=== PATIENT | female | born 1990 | race African-American/Black ===

== ENCOUNTER 2018-03-15 02:00 | Observation (INO) ==
[2018-03-15] MEDS ORDERED: diphenhydrAMINE 50 MG/1 ML VIAL IV STA (05:51)
[2018-03-15] MEDS ORDERED: ONDANSETRON 4 MG/2 ML VIAL IV STA (05:51)
[2018-03-15] MEDS ORDERED: HYDROmorphone 2 MG/1 ML VIAL IV STA ×2 (05:51→06:55)
[2018-03-15] MEDS ORDERED: SODIUM CHLORIDE 0.9% 1,000 ML IV STA ×2 (05:52→05:53)
[2018-03-15] MEDS ORDERED: ASPIRIN 325 MG TABLET PO STA (05:53)
[2018-03-15 06:34] LABS: Basophils % 0.5 % (0.0-0.8); Eosinophils # 0.1 10*3/uL (0.0-0.87); Eosinophils % 0.8 % (0.00-10.9); Hematocrit 23.4 VOL% (35.7-47.0); Hemoglobin 7.8 GM/DL (12.0-16.0); Immature Granulocytes % 0.5 %; Immature Granulocytes Absolute 0.04 #; Lymphocytes % 47.3 % (21.3-54.2); Mean Corpuscular HGB Conc 33.3 GM/DL (32-36); Mean Corpuscular Hemoglobin 31 PG (27-34); Mean Corpuscular Volume 91.4 FL (87-102); Mean Platelet Volume 8.9 FL (9.6-12.0); Monocytes % 11.3 % (1.7-12.7); NRBC # 1.46 10*3/uL; Neutrophils # 3.4 10*3/uL (1.4-7.4); Neutrophils % 39.6 % (38.7-73.9); Platelet Count 453 T/CUMM (130-400); Red Blood Count 2.56 MC/CUMM (3.8-5.5); White Blood Count 8.6 T/CUMM (4-12)
[2018-03-15 07:01] LABS: Albumin 4.2 G/DL (3.4-5.0); Bilirubin,Total 2.6 MG/DL (0.2-1.0); Calcium 8.9 MG/DL (8.5-10.1); Potassium 3.4 MMOL/L (3.5-5.1); Total Protein 7.5 G/DL (6.4-8.3)
[2018-03-15 07:35] LABS: Anisocytosis Slight; Band Neutrophils 1 % (0-10); Elliptocytes 1+; Lymphocytes 70 % (20-55); Macrocytosis Slight; Nucleated Red Blood Cells 16 (0-5); Segmented Neutrophils 27 % (50-85); Sickle Cells Few; Target Cells Few; Total Cells Counted 100
[2018-03-15 07:36] LABS: Platelet Estimate Normal
[2018-03-15] MEDS ORDERED: ONDANSETRON 4 MG/2 ML VIAL IV PRN (08:11)
[2018-03-15] MEDS ORDERED: LIDOCAINE 5% PATCH TRANSDERM PRN (08:16)
[2018-03-15] MEDS ORDERED: METHOCARBAMOL 500 MG TABLET PO PRN (08:16)
[2018-03-15] MEDS: PANTOPRAZOLE 40 MG TABLET PO SCH (12:53)
[2018-03-15] MEDS: MONTELUKAST 10 MG TABLET PO SCH (12:53)
[2018-03-15] MEDS: FOLIC ACID 1 MG TABLET PO SCH (12:53)
[2018-03-15] MEDS: HYDROmorphone 2 MG/1 ML VIAL IV PRN ×3 (13:16→21:18)
[2018-03-15] MEDS: diphenhydrAMINE CAP 25 MG CAPSULE PO PRN ×2 (13:19→21:18)
[2018-03-15] MEDS: SODIUM CHLOR 0.9% KCL 20 MEQ 20 MEQ/1,000 ML BAG IV SCH ×2 (13:20→21:18)
[2018-03-15 18:43] LABS: Apearance,Urine CLEAR (Clear); Bacteria,Urine Occasional /HPF (Few); Bilirubin,Urine Negative (Negative); Blood, Urine Moderate mg/dL (Negative); Glucose,Urine (UA) Negative (Negative); Ketones,Urine Negative (Negative); Mucus,Urine Occasional /LPF (Occasional); Nitrite,Urine Negative (Negative); Protein,Urine Negative; Squamous Epithelial Cell,Urine Occasional /HPF (0-10); Urine Color Straw (Yellow); Urine Specific Gravity 1.006 (1.001-1.035); Urine Urobilinogen < 2.0 EU/DL (0.2-1.0); WBC,Urine <1 /HPF (0-6)
[2018-03-15 20:16] LABS: Barbiturates Screen,Urine Negative (Negative); Benzodiazepines Screen,Urine Negative (Negative); Cannabinoid Screen,Urine Negative (Negative); Opiate Screen,Urine Positive (Negative); Phencyclidine Screen,Urine Negative (Negative)
[2018-03-15] MEDS: HYDROXYUREA 500 MG CAPSULE PO SCH (20:34)
[2018-03-15] MEDS: DOCUSATE SODIUM 100 MG CAPSULE PO SCH (20:34)
[2018-03-16] MEDS: HYDROmorphone 2 MG/1 ML VIAL IV PRN ×6 (02:08→22:03)
[2018-03-16] MEDS ORDERED: HEPARIN LOCK FLUSH 500 UNIT/5 ML SYRINGE IV ONE (04:05)
[2018-03-16 05:17] LABS: Basophils % 0.3 % (0.0-0.8); Eosinophils # 0.2 10*3/uL (0.0-0.87); Eosinophils % 2.2 % (0.00-10.9); Hematocrit 24.2 VOL% (35.7-47.0); Hemoglobin 7.7 GM/DL (12.0-16.0); Immature Granulocytes % 0.5 %; Immature Granulocytes Absolute 0.05 #; Lymphocytes # 4.5 10*3/uL (1.4-4.0); Lymphocytes % 44.4 % (21.3-54.2); Mean Corpuscular HGB Conc 31.8 GM/DL (32-36); Mean Corpuscular Hemoglobin 30 PG (27-34); Mean Corpuscular Volume 93.4 FL (87-102); Mean Platelet Volume 9.7 FL (9.6-12.0); Monocytes # 1.2 10*3/uL (0.11-0.8); Monocytes % 11.9 % (1.7-12.7); Neutrophils # 4.1 10*3/uL (1.4-7.4); Neutrophils % 40.7 % (38.7-73.9); Platelet Count 461 T/CUMM (130-400); Red Blood Count 2.59 MC/CUMM (3.8-5.5); Red Cell Distribution Width 21.3 % (9.3-17.3)
[2018-03-16 05:32] LABS: Calcium 9.1 MG/DL (8.5-10.1); Osmolality,Calculated 277.3 MOS/KG (273-304); Potassium 4.2 MMOL/L (3.5-5.1)
[2018-03-16 05:46] LABS: Eosinophils 4 % (0-10); Lymphocytes 46 % (20-55); Nucleated Red Blood Cells 23 (0-5); Segmented Neutrophils 42 % (50-85); Total Cells Counted 100
[2018-03-16 05:47] LABS: Hypochromasia 1+; Microcytosis 1+; Ovalocytes Few; Pappenheimer Bodies 1+; Polychromasia Few; Sickle Cells Few
[2018-03-16 05:48] LABS: Howell-Jolly Bodies Slight; Platelet Estimate Increased
[2018-03-16 05:49] LABS: Anisocytosis 1+; Poikilocytosis 1+
[2018-03-16] MEDS: SODIUM CHLOR 0.9% KCL 20 MEQ 20 MEQ/1,000 ML BAG IV SCH (06:02)
[2018-03-16] MEDS: FOLIC ACID 1 MG TABLET PO SCH (08:34)
[2018-03-16] MEDS: DOCUSATE SODIUM 100 MG CAPSULE PO SCH ×2 (08:34→20:55)
[2018-03-16] MEDS: PANTOPRAZOLE 40 MG TABLET PO SCH (08:34)
[2018-03-16] MEDS: MONTELUKAST 10 MG TABLET PO SCH (08:34)
[2018-03-16] MEDS ORDERED: SODIUM CHLORIDE 0.9% 1,000 ML IV PRN (09:08)
[2018-03-16] MEDS ORDERED: oxyCODONE/ACETAMINOPHEN 5-325 MG TABLET PO PRN (11:58)
[2018-03-16] MEDS ORDERED: diphenhydrAMINE 50 MG/1 ML VIAL IV ONE (15:10)
[2018-03-16] MEDS ORDERED: ACETAMINOPHEN 325 MG TABLET PO ONE (15:11)
[2018-03-16] MEDS: diphenhydrAMINE CAP 25 MG CAPSULE PO PRN (19:29)
[2018-03-16] MEDS: HYDROXYUREA 500 MG CAPSULE PO SCH (20:55)
[2018-03-17] MEDS: diphenhydrAMINE CAP 25 MG CAPSULE PO PRN ×2 (00:04→08:04)
[2018-03-17] MEDS ORDERED: diphenhydrAMINE 50 MG/1 ML VIAL IV ONE (00:21)
[2018-03-17] MEDS: HYDROmorphone 2 MG/1 ML VIAL IV PRN ×3 (02:18→09:59)
[2018-03-17 02:30] LABS: Basophils % 0.4 % (0.0-0.8); Eosinophils # 0.2 10*3/uL (0.0-0.87); Eosinophils % 2.5 % (0.00-10.9); Hematocrit 30.1 VOL% (35.7-47.0); Hemoglobin 10.4 GM/DL (12.0-16.0); Immature Granulocytes % 0.4 %; Immature Granulocytes Absolute 0.03 #; Lymphocytes # 3.9 10*3/uL (1.4-4.0); Lymphocytes % 46.4 % (21.3-54.2); Mean Corpuscular HGB Conc 34.6 GM/DL (32-36); Mean Corpuscular Hemoglobin 31 PG (27-34); Mean Corpuscular Volume 90.1 FL (87-102); Mean Platelet Volume 8.6 FL (9.6-12.0); Monocytes % 12.2 % (1.7-12.7); NRBC # 0.69 10*3/uL; Neutrophils # 3.2 10*3/uL (1.4-7.4); Neutrophils % 38.1 % (38.7-73.9); Platelet Count 387 T/CUMM (130-400); Red Blood Count 3.34 MC/CUMM (3.8-5.5); Red Cell Distribution Width 18.2 % (9.3-17.3); White Blood Count 8.4 T/CUMM (4-12)
[2018-03-17 03:04] LABS: Eosinophils 3 % (0-10); Lymphocytes 65 % (20-55); Nucleated Red Blood Cells 10 (0-5); Segmented Neutrophils 25 % (50-85); Total Cells Counted 100
[2018-03-17 03:05] LABS: Ovalocytes 1+; Platelet Estimate Normal; Sickle Cells Few; Target Cells Few
[2018-03-17 07:40] VITALS: BP 107/53
[2018-03-17] MEDS: FOLIC ACID 1 MG TABLET PO SCH (10:03)
[2018-03-17] MEDS: MONTELUKAST 10 MG TABLET PO SCH (10:04)
[2018-03-17] MEDS: PANTOPRAZOLE 40 MG TABLET PO SCH (10:04)
[2018-03-17] MEDS: DOCUSATE SODIUM 100 MG CAPSULE PO SCH (10:04)
[2018-03-17] MEDS ORDERED: HEPARIN LOCK FLUSH 500 UNIT/5 ML SYRINGE IV ONE (11:05)
== END 2018-03-17 11:40 | disposition home or self-care (01) ==
LOC: N.ED 02:00 → N.EDINP 02:00 → SUATTDRO 08:11 → N.4E 09:42
PROVIDERS: ADMIT Internal Medicine; ATTEND Internal Medicine

== ENCOUNTER 2018-05-22 14:12 | Inpatient (IN) ==
[2018-05-22] MEDS ORDERED: SODIUM CHLORIDE 0.9% 1,000 ML IV STA ×2 (15:03→17:19)
[2018-05-22] MEDS ORDERED: MORPHINE 4 MG/1 ML VIAL IV STA (15:03)
[2018-05-22] MEDS ORDERED: MORPHINE 4 MG/1 ML VIAL ONE (15:20)
[2018-05-22] MEDS ORDERED: HYDROmorphone 2 MG/1 ML VIAL IV STA ×2 (15:23→17:18)
[2018-05-22] MEDS ORDERED: HYDROmorphone 2 MG/1 ML VIAL ONE ×2 (15:26→17:14)
[2018-05-22 15:36] LABS: Basophils % 0.4 % (0.0-0.8); Eosinophils # 0.1 10*3/uL (0.0-0.87); Eosinophils % 0.7 % (0.00-10.9); Immature Granulocytes % 0.4 %; Immature Granulocytes Absolute 0.03 #; Lymphocytes # 1.8 10*3/uL (1.4-4.0); Lymphocytes % 24.9 % (21.3-54.2); Mean Corpuscular HGB Conc 32.2 GM/DL (32-36); Mean Corpuscular Hemoglobin 30 PG (27-34); Mean Corpuscular Volume 91.6 FL (87-102); Monocytes # 1.5 10*3/uL (0.11-0.8); Monocytes % 20.5 % (1.7-12.7); NRBC # 0.09 10*3/uL; Neutrophils # 3.9 10*3/uL (1.4-7.4); Neutrophils % 53.1 % (38.7-73.9); Platelet Count 305 T/CUMM (130-400); Red Blood Count 1.66 MC/CUMM (3.8-5.5); Red Cell Distribution Width 19.4 % (9.3-17.3); White Blood Count 7.3 T/CUMM (4-12)
[2018-05-22 15:39] LABS: Hemoglobin 4.9 GM/DL (12.0-16.0)
[2018-05-22 15:40] LABS: Hematocrit 15.2 VOL% (35.7-47.0)
[2018-05-22 15:49] LABS: Apearance,Urine CLEAR (Clear); Bacteria,Urine Occasional /HPF (Few); Bilirubin,Urine Negative (Negative); Blood, Urine Negative (Negative); Glucose,Urine (UA) Negative (Negative); Ketones,Urine Negative (Negative); Nitrite,Urine Negative (Negative); Protein,Urine Negative; RBC,Urine <1 /HPF (0-4); Squamous Epithelial Cell,Urine Occasional /HPF (0-10); Urine Color Yellow (Yellow); Urine Specific Gravity 1.005 (1.001-1.035); WBC,Urine <1 /HPF (0-6)
[2018-05-22 16:18] LABS: INR 1.1; PT Patient Result 11.4 SECS; Partial Thromboplastin Time 29.2 SECS (0-40)
[2018-05-22 16:20] LABS: Alanine Aminotransferase 16 U/L (13-56); Albumin 2.5 G/DL (3.4-5.0); Alkaline Phosphatase 49 U/L (45-117); Aspartate Amino Transferase 24 U/L (0-37); Blood Urea Nitrogen 2 MG/DL (7-18); Glucose 60 MG/DL (74-106); Osmolality,Calculated 285.4 MOS/KG (273-304); Sodium 147 MMOL/L (136-145); Total Protein 4.5 G/DL (6.4-8.3); Troponin I < 0.015 NG/ML (0.00-0.045)
[2018-05-22 16:42] LABS: Calcium 8.7 MG/DL (8.5-10.1); Potassium 3.8 MMOL/L (3.5-5.1)
[2018-05-22 17:22] LABS: Lymphocytes 26 % (20-55); Nucleated Red Blood Cells 1 (0-5); Segmented Neutrophils 60 % (50-85)
[2018-05-22 17:23] LABS: Hypochromasia 1+; Macrocytosis Slight; Microcytosis Slight; Polychromasia Few
[2018-05-22] MEDS ORDERED: diphenhydrAMINE CAP 25 MG CAPSULE PO STA (17:23)
[2018-05-22 17:24] LABS: Sickle Cells Few
[2018-05-22 17:25] LABS: Platelet Estimate Normal; Total Cells Counted 100
[2018-05-22] MEDS ORDERED: diphenhydrAMINE CAP 25 MG CAPSULE ONE (17:25)
[2018-05-22] MEDS ORDERED: ACETAMINOPHEN 325 MG TABLET PO PRN (17:34)
[2018-05-22] MEDS ORDERED: ONDANSETRON 4 MG/2 ML VIAL IV PRN (17:34)
[2018-05-22] MEDS ORDERED: SODIUM CHLORIDE 0.9% 1,000 ML IV SCH (18:00)
[2018-05-22] MEDS ORDERED: SODIUM CHLORIDE 0.9% 1,000 ML IV PRN (18:13)
[2018-05-22] MEDS ORDERED: HYDROmorphone 2 MG/1 ML VIAL IV SCH (18:30)
[2018-05-22] MEDS: HYDROXYUREA 500 MG CAPSULE PO SCH (20:22)
[2018-05-22] MEDS: FOLIC ACID 1 MG TABLET PO SCH (20:23)
[2018-05-22] MEDS: MONTELUKAST 10 MG TABLET PO SCH (20:23)
[2018-05-22] MEDS: HYDROmorphone 2 MG/1 ML VIAL IV PRN (20:27)
[2018-05-22] MEDS: SODIUM CHLORIDE 0.45% 1,000 ML IV SCH (20:30)
[2018-05-22] MEDS ORDERED: Deferasirox [Jadenu] 360 MG PO SCH (21:00)
[2018-05-23] MEDS: diphenhydrAMINE CAP 25 MG CAPSULE PO PRN (00:08)
[2018-05-23] MEDS: HYDROmorphone 2 MG/1 ML VIAL IV PRN ×7 (00:09→21:31)
[2018-05-23] MEDS: SODIUM CHLORIDE 0.45% 1,000 ML IV SCH ×3 (08:01→18:35)
[2018-05-23 08:20] LABS: Basophils # 0.1 10*3/uL (0.0-0.2); Basophils % 0.9 % (0.0-0.8); Eosinophils # 0.1 10*3/uL (0.0-0.87); Eosinophils % 1.5 % (0.00-10.9); Hematocrit 27.6 VOL% (35.7-47.0); Hemoglobin 9.2 GM/DL (12.0-16.0); Immature Granulocytes % 0.3 %; Immature Granulocytes Absolute 0.02 #; Lymphocytes # 2.6 10*3/uL (1.4-4.0); Lymphocytes % 39.7 % (21.3-54.2); Mean Corpuscular HGB Conc 33.3 GM/DL (32-36); Mean Corpuscular Hemoglobin 30 PG (27-34); Mean Corpuscular Volume 90.2 FL (87-102); Mean Platelet Volume 9.2 FL (9.6-12.0); Monocytes # 1.7 10*3/uL (0.11-0.8); Monocytes % 26.1 % (1.7-12.7); Neutrophils # 2.1 10*3/uL (1.4-7.4); Neutrophils % 31.5 % (38.7-73.9); Platelet Count 380 T/CUMM (130-400); Red Blood Count 3.06 MC/CUMM (3.8-5.5); Red Cell Distribution Width 17.7 % (9.3-17.3); White Blood Count 6.5 T/CUMM (4-12)
[2018-05-23] MEDS: PANTOPRAZOLE 40 MG TABLET PO SCH (08:37)
[2018-05-23 08:58] LABS: Calcium 8.5 MG/DL (8.5-10.1); Osmolality,Calculated 272.5 MOS/KG (273-304); Potassium 4.1 MMOL/L (3.5-5.1); Thyroid Stimulating Hormone 0.471 uIU/ml (0.358-3.74)
[2018-05-23 09:39] LABS: Anisocytosis 2+; Band Neutrophils 6 % (0-10); Lymphocytes 39 % (20-55); Macrocytosis 1+; Nucleated Red Blood Cells 4 (0-5); Platelet Estimate Normal; Poikilocytosis 2+; Polychromasia Slight; Segmented Neutrophils 32 % (50-85); Sickle Cells 1+; Total Cells Counted 100
[2018-05-23 09:40] LABS: Target Cells Few
[2018-05-23] MEDS: FLUTICASONE 50 MCG NASAL SPRAY 16 GM BOTTLE BOTH NARES SCH ×2 (11:29→21:29)
[2018-05-23] MEDS: PSEUDOEPHEDRINE 30 MG TABLET PO SCH (11:29)
[2018-05-23] MEDS: FOLIC ACID 1 MG TABLET PO SCH (21:30)
[2018-05-23] MEDS: HYDROXYUREA 500 MG CAPSULE PO SCH (21:30)
[2018-05-23] MEDS: MONTELUKAST 10 MG TABLET PO SCH (21:30)
[2018-05-24] MEDS: HYDROmorphone 2 MG/1 ML VIAL IV PRN ×6 (00:54→20:08)
[2018-05-24] MEDS: SODIUM CHLORIDE 0.45% 1,000 ML IV SCH ×3 (04:13→22:59)
[2018-05-24 05:19] LABS: Basophils # 0.1 10*3/uL (0.0-0.2); Basophils % 0.9 % (0.0-0.8); Eosinophils # 0.2 10*3/uL (0.0-0.87); Eosinophils % 3.1 % (0.00-10.9); Hematocrit 28.1 VOL% (35.7-47.0); Hemoglobin 9.4 GM/DL (12.0-16.0); Immature Granulocytes % 0.1 %; Immature Granulocytes Absolute 0.01 #; Lymphocytes # 3.2 10*3/uL (1.4-4.0); Lymphocytes % 43.3 % (21.3-54.2); Mean Corpuscular HGB Conc 33.5 GM/DL (32-36); Mean Corpuscular Hemoglobin 30 PG (27-34); Mean Corpuscular Volume 88.4 FL (87-102); Mean Platelet Volume 9.6 FL (9.6-12.0); Monocytes # 1.3 10*3/uL (0.11-0.8); Monocytes % 17.1 % (1.7-12.7); NRBC # 0.05 10*3/uL; Neutrophils # 2.7 10*3/uL (1.4-7.4); Neutrophils % 35.5 % (38.7-73.9); Platelet Count 409 T/CUMM (130-400); Red Blood Count 3.18 MC/CUMM (3.8-5.5); Red Cell Distribution Width 17.2 % (9.3-17.3); White Blood Count 7.5 T/CUMM (4-12)
[2018-05-24 05:45] LABS: Calcium 8.8 MG/DL (8.5-10.1); Osmolality,Calculated 278.3 MOS/KG (273-304); Potassium 3.8 MMOL/L (3.5-5.1)
[2018-05-24 06:44] LABS: Anisocytosis 2+; Eosinophils 3 % (0-10); Lymphocytes 46 % (20-55); Nucleated Red Blood Cells 2 (0-5); Platelet Estimate Normal; Poikilocytosis 1+; Segmented Neutrophils 33 % (50-85); Total Cells Counted 100
[2018-05-24 06:46] LABS: Target Cells 1+
[2018-05-24 06:47] LABS: Macrocytosis 1+; Sickle Cells 1+
[2018-05-24] MEDS ORDERED: oxyCODONE/ACETAMINOPHEN 5-325 MG TABLET PO PRN (08:00)
[2018-05-24] MEDS ORDERED: oxyCODONE IR 5 MG TABLET PO PRN (08:00)
[2018-05-24] MEDS: PSEUDOEPHEDRINE 30 MG TABLET PO SCH ×3 (11:29→22:54)
[2018-05-24] MEDS: PANTOPRAZOLE 40 MG TABLET PO SCH (11:29)
[2018-05-24] MEDS: FLUTICASONE 50 MCG NASAL SPRAY 16 GM BOTTLE BOTH NARES SCH ×2 (11:29→20:07)
[2018-05-24] MEDS: MONTELUKAST 10 MG TABLET PO SCH (20:07)
[2018-05-24] MEDS: FOLIC ACID 1 MG TABLET PO SCH (20:07)
[2018-05-24] MEDS: HYDROXYUREA 500 MG CAPSULE PO SCH (20:07)
[2018-05-25] MEDS: HYDROmorphone 2 MG/1 ML VIAL IV PRN
[2018-05-25] MEDS: diphenhydrAMINE CAP 25 MG CAPSULE PO PRN (00:19)
[2018-05-25] MEDS ORDERED: HYDROmorphone 2 MG/1 ML VIAL IV ONE (04:28)
[2018-05-25 05:52] LABS: Basophils # 0.1 10*3/uL (0.0-0.2); Basophils % 0.7 % (0.0-0.8); Eosinophils # 0.2 10*3/uL (0.0-0.87); Eosinophils % 2.5 % (0.00-10.9); Hematocrit 29.5 VOL% (35.7-47.0); Hemoglobin 9.5 GM/DL (12.0-16.0); Immature Granulocytes % 0.3 %; Immature Granulocytes Absolute 0.02 #; Lymphocytes % 39.1 % (21.3-54.2); Mean Corpuscular HGB Conc 32.2 GM/DL (32-36); Mean Corpuscular Hemoglobin 29 PG (27-34); Mean Corpuscular Volume 90.2 FL (87-102); Mean Platelet Volume 9.6 FL (9.6-12.0); Monocytes # 0.9 10*3/uL (0.11-0.8); Monocytes % 11.5 % (1.7-12.7); NRBC # 0.05 10*3/uL; Neutrophils # 3.5 10*3/uL (1.4-7.4); Neutrophils % 45.9 % (38.7-73.9); Platelet Count 428 T/CUMM (130-400); Red Blood Count 3.27 MC/CUMM (3.8-5.5); Red Cell Distribution Width 16.8 % (9.3-17.3); White Blood Count 7.6 T/CUMM (4-12)
[2018-05-25 06:08] LABS: Calcium 7.9 MG/DL (8.5-10.1); Osmolality,Calculated 275.4 MOS/KG (273-304); Potassium 4.3 MMOL/L (3.5-5.1)
[2018-05-25] MEDS ORDERED: HYDROmorphone 2 MG TABLET PO PRN (08:07)
[2018-05-25] MEDS ORDERED: oxyCODONE ER 20 MG TABLET PO SCH (09:00)
[2018-05-25] MEDS: FLUTICASONE 50 MCG NASAL SPRAY 16 GM BOTTLE BOTH NARES SCH (09:07)
[2018-05-25] MEDS: PANTOPRAZOLE 40 MG TABLET PO SCH (09:07)
[2018-05-25] MEDS: SODIUM CHLORIDE 0.45% 1,000 ML IV SCH (09:08)
[2018-05-25 13:01] VITALS: BP 120/68
== END 2018-05-25 16:15 | disposition left against medical advice (07) | DRG 812 ==
LOC: N.ED 14:12 → N.EDINP 17:28 → SUATTDRO 17:28 → N.4E 18:31
PROVIDERS: ADMIT Internal Medicine; ATTEND Hospitalist

== ENCOUNTER 2018-08-10 14:39 | Inpatient (IN) ==
[2018-08-10 15:46] LABS: Basophils # 0.1 10*3/uL (0.0-0.2); Basophils % 0.5 % (0.0-0.8); Eosinophils # 0.2 10*3/uL (0.0-0.87); Eosinophils % 1.5 % (0.00-10.9); Hematocrit 24.6 VOL% (35.7-47.0); Hemoglobin 7.9 GM/DL (12.0-16.0); Immature Granulocytes % 0.3 %; Immature Granulocytes Absolute 0.03 #; Lymphocytes # 4.1 10*3/uL (1.4-4.0); Lymphocytes % 38.2 % (21.3-54.2); Mean Corpuscular HGB Conc 32.1 GM/DL (32-36); Mean Corpuscular Hemoglobin 30 PG (27-34); Mean Corpuscular Volume 91.8 FL (87-102); Mean Platelet Volume 9.2 FL (9.6-12.0); Monocytes # 0.9 10*3/uL (0.11-0.8); Monocytes % 8.1 % (1.7-12.7); Neutrophils # 5.6 10*3/uL (1.4-7.4); Neutrophils % 51.4 % (38.7-73.9); Platelet Count 492 T/CUMM (130-400); Red Blood Count 2.68 MC/CUMM (3.8-5.5); Red Cell Distribution Width 16.5 % (9.3-17.3); White Blood Count 10.8 T/CUMM (4-12)
[2018-08-10 15:54] LABS: Apearance,Urine CLEAR (Clear); Bacteria,Urine Occasional /HPF (Few); Bilirubin,Urine Negative (Negative); Blood, Urine Negative (Negative); Glucose,Urine (UA) Negative (Negative); Ketones,Urine Negative (Negative); Mucus,Urine Occasional /LPF (Occasional); Nitrite,Urine Negative (Negative); Protein,Urine Negative; RBC,Urine 1 /HPF (0-4); Squamous Epithelial Cell,Urine Occasional /HPF (0-10); Urine Color Yellow (Yellow); Urine Specific Gravity 1.009 (1.001-1.035); Urine Urobilinogen < 2.0 EU/DL (0.2-1.0); WBC,Urine <1 /HPF (0-6)
[2018-08-10 16:06] LABS: Albumin 3.7 G/DL (3.4-5.0); Bilirubin,Total 1.9 MG/DL (0.2-1.0); Calcium 8.3 MG/DL (8.5-10.1); Potassium 3.6 MMOL/L (3.5-5.1); Total Protein 6.9 G/DL (6.4-8.3)
[2018-08-10] MEDS ORDERED: SODIUM CHLORIDE 0.9% 1,000 ML IV STA (16:25)
[2018-08-10] MEDS ORDERED: HYDROmorphone 2 MG/1 ML VIAL IV STA ×2 (16:25→17:41)
[2018-08-10] MEDS ORDERED: ONDANSETRON 4 MG/2 ML VIAL IV STA (16:25)
[2018-08-10 16:42] LABS: Anisocytosis 1+; Lymphocytes 40 % (20-55); Segmented Neutrophils 54 % (50-85); Total Cells Counted 100
[2018-08-10 16:43] LABS: Hypochromasia 1+; Platelet Estimate Normal; Poikilocytosis 1+; Target Cells Few
[2018-08-10 16:44] LABS: Sickle Cells 1+
[2018-08-10] MEDS ORDERED: diphenhydrAMINE 50 MG/1 ML VIAL ONE (16:53)
[2018-08-10] MEDS ORDERED: diphenhydrAMINE 50 MG/1 ML VIAL IV STA (16:53)
[2018-08-10] MEDS ORDERED: ACETAMINOPHEN 325 MG TABLET PO PRN (18:37)
[2018-08-10] MEDS ORDERED: ONDANSETRON 4 MG/2 ML VIAL IV PRN (18:37)
[2018-08-10] MEDS ORDERED: SODIUM CHLORIDE 0.9% 1,000 ML IV PRN (19:04)
[2018-08-10] MEDS: oxyCODONE/ACETAMINOPHEN 5-325 MG TABLET PO PRN (19:35)
[2018-08-10] MEDS ORDERED: Deferasirox [Jadenu] 360 MG PO SCH (21:00)
[2018-08-10] MEDS: diphenhydrAMINE CAP 25 MG CAPSULE PO PRN (21:09)
[2018-08-10] MEDS: HYDROmorphone 2 MG/1 ML VIAL IV PRN (21:10)
[2018-08-10] MEDS: SODIUM CHLORIDE 0.9% 1,000 ML IV SCH (21:53)
[2018-08-10] MEDS: MONTELUKAST 10 MG TABLET PO SCH (23:03)
[2018-08-10] MEDS: HYDROXYUREA 500 MG CAPSULE PO SCH (23:03)
[2018-08-11] MEDS: diphenhydrAMINE CAP 25 MG CAPSULE PO PRN ×2 (00:19→21:27)
[2018-08-11] MEDS: HYDROmorphone 2 MG/1 ML VIAL IV PRN ×9 (00:20→21:25)
[2018-08-11 05:31] LABS: Hematocrit 26.9 VOL% (35.7-47.0); Hemoglobin 8.7 GM/DL (12.0-16.0)
[2018-08-11 05:33] LABS: Basophils % 0.3 % (0.0-0.8); Eosinophils # 0.2 10*3/uL (0.0-0.87); Eosinophils % 2.8 % (0.00-10.9); Hematocrit 27.2 VOL% (35.7-47.0); Hemoglobin 8.8 GM/DL (12.0-16.0); Immature Granulocytes % 0.3 %; Immature Granulocytes Absolute 0.03 #; Lymphocytes # 2.9 10*3/uL (1.4-4.0); Mean Corpuscular HGB Conc 32.4 GM/DL (32-36); Mean Corpuscular Hemoglobin 29 PG (27-34); Mean Corpuscular Volume 90.4 FL (87-102); Mean Platelet Volume 9.6 FL (9.6-12.0); Monocytes % 11.5 % (1.7-12.7); NRBC # 0.05 10*3/uL; Neutrophils # 4.4 10*3/uL (1.4-7.4); Neutrophils % 51.1 % (38.7-73.9); Platelet Count 418 T/CUMM (130-400); Red Blood Count 3.01 MC/CUMM (3.8-5.5); Red Cell Distribution Width 15.9 % (9.3-17.3); White Blood Count 8.6 T/CUMM (4-12)
[2018-08-11 05:58] LABS: Eosinophils 3 % (0-10); Lymphocytes 37 % (20-55); Segmented Neutrophils 53 % (50-85); Total Cells Counted 100
[2018-08-11 05:59] LABS: Hypochromasia 1+; Microcytosis 1+; Platelet Estimate Normal; Sickle Cells Few; Target Cells Few
[2018-08-11 06:08] LABS: Calcium 8.4 MG/DL (8.5-10.1); Osmolality,Calculated 283.8 MOS/KG (273-304); Potassium 3.5 MMOL/L (3.5-5.1); Thyroid Stimulating Hormone 1.3 uIU/ml (0.358-3.74)
[2018-08-11] MEDS: SODIUM CHLORIDE 0.9% 1,000 ML IV SCH ×2 (07:24→15:42)
[2018-08-11] MEDS: FOLIC ACID 1 MG TABLET PO SCH ×2 (07:54→08:06)
[2018-08-11] MEDS: oxyCODONE/ACETAMINOPHEN 5-325 MG TABLET PO PRN ×2 (07:54→14:08)
[2018-08-11] MEDS: oxyCODONE IR 5 MG TABLET PO PRN (16:54)
[2018-08-11] MEDS ORDERED: SENNA 8.6 MG TABLET PO SCH (21:00)
[2018-08-11] MEDS: MONTELUKAST 10 MG TABLET PO SCH (21:27)
[2018-08-11] MEDS: HYDROXYUREA 500 MG CAPSULE PO SCH (21:27)
[2018-08-11] MEDS: POLYETHYLENE GLYCOL POWDER 17 GM PACK PO SCH (21:30)
[2018-08-11] MEDS: DOCUSATE SODIUM 100 MG CAPSULE PO SCH (21:31)
[2018-08-12] MEDS: HYDROmorphone 2 MG/1 ML VIAL IV PRN ×6 (00:38→15:40)
[2018-08-12] MEDS: SODIUM CHLORIDE 0.9% 1,000 ML IV SCH ×2 (01:34→11:54)
[2018-08-12] MEDS: oxyCODONE IR 5 MG TABLET PO PRN ×3 (02:32→14:50)
[2018-08-12] MEDS: diphenhydrAMINE CAP 25 MG CAPSULE PO PRN (03:24)
[2018-08-12 05:16] LABS: Basophils # 0.1 10*3/uL (0.0-0.2); Basophils % 0.6 % (0.0-0.8); Eosinophils # 0.3 10*3/uL (0.0-0.87); Eosinophils % 3.4 % (0.00-10.9); Hematocrit 27.3 VOL% (35.7-47.0); Hemoglobin 8.8 GM/DL (12.0-16.0); Immature Granulocytes % 0.2 %; Immature Granulocytes Absolute 0.02 #; Lymphocytes # 3.6 10*3/uL (1.4-4.0); Lymphocytes % 40.8 % (21.3-54.2); Mean Corpuscular HGB Conc 32.2 GM/DL (32-36); Mean Corpuscular Hemoglobin 29 PG (27-34); Mean Corpuscular Volume 90.7 FL (87-102); Mean Platelet Volume 9.6 FL (9.6-12.0); Monocytes % 11.7 % (1.7-12.7); Neutrophils # 3.8 10*3/uL (1.4-7.4); Neutrophils % 43.3 % (38.7-73.9); Platelet Count 425 T/CUMM (130-400); Red Blood Count 3.01 MC/CUMM (3.8-5.5); Red Cell Distribution Width 16.1 % (9.3-17.3); White Blood Count 8.9 T/CUMM (4-12)
[2018-08-12 05:38] LABS: Calcium 8.7 MG/DL (8.5-10.1); Osmolality,Calculated 275.4 MOS/KG (273-304); Potassium 3.6 MMOL/L (3.5-5.1)
[2018-08-12 06:36] LABS: Eosinophils 2 % (0-10); Lymphocytes 36 % (20-55); Metamyelocytes 1 %; Nucleated Red Blood Cells 1 (0-5); Segmented Neutrophils 48 % (50-85); Total Cells Counted 100
[2018-08-12 06:37] LABS: Platelet Estimate Increased
[2018-08-12] MEDS: DOCUSATE SODIUM 100 MG CAPSULE PO SCH (08:59)
[2018-08-12] MEDS: FOLIC ACID 1 MG TABLET PO SCH (08:59)
[2018-08-12] MEDS: POLYETHYLENE GLYCOL POWDER 17 GM PACK PO SCH (09:00)
[2018-08-12 16:28] VITALS: BP 111/54
[2018-08-12] MEDS ORDERED: oxyCODONE ER 10 MG TABLET PO SCH (21:00)
== END 2018-08-12 17:30 | disposition home or self-care (01) | DRG 812 ==
LOC: N.ED 14:39 → N.EDINP 18:50 → SUATTDRO 18:50 → N.4E 19:45
PROVIDERS: ADMIT Internal Medicine Nephrology; ATTEND Hospitalist

== ENCOUNTER 2018-12-18 17:00 | Observation (INO) ==
[2018-12-18] MEDS ORDERED: HYDROmorphone 2 MG/1 ML VIAL IV STA ×3 (18:54→20:04)
[2018-12-18] MEDS ORDERED: SODIUM CHLORIDE 0.9% 1,000 ML IV STA (18:54)
[2018-12-18] MEDS ORDERED: ONDANSETRON 4 MG/2 ML VIAL IV STA (18:54)
[2018-12-18] MEDS ORDERED: diphenhydrAMINE 50 MG/1 ML VIAL IV STA ×2 (18:55→19:30)
[2018-12-18 19:21] LABS: Basophils # 0.1 10*3/uL (0.0-0.2); Basophils % 0.7 % (0.0-0.8); Eosinophils # 0.2 10*3/uL (0.0-0.87); Hematocrit 26.8 VOL% (35.7-47.0); Hemoglobin 8.5 GM/DL (12.0-16.0); Immature Granulocytes % 0.4 %; Immature Granulocytes Absolute 0.04 #; Lymphocytes # 2.7 10*3/uL (1.4-4.0); Lymphocytes % 28.1 % (21.3-54.2); Mean Corpuscular HGB Conc 31.7 GM/DL (32-36); Mean Corpuscular Volume 87.3 FL (87-102); Mean Platelet Volume 9.1 FL (9.6-12.0); Monocytes % 9.2 % (1.7-12.7); NRBC # 0.05 10*3/uL; Neutrophils % 59.6 % (38.7-73.9); Platelet Count 694 T/CUMM (130-400); Red Blood Count 3.07 MC/CUMM (3.8-5.5); Red Cell Distribution Width 16.8 % (9.3-17.3); White Blood Count 9.6 T/CUMM (4-12)
[2018-12-18 19:51] LABS: Albumin 4.5 G/DL (3.4-5.0); Bilirubin,Total 2.1 MG/DL (0.2-1.0); Calcium 9.2 MG/DL (8.5-10.1); Osmolality,Calculated 277.3 MOS/KG (273-304); Total Protein 8.6 G/DL (6.4-8.3)
[2018-12-18] MEDS ORDERED: DOCUSATE SODIUM 100 MG CAPSULE PO PRN (20:59)
[2018-12-18] MEDS ORDERED: ONDANSETRON 4 MG/2 ML VIAL IV PRN (20:59)
[2018-12-18] MEDS ORDERED: diphenhydrAMINE CAP 50 MG CAPSULE PO PRN (21:04)
[2018-12-18 21:29] LABS: Thyroid Stimulating Hormone 0.382 uIU/ml (0.358-3.74)
[2018-12-18] MEDS: DEXTROSE 5% NACL 0.45% 1,000 ML IV SCH (22:55)
[2018-12-18] MEDS: ENOXAPARIN 40 MG/0.4 ML SYRINGE SUBCUT SCH (22:58)
[2018-12-18] MEDS: HYDROmorphone 2 MG/1 ML VIAL IV PRN (23:51)
[2018-12-19] MEDS: diphenhydrAMINE 50 MG/1 ML VIAL IV PRN ×4 (02:56→21:52)
[2018-12-19] MEDS: HYDROmorphone 2 MG/1 ML VIAL IV PRN ×7 (02:58→21:49)
[2018-12-19 05:23] LABS: Basophils # 0.1 10*3/uL (0.0-0.2); Basophils % 0.6 % (0.0-0.8); Eosinophils # 0.3 10*3/uL (0.0-0.87); Eosinophils % 3.1 % (0.00-10.9); Hemoglobin 7.6 GM/DL (12.0-16.0); Immature Granulocytes % 0.2 %; Immature Granulocytes Absolute 0.02 #; Lymphocytes # 4.6 10*3/uL (1.4-4.0); Mean Corpuscular HGB Conc 31.7 GM/DL (32-36); Mean Corpuscular Volume 87.6 FL (87-102); Mean Platelet Volume 9.3 FL (9.6-12.0); Monocytes % 14.2 % (1.7-12.7); NRBC # 0.03 10*3/uL; Neutrophils % 34.9 % (38.7-73.9); Platelet Count 584 T/CUMM (130-400); Red Blood Count 2.74 MC/CUMM (3.8-5.5); Red Cell Distribution Width 16.6 % (9.3-17.3); White Blood Count 9.8 T/CUMM (4-12)
[2018-12-19 05:45] LABS: Eosinophils 1 % (0-10); Lymphocytes 56 % (20-55); Nucleated Red Blood Cells 1 (0-5); Segmented Neutrophils 36 % (50-85); Total Cells Counted 100
[2018-12-19 05:46] LABS: Anisocytosis 1+; Hypochromasia Slight; Microcytosis 1+
[2018-12-19 05:47] LABS: Target Cells 1+
[2018-12-19 05:48] LABS: Sickle Cells Slight
[2018-12-19 05:49] LABS: Platelet Estimate Increased
[2018-12-19 05:56] LABS: Albumin 3.9 G/DL (3.4-5.0); Calcium 8.7 MG/DL (8.5-10.1); Osmolality,Calculated 278.3 MOS/KG (273-304)
[2018-12-19] MEDS: DEXTROSE 5% NACL 0.45% 1,000 ML IV SCH ×3 (07:14→21:58)
[2018-12-19] MEDS: FOLIC ACID 1 MG TABLET PO SCH (09:14)
[2018-12-19] MEDS: PANTOPRAZOLE 40 MG TABLET PO SCH (09:14)
[2018-12-19] MEDS: HYDROXYUREA 500 MG CAPSULE PO SCH (20:28)
[2018-12-19] MEDS: MONTELUKAST 10 MG TABLET PO SCH (20:28)
[2018-12-19] MEDS: ENOXAPARIN 40 MG/0.4 ML SYRINGE SUBCUT SCH ×2 (20:29→20:32)
[2018-12-20] MEDS: HYDROmorphone 2 MG/1 ML VIAL IV PRN ×8 (00:55→23:00)
[2018-12-20] MEDS: diphenhydrAMINE 50 MG/1 ML VIAL IV PRN ×4 (04:04→23:03)
[2018-12-20] MEDS: DEXTROSE 5% NACL 0.45% 1,000 ML IV SCH ×3 (06:12→23:16)
[2018-12-20 06:31] LABS: Basophils # 0.1 10*3/uL (0.0-0.2); Basophils % 0.6 % (0.0-0.8); Eosinophils # 0.5 10*3/uL (0.0-0.87); Eosinophils % 4.8 % (0.00-10.9); Hematocrit 22.2 VOL% (35.7-47.0); Hemoglobin 7.2 GM/DL (12.0-16.0); Immature Granulocytes % 0.3 %; Immature Granulocytes Absolute 0.03 #; Lymphocytes % 38.1 % (21.3-54.2); Mean Corpuscular HGB Conc 32.4 GM/DL (32-36); Mean Corpuscular Volume 88.1 FL (87-102); Monocytes % 14.5 % (1.7-12.7); NRBC # 0.02 10*3/uL; Neutrophils % 41.7 % (38.7-73.9); Platelet Count 526 T/CUMM (130-400); Red Blood Count 2.52 MC/CUMM (3.8-5.5); Red Cell Distribution Width 16.8 % (9.3-17.3); White Blood Count 10.4 T/CUMM (4-12)
[2018-12-20 06:51] LABS: Albumin 3.9 G/DL (3.4-5.0); Bilirubin,Total 1.8 MG/DL (0.2-1.0); Calcium 8.9 MG/DL (8.5-10.1); Osmolality,Calculated 279.3 MOS/KG (273-304); Total Protein 6.9 G/DL (6.4-8.3)
[2018-12-20] MEDS: PANTOPRAZOLE 40 MG TABLET PO SCH (10:04)
[2018-12-20] MEDS: FOLIC ACID 1 MG TABLET PO SCH (10:04)
[2018-12-20] MEDS: POLYETHYLENE GLYCOL POWDER 17 GM PACK PO SCH ×2 (13:15→21:01)
[2018-12-20] MEDS: HYDROXYUREA 500 MG CAPSULE PO SCH (20:56)
[2018-12-20] MEDS: MONTELUKAST 10 MG TABLET PO SCH (21:00)
[2018-12-20] MEDS: ENOXAPARIN 40 MG/0.4 ML SYRINGE SUBCUT SCH (22:29)
[2018-12-21] MEDS: HYDROmorphone 2 MG/1 ML VIAL IV PRN ×4 (02:18→12:09)
[2018-12-21] MEDS: diphenhydrAMINE 50 MG/1 ML VIAL IV PRN ×2 (05:21→12:12)
[2018-12-21] MEDS: DEXTROSE 5% NACL 0.45% 1,000 ML IV SCH (05:24)
[2018-12-21] MEDS: FOLIC ACID 1 MG TABLET PO SCH (08:52)
[2018-12-21] MEDS: PANTOPRAZOLE 40 MG TABLET PO SCH (08:52)
[2018-12-21] MEDS: POLYETHYLENE GLYCOL POWDER 17 GM PACK PO SCH (08:53)
[2018-12-21 13:18] VITALS: BP 102/54
== END 2018-12-21 13:50 | disposition home or self-care (01) ==
LOC: N.ED 17:00 → N.EDINP 17:00 → N.2E 22:18
PROVIDERS: ADMIT Internal Medicine; ATTEND Internal Medicine

== ENCOUNTER 2019-01-10 19:30 | Inpatient (IN) ==
[2019-01-10] MEDS ORDERED: HYDROmorphone 2 MG/1 ML VIAL IV STA ×2 (23:07→23:59)
[2019-01-10] MEDS: LACTATED RINGERS 1,000 ML IV SCH (23:30)
[2019-01-10] MEDS ORDERED: ONDANSETRON 4 MG/2 ML VIAL ONE (23:33)
[2019-01-10 23:38] LABS: Basophils # 0.1 10*3/uL (0.0-0.2); Basophils % 0.6 % (0.0-0.8); Eosinophils # 0.1 10*3/uL (0.0-0.87); Eosinophils % 1.2 % (0.00-10.9); Hematocrit 23.2 VOL% (35.7-47.0); Hemoglobin 7.5 GM/DL (12.0-16.0); Immature Granulocytes % 0.4 %; Immature Granulocytes Absolute 0.04 #; Lymphocytes # 2.8 10*3/uL (1.4-4.0); Lymphocytes % 27.4 % (21.3-54.2); Mean Corpuscular HGB Conc 32.3 GM/DL (32-36); Mean Corpuscular Volume 88.9 FL (87-102); Mean Platelet Volume 8.5 FL (9.6-12.0); Monocytes % 12.5 % (1.7-12.7); NRBC # 0.17 10*3/uL; Neutrophils % 57.9 % (38.7-73.9); Platelet Count 534 T/CUMM (130-400); Red Blood Count 2.61 MC/CUMM (3.8-5.5); Red Cell Distribution Width 20.6 % (9.3-17.3); White Blood Count 10.4 T/CUMM (4-12)
[2019-01-10] MEDS ORDERED: ONDANSETRON 4 MG/2 ML VIAL IV STA (23:38)
[2019-01-10] MEDS ORDERED: diphenhydrAMINE 50 MG/1 ML VIAL IV STA (23:59)
[2019-01-11 00:12] LABS: Hypochromasia 2+; Microcytosis 2+; Ovalocytes 2+; Platelet Estimate Increased; Polychromasia Few; Target Cells Few; Tear Drop Cells Few
[2019-01-11 00:14] LABS: Howell-Jolly Bodies 2+
[2019-01-11 00:17] LABS: Sickle Cells Few
[2019-01-11] MEDS ORDERED: HYDROmorphone 2 MG/1 ML VIAL IV STA (00:56)
[2019-01-11] MEDS ORDERED: diphenhydrAMINE 50 MG/1 ML VIAL IV STA (01:28)
[2019-01-11] MEDS ORDERED: diphenhydrAMINE 50 MG/1 ML VIAL IV PRN (03:46)
[2019-01-11] MEDS: ONDANSETRON 4 MG/2 ML VIAL IV PRN (04:00)
[2019-01-11] MEDS: HYDROmorphone 2 MG/1 ML VIAL IV PRN ×8 (04:00→22:07)
[2019-01-11] MEDS: SODIUM CHLORIDE 0.9% 1,000 ML IV SCH ×4 (04:51→19:31)
[2019-01-11] MEDS: ENOXAPARIN 40 MG/0.4 ML SYRINGE SUBCUT SCH (04:58)
[2019-01-11] MEDS: LACTATED RINGERS 1,000 ML IV SCH (05:05)
[2019-01-11] MEDS: POTASSIUM CHLORIDE 20 MEQ TABLET PO PRN ×3 (06:19→13:56)
[2019-01-11] MEDS: diphenhydrAMINE 50 MG/1 ML VIAL IV PRN ×3 (11:55→19:52)
[2019-01-11] MEDS ORDERED: oxyCODONE/ACETAMINOPHEN 5-325 MG TABLET PO PRN (13:49)
[2019-01-11 20:01] LABS: Apearance,Urine CLEAR (Clear); Bacteria,Urine Occasional /HPF (Few); Bilirubin,Urine Negative (Negative); Blood, Urine Negative (Negative); Glucose,Urine (UA) Negative (Negative); Ketones,Urine Negative (Negative); Mucus,Urine Occasional /LPF (Occasional); Nitrite,Urine Negative (Negative); Protein,Urine Negative; Squamous Epithelial Cell,Urine Occasional /HPF (0-10); Urine Color Straw (Yellow); Urine Specific Gravity 1.006 (1.001-1.035); Urine Urobilinogen < 2.0 EU/DL (0.2-1.0)
[2019-01-11] MEDS ORDERED: NON-FORMULARY MEDICATION (Deferasirox [Jadenu] 360 MG) PO SCH (21:00)
[2019-01-11] MEDS: HYDROXYUREA 500 MG CAPSULE PO SCH (21:05)
[2019-01-11] MEDS: MONTELUKAST 10 MG TABLET PO SCH (21:05)
[2019-01-12] MEDS: diphenhydrAMINE 50 MG/1 ML VIAL IV PRN ×4 (00:04→23:13)
[2019-01-12] MEDS: HYDROmorphone 2 MG/1 ML VIAL IV PRN ×10 (00:04→23:12)
[2019-01-12] MEDS: SODIUM CHLORIDE 0.9% 1,000 ML IV SCH ×3 (02:09→16:32)
[2019-01-12] MEDS ORDERED: diphenhydrAMINE CAP 25 MG CAPSULE PO PRN (04:10)
[2019-01-12] MEDS: ENOXAPARIN 40 MG/0.4 ML SYRINGE SUBCUT SCH (07:05)
[2019-01-12 07:39] LABS: Basophils # 0.1 10*3/uL (0.0-0.2); Basophils % 0.7 % (0.0-0.8); Eosinophils # 0.3 10*3/uL (0.0-0.87); Eosinophils % 3.8 % (0.00-10.9); Hematocrit 21.3 VOL% (35.7-47.0); Hemoglobin 6.9 GM/DL (12.0-16.0); Immature Granulocytes % 0.4 %; Immature Granulocytes Absolute 0.03 #; Lymphocytes # 3.6 10*3/uL (1.4-4.0); Lymphocytes % 43.4 % (21.3-54.2); Mean Corpuscular HGB Conc 32.4 GM/DL (32-36); Mean Corpuscular Volume 89.5 FL (87-102); Mean Platelet Volume 9.5 FL (9.6-12.0); Monocytes % 13.3 % (1.7-12.7); NRBC # 0.04 10*3/uL; Neutrophils % 38.4 % (38.7-73.9); Platelet Count 487 T/CUMM (130-400); Red Blood Count 2.38 MC/CUMM (3.8-5.5); Red Cell Distribution Width 19.7 % (9.3-17.3); White Blood Count 8.4 T/CUMM (4-12)
[2019-01-12 08:04] LABS: Calcium 8.4 MG/DL (8.5-10.1); Osmolality,Calculated 278.1 MOS/KG (273-304)
[2019-01-12 08:21] LABS: Elliptocytes Few; Eosinophils 7 % (0-10); Hypochromasia 1+; Lymphocytes 49 % (20-55); Nucleated Red Blood Cells 2 (0-5); Platelet Estimate Adequate; Segmented Neutrophils 35 % (50-85); Sickle Cells Few; Total Cells Counted 100
[2019-01-12 08:22] LABS: Howell-Jolly Bodies 1+; Microcytosis 1+
[2019-01-12] MEDS: FOLIC ACID 1 MG TABLET PO SCH (09:15)
[2019-01-12] MEDS: ONDANSETRON 4 MG/2 ML VIAL IV PRN ×2 (16:34→23:14)
[2019-01-12] MEDS: HYDROXYUREA 500 MG CAPSULE PO SCH (20:50)
[2019-01-12] MEDS: MONTELUKAST 10 MG TABLET PO SCH (20:50)
[2019-01-13] MEDS: HYDROmorphone 2 MG/1 ML VIAL IV PRN ×9 (01:07→20:40)
[2019-01-13] MEDS: SODIUM CHLORIDE 0.9% 1,000 ML IV SCH ×4 (01:10→20:51)
[2019-01-13] MEDS: diphenhydrAMINE 50 MG/1 ML VIAL IV PRN ×5 (03:24→20:45)
[2019-01-13 04:32] LABS: Albumin 3.8 G/DL (3.4-5.0); Bilirubin,Total 1.6 MG/DL (0.2-1.0); Calcium 8.5 MG/DL (8.5-10.1); Total Protein 7.1 G/DL (6.4-8.3)
[2019-01-13 04:59] LABS: Basophils # 0.1 10*3/uL (0.0-0.2); Basophils % 0.6 % (0.0-0.8); Eosinophils # 0.4 10*3/uL (0.0-0.87); Eosinophils % 4.9 % (0.00-10.9); Hematocrit 22.3 VOL% (35.7-47.0); Hemoglobin 7.1 GM/DL (12.0-16.0); Immature Granulocytes % 0.4 %; Immature Granulocytes Absolute 0.03 #; Lymphocytes % 47.2 % (21.3-54.2); Mean Corpuscular HGB Conc 31.8 GM/DL (32-36); Mean Corpuscular Volume 89.9 FL (87-102); Mean Platelet Volume 9.5 FL (9.6-12.0); Monocytes % 13.3 % (1.7-12.7); NRBC # 0.04 10*3/uL; Neutrophils % 33.6 % (38.7-73.9); Platelet Count 514 T/CUMM (130-400); Red Blood Count 2.48 MC/CUMM (3.8-5.5); Red Cell Distribution Width 18.6 % (9.3-17.3); White Blood Count 8.4 T/CUMM (4-12)
[2019-01-13] MEDS: ENOXAPARIN 40 MG/0.4 ML SYRINGE SUBCUT SCH (05:32)
[2019-01-13 06:02] LABS: Eosinophils 5 % (0-10); Segmented Neutrophils 27 % (50-85); Total Cells Counted 100
[2019-01-13 06:03] LABS: Band Neutrophils 3 % (0-10); Lymphocytes 50 % (20-55); Metamyelocytes 4 %; Myelocytes 2 %; Platelet Estimate Increased
[2019-01-13 06:04] LABS: Hypochromasia 2+
[2019-01-13 06:06] LABS: Sickle Cells Few
[2019-01-13 06:07] LABS: Acanthocytes 2+; Anisocytosis 3+; Elliptocytes 1+; Macrocytosis 1+; Microcytosis 2+; Ovalocytes 2+; Poikilocytosis 3+
[2019-01-13 06:08] LABS: Howell-Jolly Bodies 2+; Pappenheimer Bodies 2+
[2019-01-13 06:09] LABS: Polychromasia Few
[2019-01-13] MEDS: FOLIC ACID 1 MG TABLET PO SCH (08:01)
[2019-01-13] MEDS: ONDANSETRON 4 MG/2 ML VIAL IV PRN (16:31)
[2019-01-13] MEDS: HYDROXYUREA 500 MG CAPSULE PO SCH (20:39)
[2019-01-13] MEDS: MONTELUKAST 10 MG TABLET PO SCH (20:39)
[2019-01-14] MEDS: HYDROmorphone 2 MG/1 ML VIAL IV PRN ×4 (00:36→12:51)
[2019-01-14] MEDS: diphenhydrAMINE 50 MG/1 ML VIAL IV PRN ×4 (00:37→12:51)
[2019-01-14] MEDS: SODIUM CHLORIDE 0.9% 1,000 ML IV SCH ×2 (03:24→10:01)
[2019-01-14] MEDS: ENOXAPARIN 40 MG/0.4 ML SYRINGE SUBCUT SCH (04:45)
[2019-01-14 06:08] LABS: Basophils # 0.1 10*3/uL (0.0-0.2); Basophils % 0.7 % (0.0-0.8); Eosinophils # 0.4 10*3/uL (0.0-0.87); Eosinophils % 3.8 % (0.00-10.9); Hematocrit 22.5 VOL% (35.7-47.0); Hemoglobin 7.4 GM/DL (12.0-16.0); Immature Granulocytes % 0.3 %; Immature Granulocytes Absolute 0.03 #; Lymphocytes # 3.3 10*3/uL (1.4-4.0); Lymphocytes % 35.3 % (21.3-54.2); Mean Corpuscular HGB Conc 32.9 GM/DL (32-36); Mean Corpuscular Volume 88.6 FL (87-102); Mean Platelet Volume 9.5 FL (9.6-12.0); Monocytes % 11.4 % (1.7-12.7); NRBC # 0.02 10*3/uL; Neutrophils % 48.5 % (38.7-73.9); Platelet Count 523 T/CUMM (130-400); Red Blood Count 2.54 MC/CUMM (3.8-5.5); Red Cell Distribution Width 17.9 % (9.3-17.3); White Blood Count 9.2 T/CUMM (4-12)
[2019-01-14 06:39] LABS: Elliptocytes Few; Howell-Jolly Bodies Few; Hypochromasia 1+; Macrocytosis Slight; Pappenheimer Bodies Few; Platelet Estimate Adequate; Polychromasia Slight; Sickle Cells Few; Target Cells Few
[2019-01-14] MEDS: FOLIC ACID 1 MG TABLET PO SCH (08:21)
[2019-01-14] MEDS ORDERED: HEPARIN LOCK FLUSH 500 UNIT/5 ML SYRINGE IV PRN (08:42)
[2019-01-14 14:12] VITALS: BP 134/72
== END 2019-01-14 04:00 | disposition home or self-care (01) | DRG 812 ==
LOC: N.EDINP 19:30 → N.ED 19:30 → N.4E 01-11 03:54 → SUATTDRO 01-12 15:25
PROVIDERS: ADMIT Family Medicine; ATTEND Internal Medicine

== ENCOUNTER 2019-03-07 10:01 | Observation (INO) ==
[2019-03-07] MEDS ORDERED: ONDANSETRON 4 MG/2 ML VIAL IV STA (11:03)
[2019-03-07] MEDS ORDERED: SODIUM CHLORIDE 0.9% 1,000 ML IV STA (11:03)
[2019-03-07] MEDS ORDERED: HYDROmorphone 2 MG/1 ML VIAL IV STA (11:07)
[2019-03-07] MEDS ORDERED: diphenhydrAMINE 50 MG/1 ML VIAL ONE (11:21)
[2019-03-07] MEDS ORDERED: diphenhydrAMINE 50 MG/1 ML VIAL IV STA (11:30)
[2019-03-07 11:32] LABS: Basophils # 0.1 10*3/uL (0.0-0.2); Basophils % 0.7 % (0.0-0.8); Eosinophils # 0.2 10*3/uL (0.0-0.87); Eosinophils % 2.1 % (0.00-10.9); Hematocrit 22.7 VOL% (35.7-47.0); Hemoglobin 7.8 GM/DL (12.0-16.0); Immature Granulocytes % 0.4 %; Immature Granulocytes Absolute 0.03 #; Lymphocytes # 1.9 10*3/uL (1.4-4.0); Lymphocytes % 25.5 % (21.3-54.2); Mean Corpuscular HGB Conc 34.4 GM/DL (32-36); Mean Corpuscular Volume 86.3 FL (87-102); Mean Platelet Volume 9.2 FL (9.6-12.0); Monocytes % 10.4 % (1.7-12.7); NRBC # 0.03 10*3/uL; Neutrophils % 60.9 % (38.7-73.9); Platelet Count 626 T/CUMM (130-400); Red Blood Count 2.63 MC/CUMM (3.8-5.5); Red Cell Distribution Width 17.2 % (9.3-17.3); White Blood Count 7.6 T/CUMM (4-12)
[2019-03-07 11:49] LABS: Albumin 4.4 G/DL (3.4-5.0); Bilirubin,Total 2.5 MG/DL (0.2-1.0); Calcium 9.3 MG/DL (8.5-10.1); Osmolality,Calculated 285.6 MOS/KG (273-304); Total Protein 7.6 G/DL (6.4-8.3)
[2019-03-07] MEDS ORDERED: SODIUM CHLORIDE 0.9% 1,000 ML IV PRN (13:01)
[2019-03-07] MEDS ORDERED: ONDANSETRON 4 MG/2 ML VIAL IV PRN (13:14)
[2019-03-07] MEDS ORDERED: PROMETHAZINE 25 MG/1 ML VIAL IV PRN (13:14)
[2019-03-07] MEDS ORDERED: ACETAMINOPHEN 325 MG TABLET PO PRN (13:14)
[2019-03-07] MEDS ORDERED: HYDROmorphone 2 MG/1 ML VIAL IV PRN (13:16)
[2019-03-07] MEDS ORDERED: diphenhydrAMINE 50 MG/1 ML VIAL IV PRN (13:16)
[2019-03-07] MEDS ORDERED: oxyCODONE/ACETAMINOPHEN 5-325 MG TABLET PO PRN (13:17)
[2019-03-07] MEDS ORDERED: diphenhydrAMINE 50 MG/1 ML VIAL IV ONE (13:59)
[2019-03-07] MEDS ORDERED: HYDROmorphone 2 MG/1 ML VIAL IV ONE (13:59)
[2019-03-07] MEDS: SODIUM CHLORIDE 0.9% 1,000 ML IV SCH (15:39)
[2019-03-07] MEDS: diphenhydrAMINE 50 MG/1 ML VIAL IV PRN ×2 (19:43→23:58)
[2019-03-07] MEDS: HYDROmorphone 2 MG/1 ML VIAL IV PRN ×3 (19:47→23:55)
[2019-03-07] MEDS ORDERED: NON-FORMULARY MEDICATION (Deferasirox [Jadenu] 360 MG) PO SCH (21:00)
[2019-03-07] MEDS ORDERED: HYDROXYUREA 500 MG CAPSULE PO SCH (21:00)
[2019-03-07] MEDS ORDERED: MONTELUKAST 10 MG TABLET PO SCH (21:00)
[2019-03-07] MEDS ORDERED: FOLIC ACID 1 MG TABLET PO SCH (21:00)
[2019-03-08] MEDS: HYDROmorphone 2 MG/1 ML VIAL IV PRN ×8 (02:02→17:19)
[2019-03-08] MEDS: diphenhydrAMINE 50 MG/1 ML VIAL IV PRN ×4 (04:29→17:23)
[2019-03-08 05:33] LABS: Basophils # 0.1 10*3/uL (0.0-0.2); Basophils % 0.5 % (0.0-0.8); Eosinophils # 0.2 10*3/uL (0.0-0.87); Eosinophils % 2.4 % (0.00-10.9); Hematocrit 28.7 VOL% (35.7-47.0); Hemoglobin 9.7 GM/DL (12.0-16.0); Immature Granulocytes % 0.4 %; Immature Granulocytes Absolute 0.04 #; Lymphocytes # 3.1 10*3/uL (1.4-4.0); Lymphocytes % 33.2 % (21.3-54.2); Mean Corpuscular HGB Conc 33.8 GM/DL (32-36); Mean Corpuscular Volume 85.2 FL (87-102); Mean Platelet Volume 9.8 FL (9.6-12.0); Monocytes % 14.2 % (1.7-12.7); NRBC # 0.02 10*3/uL; Neutrophils % 49.3 % (38.7-73.9); Platelet Count 509 T/CUMM (130-400); Red Blood Count 3.37 MC/CUMM (3.8-5.5); Red Cell Distribution Width 18.1 % (9.3-17.3); White Blood Count 9.3 T/CUMM (4-12)
[2019-03-08 06:09] LABS: Bilirubin,Total 2.4 MG/DL (0.2-1.0); Calcium 9.5 MG/DL (8.5-10.1); Osmolality,Calculated 290.3 MOS/KG (273-304); Risk Ratio 3.09; Total Protein 7.1 G/DL (6.4-8.3)
[2019-03-08] MEDS: SODIUM CHLORIDE 0.9% 1,000 ML IV SCH ×2 (08:45→12:46)
[2019-03-08] MEDS ORDERED: PANTOPRAZOLE 40 MG TABLET PO SCH (09:00)
[2019-03-08] MEDS ORDERED: HEPARIN LOCK FLUSH 500 UNIT/5 ML SYRINGE IV ONE (17:22)
[2019-03-08 17:26] VITALS: BP 126/71
== END 2019-03-08 17:45 | disposition home or self-care (01) ==
LOC: N.ED 10:01 → N.EDINP 10:01 → SUATTDRO 13:14 → N.4E 13:39
PROVIDERS: ADMIT Internal Medicine; ATTEND Internal Medicine

== ENCOUNTER 2019-04-26 09:01 | Observation (INO) ==
[2019-04-26] MEDS ORDERED: SODIUM CHLORIDE 0.9% 1,000 ML IV STA (12:02)
[2019-04-26 12:13] LABS: Basophils # 0.1 10*3/uL (0.0-0.2); Basophils % 1.1 % (0.0-0.8); Eosinophils # 0.1 10*3/uL (0.0-0.87); Eosinophils % 0.5 % (0.00-10.9); Hematocrit 29.2 VOL% (35.7-47.0); Hemoglobin 9.7 GM/DL (12.0-16.0); Immature Granulocytes % 0.5 %; Immature Granulocytes Absolute 0.05 #; Lymphocytes % 29.5 % (21.3-54.2); Mean Corpuscular HGB Conc 33.2 GM/DL (32-36); Mean Corpuscular Volume 87.2 FL (87-102); Mean Platelet Volume 9.4 FL (9.6-12.0); Monocytes % 6.4 % (1.7-12.7); NRBC # 0.04 10*3/uL; Platelet Count 693 T/CUMM (130-400); Red Blood Count 3.35 MC/CUMM (3.8-5.5); Red Cell Distribution Width 18.7 % (9.3-17.3); White Blood Count 10.1 T/CUMM (4-12)
[2019-04-26 12:14] LABS: Apearance,Urine CLEAR (Clear); Bilirubin,Urine Negative (Negative); Blood, Urine Negative (Negative); Glucose,Urine (UA) Negative (Negative); Ketones,Urine Negative (Negative); Mucus,Urine Few /LPF (Occasional); Nitrite,Urine Negative (Negative); Protein,Urine Negative; Squamous Epithelial Cell,Urine Occasional /HPF (0-10); Urine Color Yellow (Yellow); Urine Specific Gravity 1.013 (1.001-1.035); WBC,Urine 1 /HPF (0-6)
[2019-04-26 12:34] LABS: Alanine Aminotransferase 36 U/L (13-56); Alkaline Phosphatase 76 U/L (45-117); Aspartate Amino Transferase 33 U/L (0-37); Blood Urea Nitrogen 9 MG/DL (7-18); Estimated Glom Filtration Rate 141 ML/MIN; Glucose 94 MG/DL (74-106); Osmolality,Calculated 277.4 MOS/KG (273-304); Total Protein 9.9 G/DL (6.4-8.3)
[2019-04-26 12:42] LABS: Macrocytosis 1+; Platelet Estimate Increased; Target Cells Few
[2019-04-26 12:43] LABS: Anisocytosis 3+; Polychromasia Slight; Sickle Cells Few
[2019-04-26] MEDS ORDERED: diphenhydrAMINE 50 MG/1 ML VIAL IV STA (12:58)
[2019-04-26] MEDS ORDERED: HYDROmorphone 2 MG/1 ML VIAL IV STA (12:58)
[2019-04-26 13:10] LABS: Sedimentation Rate-Westergren 25 MM/HR (0-20)
[2019-04-26] MEDS ORDERED: SODIUM CHLORIDE 0.9% 600 ML IV STA (13:21)
[2019-04-26] MEDS ORDERED: oxyCODONE/ACETAMINOPHEN 5-325 MG TABLET PO PRN (15:09)
[2019-04-26] MEDS ORDERED: ACETAMINOPHEN 325 MG TABLET PO PRN (15:11)
[2019-04-26] MEDS ORDERED: ONDANSETRON 4 MG/2 ML VIAL IV PRN (15:11)
[2019-04-26] MEDS ORDERED: LEVOFLOXACIN INJ 500 MG in PREMIX 1 EACH IV ONE (15:13)
[2019-04-26] MEDS ORDERED: HYDROmorphone 2 MG/1 ML VIAL IV PRN (15:19)
[2019-04-26] MEDS ORDERED: LEVOFLOXACIN INJ 100 ML IV ONE (16:15)
[2019-04-26] MEDS ORDERED: diphenhydrAMINE 50 MG/1 ML VIAL IV PRN (17:31)
[2019-04-26] MEDS: SODIUM CHLORIDE 0.9% 1,000 ML IV SCH (17:58)
[2019-04-26] MEDS ORDERED: diphenhydrAMINE CAP 25 MG CAPSULE PO SCH (18:00)
[2019-04-26 18:54] LABS: Troponin I < 0.015 NG/ML (0.00-0.045)
[2019-04-26] MEDS ORDERED: Deferasirox [Jadenu] 360 MG PO SCH (21:00)
[2019-04-26] MEDS: HYDROXYUREA 500 MG CAPSULE PO SCH (21:52)
[2019-04-26] MEDS: FOLIC ACID 1 MG TABLET PO SCH (21:53)
[2019-04-26] MEDS: MONTELUKAST 10 MG TABLET PO SCH (21:53)
[2019-04-26] MEDS: HYDROmorphone 2 MG/1 ML VIAL IV PRN (21:54)
[2019-04-26] MEDS: diphenhydrAMINE 50 MG/1 ML VIAL IV PRN (21:56)
[2019-04-26] MEDS: ENOXAPARIN 40 MG/0.4 ML SYRINGE SUBCUT SCH (22:03)
[2019-04-27] MEDS: oxyCODONE/ACETAMINOPHEN 5-325 MG TABLET PO SCH ×3 (00:48→17:06)
[2019-04-27] MEDS: HYDROmorphone 2 MG/1 ML VIAL IV PRN ×7 (01:33→22:07)
[2019-04-27] MEDS: diphenhydrAMINE 50 MG/1 ML VIAL IV PRN ×7 (01:38→22:10)
[2019-04-27] MEDS: SODIUM CHLORIDE 0.9% 1,000 ML IV SCH (02:34)
[2019-04-27 06:23] LABS: Basophils # 0.1 10*3/uL (0.0-0.2); Basophils % 0.8 % (0.0-0.8); Eosinophils # 0.1 10*3/uL (0.0-0.87); Eosinophils % 1.1 % (0.00-10.9); Hematocrit 22.1 VOL% (35.7-47.0); Hemoglobin 7.4 GM/DL (12.0-16.0); Immature Granulocytes % 0.3 %; Immature Granulocytes Absolute 0.03 #; Lymphocytes # 3.5 10*3/uL (1.4-4.0); Lymphocytes % 32.4 % (21.3-54.2); Mean Corpuscular HGB Conc 33.5 GM/DL (32-36); Mean Platelet Volume 9.1 FL (9.6-12.0); Monocytes % 20.2 % (1.7-12.7); NRBC # 0.02 10*3/uL; Neutrophils % 45.2 % (38.7-73.9); Platelet Count 534 T/CUMM (130-400); Red Blood Count 2.54 MC/CUMM (3.8-5.5); Red Cell Distribution Width 17.9 % (9.3-17.3); White Blood Count 10.9 T/CUMM (4-12)
[2019-04-27] MEDS ORDERED: SODIUM CHLORIDE 0.9% 1,000 ML IV PRN (06:31)
[2019-04-27 06:37] LABS: Albumin 3.5 G/DL (3.4-5.0); Bilirubin,Total 2.1 MG/DL (0.2-1.0); Calcium 8.5 MG/DL (8.5-10.1); Total Protein 6.7 G/DL (6.4-8.3)
[2019-04-27 06:52] LABS: Eosinophils 2 % (0-10); Lymphocytes 33 % (20-55); Segmented Neutrophils 39 % (50-85); Total Cells Counted 100
[2019-04-27 06:53] LABS: Acanthocytes 2+; Anisocytosis 2+; Elliptocytes Few; Hypochromasia 1+; Macrocytosis 2+; Ovalocytes 1+; Pappenheimer Bodies 2+; Platelet Estimate Increased; Sickle Cells 2+; Target Cells 1+
[2019-04-27] MEDS ORDERED: MAGNESIUM SULF RIDER 2 GM in PREMIX 1 EACH IV ONE (10:21)
[2019-04-27] MEDS ORDERED: POTASSIUM CHLORIDE 20 MEQ PACK PO ONE (10:22)
[2019-04-27] MEDS ORDERED: oxyCODONE/ACETAMINOPHEN 5-325 MG TABLET PO ONE (10:37)
[2019-04-27] MEDS: PANTOPRAZOLE 40 MG TABLET PO SCH (10:44)
[2019-04-27 19:16] LABS: Hematocrit 29.5 VOL% (35.7-47.0); Hemoglobin 9.8 GM/DL (12.0-16.0)
[2019-04-27] MEDS: CARISOPRODOL 350 MG TABLET PO SCH (21:15)
[2019-04-27] MEDS: MONTELUKAST 10 MG TABLET PO SCH (21:15)
[2019-04-27] MEDS: FOLIC ACID 1 MG TABLET PO SCH (21:16)
[2019-04-27] MEDS: HYDROXYUREA 500 MG CAPSULE PO SCH (21:16)
[2019-04-27] MEDS: ENOXAPARIN 40 MG/0.4 ML SYRINGE SUBCUT SCH (21:19)
[2019-04-28] MEDS: HYDROmorphone 2 MG/1 ML VIAL IV PRN ×2 (02:08→06:27)
[2019-04-28] MEDS: diphenhydrAMINE 50 MG/1 ML VIAL IV PRN ×3 (02:10→10:25)
[2019-04-28 07:18] VITALS: BP 120/67
[2019-04-28] MEDS: oxyCODONE/ACETAMINOPHEN 5-325 MG TABLET PO SCH ×2 (07:35)
[2019-04-28] MEDS: PANTOPRAZOLE 40 MG TABLET PO SCH (09:38)
[2019-04-28] MEDS: CARISOPRODOL 350 MG TABLET PO SCH (09:38)
[2019-04-28] MEDS ORDERED: HYDROmorphone 2 MG/1 ML VIAL IV ONE (09:57)
== END 2019-04-28 12:39 | disposition home or self-care (01) ==
LOC: N.ED 09:01 → N.EDINP 09:01 → N.2W 17:09
PROVIDERS: ADMIT Internal Medicine; ATTEND Internal Medicine

== ENCOUNTER 2019-06-15 11:09 | Observation (INO) ==
[2019-06-15] MEDS ORDERED: HYDROmorphone 2 MG/1 ML VIAL IV STA ×2 (11:33→12:46)
[2019-06-15] MEDS ORDERED: SODIUM CHLORIDE 0.9% 1,000 ML IV STA (11:33)
[2019-06-15] MEDS ORDERED: ONDANSETRON 4 MG/2 ML VIAL IV STA ×2 (11:33→12:46)
[2019-06-15] MEDS ORDERED: diphenhydrAMINE 50 MG/1 ML VIAL IV STA ×2 (11:35→12:46)
[2019-06-15 12:15] LABS: Basophils # 0.1 10*3/uL (0.0-0.2); Basophils % 0.6 % (0.0-0.8); Eosinophils # 0.1 10*3/uL (0.0-0.87); Eosinophils % 1.6 % (0.00-10.9); Hematocrit 26.8 VOL% (35.7-47.0); Hemoglobin 8.9 GM/DL (12.0-16.0); Immature Granulocytes % 0.3 %; Immature Granulocytes Absolute 0.02 #; Lymphocytes # 3.1 10*3/uL (1.4-4.0); Lymphocytes % 38.3 % (21.3-54.2); Mean Corpuscular HGB Conc 33.2 GM/DL (32-36); Mean Corpuscular Volume 82.5 FL (87-102); Monocytes % 7.9 % (1.7-12.7); Neutrophils % 51.3 % (38.7-73.9); Platelet Count 419 T/CUMM (130-400); Red Blood Count 3.25 MC/CUMM (3.8-5.5); Red Cell Distribution Width 17.2 % (9.3-17.3)
[2019-06-15 12:34] LABS: Apearance,Urine CLEAR (Clear); Bilirubin,Urine Negative (Negative); Blood, Urine Negative (Negative); Glucose,Urine (UA) Negative (Negative); Ketones,Urine Negative (Negative); Mucus,Urine Occasional /LPF (Occasional); Nitrite,Urine Negative (Negative); Protein,Urine Negative; RBC,Urine 2 /HPF (0-4); Squamous Epithelial Cell,Urine Occasional /HPF (0-10); Urine Color Yellow (Yellow); WBC,Urine <1 /HPF (0-6)
[2019-06-15 12:35] LABS: Albumin 4.1 G/DL (3.4-5.0); Bilirubin,Total 1.9 MG/DL (0.2-1.0); Osmolality,Calculated 275.4 MOS/KG (273-304); Total Protein 7.8 G/DL (6.4-8.3)
[2019-06-15 12:45] LABS: Barbiturates Screen,Urine Negative (Negative); Benzodiazepines Screen,Urine Negative (Negative); Cannabinoid Screen,Urine Negative (Negative); Opiate Screen,Urine Positive (Negative); Phencyclidine Screen,Urine Negative (Negative)
[2019-06-15] MEDS ORDERED: BISACODYL 5 MG TABLET PO PRN (15:25)
[2019-06-15] MEDS ORDERED: traZODone 50 MG TABLET PO PRN (15:25)
[2019-06-15] MEDS ORDERED: PROMETHAZINE 25 MG/1 ML VIAL IM PRN (15:25)
[2019-06-15] MEDS ORDERED: ONDANSETRON 4 MG/2 ML VIAL IV PRN (15:25)
[2019-06-15] MEDS ORDERED: ALBUTEROL 2.5 MG/3 ML NEB RESP TX PRN (15:34)
[2019-06-15] MEDS: SODIUM CHLORIDE 0.9% 1,000 ML IV SCH (16:44)
[2019-06-15] MEDS: HYDROmorphone 2 MG/1 ML VIAL IV PRN ×3 (16:44→22:55)
[2019-06-15] MEDS: carisoprodoL 350 MG TABLET PO SCH (20:40)
[2019-06-15] MEDS: HYDROXYUREA 500 MG CAPSULE PO SCH (20:41)
[2019-06-15] MEDS: MONTELUKAST 10 MG TABLET PO SCH (20:41)
[2019-06-15] MEDS: DOCUSATE SODIUM 100 MG CAPSULE PO SCH (20:41)
[2019-06-16] MEDS: oxyCODONE/ACETAMINOPHEN 5-325 MG TABLET PO PRN ×3 (00:28→22:32)
[2019-06-16] MEDS: diphenhydrAMINE 50 MG/1 ML VIAL IV PRN ×2 (01:53→08:01)
[2019-06-16] MEDS: HYDROmorphone 2 MG/1 ML VIAL IV PRN ×7 (01:53→21:02)
[2019-06-16] MEDS: SODIUM CHLORIDE 0.9% 1,000 ML IV SCH ×3 (04:26→15:52)
[2019-06-16 05:37] LABS: Basophils # 0.1 10*3/uL (0.0-0.2); Basophils % 0.3 % (0.0-0.8); Eosinophils # 0.4 10*3/uL (0.0-0.87); Eosinophils % 2.5 % (0.00-10.9); Hemoglobin 7.3 GM/DL (12.0-16.0); Immature Granulocytes % 0.4 %; Immature Granulocytes Absolute 0.06 #; Lymphocytes # 3.6 10*3/uL (1.4-4.0); Lymphocytes % 24.2 % (21.3-54.2); Mean Corpuscular HGB Conc 33.2 GM/DL (32-36); Mean Corpuscular Volume 84.3 FL (87-102); Mean Platelet Volume 9.5 FL (9.6-12.0); Monocytes % 8.8 % (1.7-12.7); NRBC # 0.03 10*3/uL; Neutrophils % 63.8 % (38.7-73.9); Platelet Count 340 T/CUMM (130-400); Red Blood Count 2.61 MC/CUMM (3.8-5.5); Red Cell Distribution Width 17.5 % (9.3-17.3); White Blood Count 14.7 T/CUMM (4-12)
[2019-06-16] MEDS: PANTOPRAZOLE 40 MG TABLET PO SCH (08:53)
[2019-06-16] MEDS: DOCUSATE SODIUM 100 MG CAPSULE PO SCH ×2 (08:53→21:02)
[2019-06-16] MEDS: FOLIC ACID 1 MG TABLET PO SCH (08:53)
[2019-06-16] MEDS: carisoprodoL 350 MG TABLET PO SCH ×2 (08:53→21:02)
[2019-06-16] MEDS ORDERED: ACETAMINOPHEN 500 MG TABLET PO ONE (09:30)
[2019-06-16] MEDS ORDERED: diphenhydrAMINE CAP 25 MG CAPSULE PO ONE (09:30)
[2019-06-16] MEDS: LEVOFLOXACIN 750 MG TABLET PO SCH (10:21)
[2019-06-16] MEDS ORDERED: ENOXAPARIN 40 MG/0.4 ML SYRINGE SUBCUT SCH ×2 (11:00→21:00)
[2019-06-16] MEDS ORDERED: diphenhydrAMINE CAP 25 MG CAPSULE PO PRN (14:19)
[2019-06-16] MEDS: diphenhydrAMINE CAP 25 MG CAPSULE PO PRN (17:46)
[2019-06-16] MEDS: HYDROXYUREA 500 MG CAPSULE PO SCH (21:01)
[2019-06-16] MEDS: MONTELUKAST 10 MG TABLET PO SCH (21:02)
[2019-06-16] MEDS: APIXABAN 5 MG TABLET PO SCH (21:02)
[2019-06-17] MEDS: HYDROmorphone 2 MG/1 ML VIAL IV PRN ×6 (00:16→16:07)
[2019-06-17] MEDS: diphenhydrAMINE CAP 25 MG CAPSULE PO PRN ×3 (00:27→13:08)
[2019-06-17] MEDS: SODIUM CHLORIDE 0.9% 1,000 ML IV SCH ×3 (00:28→14:45)
[2019-06-17 06:05] LABS: Basophils % 0.3 % (0.0-0.8); Eosinophils # 0.3 10*3/uL (0.0-0.87); Eosinophils % 2.8 % (0.00-10.9); Hematocrit 22.9 VOL% (35.7-47.0); Hemoglobin 7.7 GM/DL (12.0-16.0); Immature Granulocytes % 0.3 %; Immature Granulocytes Absolute 0.04 #; Lymphocytes # 3.9 10*3/uL (1.4-4.0); Lymphocytes % 31.8 % (21.3-54.2); Mean Corpuscular HGB Conc 33.6 GM/DL (32-36); Mean Corpuscular Volume 84.8 FL (87-102); Mean Platelet Volume 10.1 FL (9.6-12.0); Monocytes % 11.7 % (1.7-12.7); NRBC # 0.02 10*3/uL; Neutrophils % 53.1 % (38.7-73.9); Platelet Count 355 T/CUMM (130-400); Red Cell Distribution Width 17.4 % (9.3-17.3); White Blood Count 12.3 T/CUMM (4-12)
[2019-06-17] MEDS: LEVOFLOXACIN 750 MG TABLET PO SCH (08:48)
[2019-06-17] MEDS: DOCUSATE SODIUM 100 MG CAPSULE PO SCH (08:48)
[2019-06-17] MEDS: APIXABAN 5 MG TABLET PO SCH (08:48)
[2019-06-17] MEDS: FOLIC ACID 1 MG TABLET PO SCH (08:48)
[2019-06-17] MEDS: carisoprodoL 350 MG TABLET PO SCH (08:48)
[2019-06-17] MEDS: PANTOPRAZOLE 40 MG TABLET PO SCH (08:48)
[2019-06-17] MEDS: oxyCODONE/ACETAMINOPHEN 5-325 MG TABLET PO PRN ×2 (08:49→14:42)
[2019-06-17] MEDS ORDERED: HEPARIN LOCK FLUSH 500 UNIT/5 ML SYRINGE IV ONE ×2 (16:31→16:38)
[2019-06-17 17:01] VITALS: BP 109/56
== END 2019-06-17 17:41 | disposition home or self-care (01) ==
LOC: N.EDINP 11:09 → N.ED 11:09 → SUATTDRO 15:25 → N.4E 17:05
PROVIDERS: ADMIT Family Medicine; ATTEND Internal Medicine

== ENCOUNTER 2019-08-11 14:11 | Inpatient (IN) ==
[2019-08-11] MEDS ORDERED: SODIUM CHLORIDE 0.9% 1,000 ML IV STA (14:46)
[2019-08-11] MEDS ORDERED: ACETAMINOPHEN 500 MG TABLET PO STA (14:46)
[2019-08-11] MEDS ORDERED: ONDANSETRON 4 MG/2 ML VIAL IV STA (14:47)
[2019-08-11] MEDS ORDERED: diphenhydrAMINE 50 MG/1 ML VIAL IV STA ×2 (14:47→16:57)
[2019-08-11] MEDS ORDERED: HYDROmorphone 2 MG/1 ML VIAL IV STA ×3 (14:47→17:40)
[2019-08-11 15:29] LABS: Apearance,Urine CLEAR (Clear); Bilirubin,Urine Negative (Negative); Blood, Urine Negative (Negative); Glucose,Urine (UA) Negative (Negative); Hyaline Casts,Urine 1 /LPF (0-3); Ketones,Urine Negative (Negative); Mucus,Urine Occasional /LPF (Occasional); Nitrite,Urine Negative (Negative); Protein,Urine Negative; RBC,Urine 1 /HPF (0-4); Squamous Epithelial Cell,Urine Occasional /HPF (0-10); Urine Color Yellow (Yellow); Urine Specific Gravity 1.009 (1.001-1.035); WBC,Urine <1 /HPF (0-6)
[2019-08-11 16:08] LABS: Basophils # 0.1 10*3/uL (0.0-0.2); Basophils % 0.5 % (0.0-0.8); Eosinophils # 0.1 10*3/uL (0.0-0.87); Eosinophils % 0.4 % (0.00-10.9); Hematocrit 27.3 VOL% (35.7-47.0); Hemoglobin 8.7 GM/DL (12.0-16.0); Immature Granulocytes % 0.5 %; Immature Granulocytes Absolute 0.06 #; Lymphocytes # 2.4 10*3/uL (1.4-4.0); Lymphocytes % 20.3 % (21.3-54.2); Mean Corpuscular HGB Conc 31.9 GM/DL (32-36); Mean Corpuscular Volume 90.1 FL (87-102); Mean Platelet Volume 8.8 FL (9.6-12.0); Monocytes % 6.9 % (1.7-12.7); NRBC # 0.02 10*3/uL; Neutrophils % 71.4 % (38.7-73.9); Platelet Count 584 T/CUMM (130-400); Red Blood Count 3.03 MC/CUMM (3.8-5.5); Red Cell Distribution Width 16.5 % (9.3-17.3); White Blood Count 11.9 T/CUMM (4-12)
[2019-08-11] MEDS ORDERED: cefTRIAXone 1,000 MG VIAL ONE (16:15)
[2019-08-11] MEDS ORDERED: LEVOFLOXACIN INJ 500 MG in PREMIX 1 EACH IV STA (16:21)
[2019-08-11 16:30] LABS: Albumin 4.1 G/DL (3.4-5.0); Bilirubin,Total 1.7 MG/DL (0.2-1.0); Calcium 9.7 MG/DL (8.5-10.1); Osmolality,Calculated 274.4 MOS/KG (273-304)
[2019-08-11] MEDS ORDERED: SODIUM CHLORIDE 0.9% 1,000 ML IV PRN (17:04)
[2019-08-11] MEDS ORDERED: NALOXONE 0.4 MG/ML VIAL IV PRN (17:04)
[2019-08-11] MEDS ORDERED: HYDROmorphone PCA 30 MG/30 ML SYRINGE IV SCH (17:30)
[2019-08-11] MEDS ORDERED: INFLUENZA VIRUS VACCINE 0.5 ML SYRINGE IM ONE (19:15)
[2019-08-11] MEDS: diphenhydrAMINE CAP 25 MG CAPSULE PO PRN (23:17)
[2019-08-11] MEDS: HYDROXYUREA 500 MG CAPSULE PO SCH (23:17)
[2019-08-11] MEDS: MONTELUKAST 10 MG TABLET PO SCH (23:17)
[2019-08-11] MEDS: FOLIC ACID 1 MG TABLET PO SCH (23:17)
[2019-08-12] MEDS: APIXABAN 5 MG TABLET PO SCH ×3 (03:30→21:25)
[2019-08-12 06:14] LABS: Basophils # 0.1 10*3/uL (0.0-0.2); Basophils % 0.4 % (0.0-0.8); Eosinophils # 0.1 10*3/uL (0.0-0.87); Eosinophils % 0.6 % (0.00-10.9); Hematocrit 23.5 VOL% (35.7-47.0); Hemoglobin 7.4 GM/DL (12.0-16.0); Immature Granulocytes % 0.4 %; Immature Granulocytes Absolute 0.05 #; Lymphocytes # 2.1 10*3/uL (1.4-4.0); Lymphocytes % 18.3 % (21.3-54.2); Mean Corpuscular HGB Conc 31.5 GM/DL (32-36); Mean Corpuscular Volume 91.1 FL (87-102); Mean Platelet Volume 9.3 FL (9.6-12.0); Monocytes % 9.2 % (1.7-12.7); Neutrophils % 71.1 % (38.7-73.9); Platelet Count 532 T/CUMM (130-400); Red Blood Count 2.58 MC/CUMM (3.8-5.5); Red Cell Distribution Width 16.5 % (9.3-17.3); White Blood Count 11.6 T/CUMM (4-12)
[2019-08-12 06:34] LABS: Anisocytosis 1+; Hypochromasia 1+; Microcytosis 1+; Target Cells Few
[2019-08-12 06:35] LABS: Pappenheimer Bodies Few
[2019-08-12 06:36] LABS: Howell-Jolly Bodies Slight; Sickle Cells Few
[2019-08-12 06:37] LABS: Platelet Estimate Increased
[2019-08-12 06:40] LABS: Osmolality,Calculated 277.3 MOS/KG (273-304)
[2019-08-12] MEDS ORDERED: SODIUM CHLORIDE 0.9% 1,000 ML IV PRN ×2 (09:37→14:06)
[2019-08-12] MEDS: diphenhydrAMINE CAP 25 MG CAPSULE PO PRN ×2 (09:47→18:10)
[2019-08-12] MEDS ORDERED: POTASSIUM CHLORIDE 20 MEQ TABLET PO ONE (10:00)
[2019-08-12] MEDS ORDERED: oxyCODONE/ACETAMINOPHEN 5-325 MG TABLET PO ONE (18:20)
[2019-08-12] MEDS ORDERED: oxyCODONE/ACETAMINOPHEN 5-325 MG TABLET ONE (18:25)
[2019-08-12] MEDS: HYDROmorphone PCA 30 MG/30 ML SYRINGE IV SCH (18:28)
[2019-08-12 19:18] LABS: Troponin I < 0.015 NG/ML (0.00-0.045)
[2019-08-12 19:29] LABS: Apearance,Urine CLEAR (Clear); Bilirubin,Urine Negative (Negative); Blood, Urine Moderate mg/dL (Negative); Glucose,Urine (UA) Negative (Negative); Ketones,Urine Negative (Negative); Mucus,Urine Occasional /LPF (Occasional); Nitrite,Urine Negative (Negative); Protein,Urine Negative; RBC,Urine <1 /HPF (0-4); Squamous Epithelial Cell,Urine Occasional /HPF (0-10); Urine Color Yellow (Yellow); WBC,Urine 1 /HPF (0-6)
[2019-08-12] MEDS ORDERED: ACETAMINOPHEN 325 MG TABLET PO ONE (20:44)
[2019-08-12] MEDS ORDERED: methylPREDNISolone SOD SUC 40 MG/1 ML VIAL IV ONE (20:44)
[2019-08-12] MEDS: HYDROXYUREA 500 MG CAPSULE PO SCH (21:25)
[2019-08-12] MEDS: MONTELUKAST 10 MG TABLET PO SCH (21:26)
[2019-08-12] MEDS: FOLIC ACID 1 MG TABLET PO SCH (21:26)
[2019-08-12] MEDS: diphenhydrAMINE 50 MG/1 ML VIAL IV PRN (22:32)
[2019-08-13 06:31] LABS: Basophils % 0.2 % (0.0-0.8); Hematocrit 28.2 VOL% (35.7-47.0); Hemoglobin 9.1 GM/DL (12.0-16.0); Immature Granulocytes % 0.5 %; Immature Granulocytes Absolute 0.05 #; Lymphocytes % 8.9 % (21.3-54.2); Mean Corpuscular HGB Conc 32.3 GM/DL (32-36); Mean Platelet Volume 9.7 FL (9.6-12.0); Monocytes % 0.6 % (1.7-12.7); Neutrophils % 89.8 % (38.7-73.9); Platelet Count 460 T/CUMM (130-400); Red Cell Distribution Width 16.6 % (9.3-17.3); White Blood Count 10.9 T/CUMM (4-12)
[2019-08-13 07:46] LABS: Eosinophils 1 % (0-10); Hypochromasia 1+; Lymphocytes 9 % (20-55); Segmented Neutrophils 89 % (50-85); Total Cells Counted 100
[2019-08-13 07:47] LABS: Microcytosis 1+
[2019-08-13 07:48] LABS: Anisocytosis 1+; Pappenheimer Bodies Few; Polychromasia Few; Target Cells Few
[2019-08-13 07:49] LABS: Sickle Cells Slight
[2019-08-13 07:50] LABS: Ovalocytes Slight
[2019-08-13] MEDS: APIXABAN 5 MG TABLET PO SCH ×2 (09:54→20:35)
[2019-08-13] MEDS: diphenhydrAMINE 50 MG/1 ML VIAL IV PRN ×2 (09:58→20:47)
[2019-08-13] MEDS ORDERED: FUROSEMIDE 40 MG/4 ML VIAL IV ONE (13:32)
[2019-08-13] MEDS ORDERED: FUROSEMIDE 40 MG/4 ML VIAL IV SCH (16:00)
[2019-08-13] MEDS ORDERED: ONDANSETRON 4 MG/2 ML VIAL IV PRN (17:13)
[2019-08-13] MEDS: HYDROXYUREA 500 MG CAPSULE PO SCH (20:35)
[2019-08-13] MEDS: MONTELUKAST 10 MG TABLET PO SCH (20:36)
[2019-08-13] MEDS: FOLIC ACID 1 MG TABLET PO SCH (20:36)
[2019-08-14] MEDS: diphenhydrAMINE 50 MG/1 ML VIAL IV PRN ×2 (02:48→09:14)
[2019-08-14] MEDS: HYDROmorphone PCA 30 MG/30 ML SYRINGE IV SCH (06:05)
[2019-08-14 06:34] LABS: Basophils # 0.1 10*3/uL (0.0-0.2); Basophils % 0.6 % (0.0-0.8); Eosinophils # 0.2 10*3/uL (0.0-0.87); Eosinophils % 1.6 % (0.00-10.9); Hematocrit 28.9 VOL% (35.7-47.0); Hemoglobin 9.1 GM/DL (12.0-16.0); Immature Granulocytes % 0.3 %; Immature Granulocytes Absolute 0.03 #; Lymphocytes # 5.3 10*3/uL (1.4-4.0); Lymphocytes % 50.5 % (21.3-54.2); Mean Corpuscular HGB Conc 31.5 GM/DL (32-36); Mean Corpuscular Volume 90.9 FL (87-102); Mean Platelet Volume 9.2 FL (9.6-12.0); Monocytes % 12.6 % (1.7-12.7); Neutrophils % 34.4 % (38.7-73.9); Platelet Count 521 T/CUMM (130-400); Red Blood Count 3.18 MC/CUMM (3.8-5.5); Red Cell Distribution Width 16.3 % (9.3-17.3); White Blood Count 10.6 T/CUMM (4-12)
[2019-08-14 06:49] LABS: Calcium 9.5 MG/DL (8.5-10.1); Osmolality,Calculated 275.5 MOS/KG (273-304)
[2019-08-14 07:00] LABS: Anisocytosis 1+; Eosinophils 4 % (0-10); Lymphocytes 50 % (20-55); Macrocytosis 1+; Platelet Estimate Increased; Poikilocytosis Slight; Segmented Neutrophils 36 % (50-85); Target Cells Few; Total Cells Counted 100
[2019-08-14] MEDS: APIXABAN 5 MG TABLET PO SCH (09:15)
[2019-08-14] MEDS ORDERED: POTASSIUM CHLORIDE 20 MEQ/15 ML UDCUP PO ONE (09:16)
[2019-08-14 13:41] VITALS: BP 101/62
== END 2019-08-14 14:37 | disposition home or self-care (01) | DRG 812 ==
LOC: N.ED 14:11 → N.EDINP 17:59 → SUATTDRO 17:59 → N.5E 18:06
PROVIDERS: ADMIT Emergency Medicine; ATTEND Internal Medicine

== ENCOUNTER 2019-09-15 14:31 | Observation (INO) ==
[2019-09-15] MEDS ORDERED: HYDROmorphone 2 MG/1 ML VIAL IV STA (15:03)
[2019-09-15] MEDS ORDERED: ONDANSETRON 4 MG/2 ML VIAL IV STA (15:03)
[2019-09-15 15:17] LABS: Basophils # 0.1 10*3/uL (0.0-0.2); Basophils % 0.5 % (0.0-0.8); Eosinophils # 0.1 10*3/uL (0.0-0.87); Eosinophils % 0.6 % (0.00-10.9); Hematocrit 24.5 VOL% (35.7-47.0); Hemoglobin 8.2 GM/DL (12.0-16.0); Immature Granulocytes % 0.6 %; Immature Granulocytes Absolute 0.07 #; Lymphocytes # 4.1 10*3/uL (1.4-4.0); Lymphocytes % 32.9 % (21.3-54.2); Mean Corpuscular HGB Conc 33.5 GM/DL (32-36); Mean Corpuscular Volume 87.5 FL (87-102); Mean Platelet Volume 9.4 FL (9.6-12.0); Monocytes % 10.4 % (1.7-12.7); NRBC # 0.29 10*3/uL; Platelet Count 557 T/CUMM (130-400); Red Cell Distribution Width 20.1 % (9.3-17.3); White Blood Count 12.4 T/CUMM (4-12)
[2019-09-15 15:37] LABS: Albumin 4.2 G/DL (3.4-5.0); Bilirubin,Total 2.6 MG/DL (0.2-1.0); Calcium 9.4 MG/DL (8.5-10.1); Osmolality,Calculated 270.8 MOS/KG (273-304); Total Protein 8.3 G/DL (6.4-8.3)
[2019-09-15 15:43] LABS: INR 1.1; PT Patient Result 11.4 SECS (9.8-11.9); Partial Thromboplastin Time 25.6 SECS (23.9-33.8)
[2019-09-15 15:49] LABS: Eosinophils 1 % (0-10); Lymphocytes 32 % (20-55); Segmented Neutrophils 54 % (50-85); Total Cells Counted 100
[2019-09-15 15:50] LABS: Reactive Lymphocytes 2+
[2019-09-15] MEDS ORDERED: diphenhydrAMINE 50 MG/1 ML VIAL IV STA (15:53)
[2019-09-15 15:54] LABS: Sickle Cells Few
[2019-09-15 15:55] LABS: Basophilic Stippling Slight; Howell-Jolly Bodies Few; Polychromasia 2+
[2019-09-15 15:56] LABS: Platelet Estimate Increased
[2019-09-15 15:57] LABS: Anisocytosis 2+; Hypochromasia 2+; Microcytosis Slight; Poikilocytosis 1+
[2019-09-15 15:58] LABS: Ovalocytes Few
[2019-09-15] MEDS ORDERED: NALOXONE 0.4 MG/ML VIAL IV PRN (16:52)
[2019-09-15] MEDS ORDERED: SODIUM CHLORIDE 0.9% 1,000 ML IV PRN ×2 (16:52→16:54)
[2019-09-15] MEDS ORDERED: ONDANSETRON 4 MG/2 ML VIAL IV PRN (16:56)
[2019-09-15 17:01] LABS: Apearance,Urine CLEAR (Clear); Bilirubin,Urine Negative (Negative); Blood, Urine Moderate mg/dL (Negative); Glucose,Urine (UA) Negative (Negative); Ketones,Urine Negative (Negative); Mucus,Urine Occasional /LPF (Occasional); Nitrite,Urine Negative (Negative); Protein,Urine Negative; RBC,Urine 1 /HPF (0-4); Squamous Epithelial Cell,Urine Occasional /HPF (0-10); Urine Color Yellow (Yellow); Urine Specific Gravity 1.011 (1.001-1.035); WBC,Urine 2 /HPF (0-6)
[2019-09-15 17:04] LABS: Barbiturates Screen,Urine Negative (Negative); Benzodiazepines Screen,Urine Negative (Negative); Cannabinoid Screen,Urine Negative (Negative); Opiate Screen,Urine Positive (Negative); Phencyclidine Screen,Urine Negative (Negative)
[2019-09-15] MEDS: SODIUM CHLOR 0.45% KCL 20 MEQ 20 MEQ/1,000 ML BAG IV SCH (19:48)
[2019-09-15] MEDS ORDERED: HYDROmorphone PCA 30 MG/30 ML SYRINGE IV SCH (20:00)
[2019-09-15] MEDS ORDERED: ACETAMINOPHEN 325 MG TABLET PO ONE (20:28)
[2019-09-15] MEDS ORDERED: diphenhydrAMINE 50 MG/1 ML VIAL IV ONE (20:28)
[2019-09-15] MEDS ORDERED: methylPREDNISolone SOD SUC 40 MG/1 ML VIAL IV ONE (20:28)
[2019-09-15] MEDS: HYDROXYUREA 500 MG CAPSULE PO SCH (21:02)
[2019-09-15] MEDS: FOLIC ACID 1 MG TABLET PO SCH (21:03)
[2019-09-15] MEDS: APIXABAN 5 MG TABLET PO SCH (21:03)
[2019-09-15] MEDS: MONTELUKAST 10 MG TABLET PO SCH (21:03)
[2019-09-15] MEDS: NON-FORMULARY MEDICATION (Deferasirox [Jadenu] 360 MG) PO SCH (21:03)
[2019-09-16 06:09] LABS: Basophils % 0.2 % (0.0-0.8); Hematocrit 28.8 VOL% (35.7-47.0); Hemoglobin 9.3 GM/DL (12.0-16.0); Immature Granulocytes % 0.5 %; Immature Granulocytes Absolute 0.07 #; Lymphocytes # 1.5 10*3/uL (1.4-4.0); Lymphocytes % 10.1 % (21.3-54.2); Mean Corpuscular HGB Conc 32.3 GM/DL (32-36); Mean Corpuscular Volume 90.3 FL (87-102); Mean Platelet Volume 9.4 FL (9.6-12.0); NRBC # 0.33 10*3/uL; Neutrophils % 88.2 % (38.7-73.9); Platelet Count 527 T/CUMM (130-400); Red Blood Count 3.19 MC/CUMM (3.8-5.5); Red Cell Distribution Width 18.9 % (9.3-17.3); White Blood Count 14.6 T/CUMM (4-12)
[2019-09-16] MEDS: SODIUM CHLOR 0.45% KCL 20 MEQ 20 MEQ/1,000 ML BAG IV SCH ×2 (06:24→15:54)
[2019-09-16 06:33] LABS: Albumin 4.1 G/DL (3.4-5.0); Bilirubin,Total 2.2 MG/DL (0.2-1.0); Calcium 9.3 MG/DL (8.5-10.1); Osmolality,Calculated 272.8 MOS/KG (273-304); Total Protein 8.1 G/DL (6.4-8.3)
[2019-09-16 06:46] LABS: Band Neutrophils 1 % (0-10); Hypochromasia 1+; Lymphocytes 9 % (20-55); Macrocytosis Slight; Nucleated Red Blood Cells 4 (0-5); Pappenheimer Bodies Slight; Platelet Estimate Adequate; Polychromasia Slight; Segmented Neutrophils 89 % (50-85); Sickle Cells Few; Target Cells Few; Total Cells Counted 100
[2019-09-16 06:47] LABS: Howell-Jolly Bodies Slight
[2019-09-16] MEDS ORDERED: oxyCODONE IR 5 MG TABLET PO PRN (08:00)
[2019-09-16] MEDS: PANTOPRAZOLE 40 MG TABLET PO SCH (08:20)
[2019-09-16] MEDS: APIXABAN 5 MG TABLET PO SCH ×2 (08:21→21:20)
[2019-09-16] MEDS: oxyCODONE IR 5 MG TABLET PO PRN ×2 (10:44→21:28)
[2019-09-16] MEDS: LEVOFLOXACIN 500 MG TABLET PO SCH (10:44)
[2019-09-16] MEDS ORDERED: NALOXONE 0.4 MG/ML VIAL IV PRN (12:13)
[2019-09-16] MEDS ORDERED: HYDROmorphone PCA 30 MG/30 ML SYRINGE IV SCH ×2 (12:30→20:00)
[2019-09-16] MEDS: NON-FORMULARY MEDICATION (Deferasirox [Jadenu] 360 MG) PO SCH (21:20)
[2019-09-16] MEDS: FOLIC ACID 1 MG TABLET PO SCH (21:20)
[2019-09-16] MEDS: HYDROXYUREA 500 MG CAPSULE PO SCH (21:20)
[2019-09-16] MEDS: MONTELUKAST 10 MG TABLET PO SCH (21:20)
[2019-09-17] MEDS: oxyCODONE IR 5 MG TABLET PO PRN (04:07)
[2019-09-17 06:44] LABS: Basophils # 0.1 10*3/uL (0.0-0.2); Basophils % 0.8 % (0.0-0.8); Eosinophils # 0.2 10*3/uL (0.0-0.87); Eosinophils % 1.7 % (0.00-10.9); Hematocrit 28.6 VOL% (35.7-47.0); Hemoglobin 9.1 GM/DL (12.0-16.0); Immature Granulocytes % 0.4 %; Immature Granulocytes Absolute 0.04 #; Lymphocytes # 3.1 10*3/uL (1.4-4.0); Lymphocytes % 34.9 % (21.3-54.2); Mean Corpuscular HGB Conc 31.8 GM/DL (32-36); Mean Corpuscular Volume 91.1 FL (87-102); Mean Platelet Volume 9.6 FL (9.6-12.0); Monocytes % 17.5 % (1.7-12.7); NRBC # 0.35 10*3/uL; Neutrophils % 44.7 % (38.7-73.9); Platelet Count 507 T/CUMM (130-400); Red Blood Count 3.14 MC/CUMM (3.8-5.5); Red Cell Distribution Width 19.9 % (9.3-17.3); White Blood Count 8.9 T/CUMM (4-12)
[2019-09-17 07:06] LABS: Albumin 3.7 G/DL (3.4-5.0); Bilirubin,Total 2.8 MG/DL (0.2-1.0); Calcium 9.2 MG/DL (8.5-10.1); Osmolality,Calculated 272.7 MOS/KG (273-304); Total Protein 7.5 G/DL (6.4-8.3)
[2019-09-17 07:11] LABS: Eosinophils 2 % (0-10); Howell-Jolly Bodies Few; Hypochromasia 1+; Lymphocytes 47 % (20-55); Nucleated Red Blood Cells 2 (0-5); Platelet Estimate Adequate; Segmented Neutrophils 36 % (50-85); Total Cells Counted 100
[2019-09-17 07:12] LABS: Macrocytosis Slight; Pappenheimer Bodies Few; Polychromasia Slight; Sickle Cells Few
[2019-09-17] MEDS: APIXABAN 5 MG TABLET PO SCH (08:06)
[2019-09-17] MEDS: LEVOFLOXACIN 500 MG TABLET PO SCH (08:07)
[2019-09-17] MEDS: PANTOPRAZOLE 40 MG TABLET PO SCH (08:07)
[2019-09-17 09:35] VITALS: BP 101/53
== END 2019-09-17 09:33 | disposition home or self-care (01) ==
LOC: EDUNIT# → EDBD → N.EDINP 14:31 → N.ED 14:31 → SUATTDRO 16:56 → N.EDINP 18:27 → N.TELEN 18:33
PROVIDERS: ADMIT Internal Medicine; ATTEND Internal Medicine

== ENCOUNTER 2019-12-23 13:02 | Inpatient (IN) ==
[2019-12-23] MEDS ORDERED: SODIUM CHLORIDE 0.9% 1,000 ML IV STA ×2 (13:38→15:10)
[2019-12-23] MEDS ORDERED: diphenhydrAMINE CAP 50 MG CAPSULE PO STA (15:10)
[2019-12-23] MEDS ORDERED: HYDROmorphone 2 MG/1 ML VIAL IV STA (15:10)
[2019-12-23] MEDS ORDERED: ONDANSETRON 4 MG/2 ML VIAL IV STA (15:10)
[2019-12-23 16:21] LABS: Basophils # 0.1 10*3/uL (0.0-0.2); Basophils % 0.7 % (0.0-0.8); Eosinophils # 0.2 10*3/uL (0.0-0.87); Eosinophils % 1.8 % (0.00-10.9); Hematocrit 21.7 VOL% (35.7-47.0); Hemoglobin 7.1 GM/DL (12.0-16.0); Immature Granulocytes % 0.5 %; Immature Granulocytes Absolute 0.06 #; Lymphocytes # 4.9 10*3/uL (1.4-4.0); Mean Corpuscular HGB Conc 32.7 GM/DL (32-36); Mean Platelet Volume 9.5 FL (9.6-12.0); Monocytes % 15.1 % (1.7-12.7); NRBC # 0.12 10*3/uL; Neutrophils % 40.9 % (38.7-73.9); Platelet Count 461 T/CUMM (130-400); Red Blood Count 2.41 MC/CUMM (3.8-5.5); Red Cell Distribution Width 19.4 % (9.3-17.3)
[2019-12-23 16:37] LABS: Apearance,Urine CLEAR (Clear); Bilirubin,Urine Negative (Negative); Blood, Urine Negative (Negative); Glucose,Urine (UA) Negative (Negative); Ketones,Urine Negative (Negative); Mucus,Urine Occasional /LPF (Occasional); Nitrite,Urine Negative (Negative); Protein,Urine Negative; RBC,Urine 1 /HPF (0-4); Squamous Epithelial Cell,Urine Occasional /HPF (0-10); Urine Color Yellow (Yellow); Urine Specific Gravity 1.009 (1.001-1.035); Urine Urobilinogen < 2.0 EU/DL (0.2-1.0); WBC,Urine 1 /HPF (0-6)
[2019-12-23 16:43] LABS: Albumin 3.8 G/DL (3.4-5.0); Calcium 8.6 MG/DL (8.5-10.1); Osmolality,Calculated 272.5 MOS/KG (273-304); Total Protein 7.5 G/DL (6.4-8.3)
[2019-12-23 16:53] LABS: Eosinophils 2 % (0-10); Lymphocytes 49 % (20-55); Nucleated Red Blood Cells 2 (0-5); Platelet Estimate Increased; Segmented Neutrophils 36 % (50-85); Total Cells Counted 100
[2019-12-23 16:54] LABS: Howell-Jolly Bodies Few; Hypochromasia Slight; Ovalocytes Few; Polychromasia Few; Sickle Cells Slight; Target Cells Few
[2019-12-23 16:55] LABS: Microcytosis 1+; Stomatocytes Few
[2019-12-23] MEDS ORDERED: SODIUM CHLORIDE 0.9% 1,000 ML IV PRN ×2 (17:01→17:03)
[2019-12-23] MEDS ORDERED: NALOXONE 0.4 MG/ML VIAL IV PRN (17:01)
[2019-12-23] MEDS ORDERED: ACETAMINOPHEN 325 MG TABLET PO SCH (17:30)
[2019-12-23] MEDS ORDERED: HYDROmorphone PCA 30 MG/30 ML SYRINGE IV SCH (17:30)
[2019-12-23] MEDS ORDERED: ALBUTEROL/IPRATROPIUM 3 ML NEB RESP TX PRN (17:46)
[2019-12-23] MEDS: SODIUM CHLORIDE 0.9% 1,000 ML IV SCH (18:40)
[2019-12-23] MEDS: diphenhydrAMINE 50 MG/1 ML VIAL IV SCH (18:45)
[2019-12-23] MEDS: NON-FORMULARY MEDICATION (Deferasirox [Jadenu] 360 MG) PO SCH (21:32)
[2019-12-23] MEDS: MONTELUKAST 10 MG TABLET PO SCH (21:33)
[2019-12-23] MEDS: APIXABAN 5 MG TABLET PO SCH (21:33)
[2019-12-23] MEDS: HYDROXYUREA 500 MG CAPSULE PO SCH (22:08)
[2019-12-24] MEDS: diphenhydrAMINE 50 MG/1 ML VIAL IV SCH ×5 (00:39→23:12)
[2019-12-24 06:11] LABS: Hematocrit 18.9 VOL% (35.7-47.0)
[2019-12-24 06:13] LABS: Basophils # 0.1 10*3/uL (0.0-0.2); Basophils % 0.7 % (0.0-0.8); Eosinophils # 0.3 10*3/uL (0.0-0.87); Eosinophils % 2.8 % (0.00-10.9); Immature Granulocytes % 0.4 %; Immature Granulocytes Absolute 0.04 #; Lymphocytes # 4.4 10*3/uL (1.4-4.0); Lymphocytes % 44.9 % (21.3-54.2); Mean Corpuscular HGB Conc 32.8 GM/DL (32-36); Mean Platelet Volume 9.1 FL (9.6-12.0); Monocytes % 16.6 % (1.7-12.7); NRBC # 0.16 10*3/uL; Neutrophils % 34.6 % (38.7-73.9); Platelet Count 388 T/CUMM (130-400); Red Cell Distribution Width 19.7 % (9.3-17.3); White Blood Count 9.8 T/CUMM (4-12)
[2019-12-24 06:18] LABS: Hemoglobin 6.1 GM/DL (12.0-16.0)
[2019-12-24 06:25] LABS: Hemoglobin 5.9 GM/DL (12.0-16.0)
[2019-12-24 06:30] LABS: Albumin 3.2 G/DL (3.4-5.0); Bilirubin,Total 1.5 MG/DL (0.2-1.0); Osmolality,Calculated 276.3 MOS/KG (273-304); Total Protein 6.2 G/DL (6.4-8.3)
[2019-12-24 07:28] LABS: Band Neutrophils 2 % (0-10); Eosinophils 2 % (0-10); Lymphocytes 40 % (20-55); Nucleated Red Blood Cells 3 (0-5); Platelet Estimate Normal; Segmented Neutrophils 37 % (50-85); Sickle Cells 1+; Total Cells Counted 100
[2019-12-24 07:29] LABS: Anisocytosis 3+; Basophilic Stippling Slight; Howell-Jolly Bodies Few; Poikilocytosis 1+
[2019-12-24] MEDS: FOLIC ACID 1 MG TABLET PO SCH (09:01)
[2019-12-24] MEDS: APIXABAN 5 MG TABLET PO SCH ×2 (09:01→21:44)
[2019-12-24] MEDS: SODIUM CHLORIDE 0.9% 1,000 ML IV SCH ×2 (09:54→14:29)
[2019-12-24] MEDS: HYDROmorphone PCA 30 MG/30 ML SYRINGE IV SCH (18:06)
[2019-12-24] MEDS ORDERED: CETIRIZINE 10 MG TABLET PO PRN (18:32)
[2019-12-24] MEDS: NON-FORMULARY MEDICATION (Deferasirox [Jadenu] 360 MG) PO SCH (21:43)
[2019-12-24] MEDS: HYDROXYUREA 500 MG CAPSULE PO SCH (21:44)
[2019-12-24] MEDS: MONTELUKAST 10 MG TABLET PO SCH (21:44)
[2019-12-24 22:36] LABS: Hematocrit 28.6 VOL% (35.7-47.0)
[2019-12-24 22:38] LABS: Hemoglobin 9.4 GM/DL (12.0-16.0)
[2019-12-25 04:32] LABS: Basophils # 0.1 10*3/uL (0.0-0.2); Basophils % 0.7 % (0.0-0.8); Eosinophils # 0.4 10*3/uL (0.0-0.87); Eosinophils % 3.8 % (0.00-10.9); Hematocrit 27.9 VOL% (35.7-47.0); Hemoglobin 9.4 GM/DL (12.0-16.0); Immature Granulocytes % 0.5 %; Immature Granulocytes Absolute 0.05 #; Lymphocytes # 3.6 10*3/uL (1.4-4.0); Lymphocytes % 35.6 % (21.3-54.2); Mean Corpuscular HGB Conc 33.7 GM/DL (32-36); Mean Corpuscular Volume 89.7 FL (87-102); Monocytes % 15.9 % (1.7-12.7); Neutrophils % 43.5 % (38.7-73.9); Platelet Count 413 T/CUMM (130-400); Red Blood Count 3.11 MC/CUMM (3.8-5.5); Red Cell Distribution Width 18.1 % (9.3-17.3)
[2019-12-25 05:05] LABS: Albumin 3.5 G/DL (3.4-5.0); Calcium 8.5 MG/DL (8.5-10.1); Osmolality,Calculated 273.5 MOS/KG (273-304); Total Protein 6.9 G/DL (6.4-8.3)
[2019-12-25 05:22] LABS: Eosinophils 6 % (0-10); Howell-Jolly Bodies Few; Hypochromasia 1+; Lymphocytes 38 % (20-55); Macrocytosis 1+; Nucleated Red Blood Cells 2 (0-5); Ovalocytes Slight; Pappenheimer Bodies Few; Platelet Estimate Adequate; Polychromasia Slight; Segmented Neutrophils 40 % (50-85); Sickle Cells Few; Total Cells Counted 100
[2019-12-25] MEDS: diphenhydrAMINE 50 MG/1 ML VIAL IV SCH ×4 (05:48→23:21)
[2019-12-25] MEDS ORDERED: SODIUM CHLORIDE 0.9% 1,000 ML IV PRN (08:01)
[2019-12-25 08:17] LABS: Barbiturates Screen,Urine Negative (Negative); Benzodiazepines Screen,Urine Negative (Negative); Cannabinoid Screen,Urine Negative (Negative); Opiate Screen,Urine Positive (Negative); Phencyclidine Screen,Urine Negative (Negative)
[2019-12-25] MEDS: FOLIC ACID 1 MG TABLET PO SCH (09:25)
[2019-12-25] MEDS: APIXABAN 5 MG TABLET PO SCH ×2 (09:25→20:32)
[2019-12-25] MEDS ORDERED: ONDANSETRON 4 MG/2 ML VIAL IV PRN (12:31)
[2019-12-25] MEDS: HYDROmorphone PCA 30 MG/30 ML SYRINGE IV SCH (16:36)
[2019-12-25] MEDS: SODIUM CHLORIDE 0.9% 1,000 ML IV SCH (16:38)
[2019-12-25] MEDS: NON-FORMULARY MEDICATION (Deferasirox [Jadenu] 360 MG) PO SCH (20:32)
[2019-12-25] MEDS: HYDROXYUREA 500 MG CAPSULE PO SCH (20:33)
[2019-12-25] MEDS: MONTELUKAST 10 MG TABLET PO SCH (20:33)
[2019-12-26] MEDS: oxyCODONE IR 5 MG TABLET PO SCH ×2 (03:47→08:29)
[2019-12-26] MEDS: diphenhydrAMINE 50 MG/1 ML VIAL IV SCH (05:48)
[2019-12-26] MEDS: SODIUM CHLORIDE 0.9% 1,000 ML IV SCH (05:50)
[2019-12-26] MEDS ORDERED: HEPARIN LOCK FLUSH 500 UNIT/5 ML SYRINGE IV ONE (06:54)
[2019-12-26 07:00] LABS: Basophils # 0.1 10*3/uL (0.0-0.2); Basophils % 0.6 % (0.0-0.8); Eosinophils # 0.4 10*3/uL (0.0-0.87); Eosinophils % 3.8 % (0.00-10.9); Hematocrit 29.7 VOL% (35.7-47.0); Hemoglobin 9.8 GM/DL (12.0-16.0); Immature Granulocytes % 0.2 %; Immature Granulocytes Absolute 0.02 #; Lymphocytes # 2.7 10*3/uL (1.4-4.0); Mean Corpuscular Volume 91.4 FL (87-102); Mean Platelet Volume 9.3 FL (9.6-12.0); Monocytes % 14.5 % (1.7-12.7); NRBC # 0.32 10*3/uL; Neutrophils % 51.9 % (38.7-73.9); Platelet Count 431 T/CUMM (130-400); Red Blood Count 3.25 MC/CUMM (3.8-5.5); Red Cell Distribution Width 17.7 % (9.3-17.3); White Blood Count 9.3 T/CUMM (4-12)
[2019-12-26 07:32] VITALS: BP 118/51
[2019-12-26 07:44] LABS: Albumin 3.7 G/DL (3.4-5.0); Bilirubin,Total 1.8 MG/DL (0.2-1.0); Calcium 8.8 MG/DL (8.5-10.1); Osmolality,Calculated 273.5 MOS/KG (273-304); Total Protein 6.9 G/DL (6.4-8.3)
[2019-12-26 07:54] LABS: Howell-Jolly Bodies Few; Hypochromasia 1+; Ovalocytes Slight; Pappenheimer Bodies Few; Platelet Estimate Adequate; Target Cells Few
[2019-12-26 07:55] LABS: Macrocytosis Slight; Polychromasia Slight; Sickle Cells Few
[2019-12-26] MEDS: FOLIC ACID 1 MG TABLET PO SCH (08:29)
[2019-12-26] MEDS: APIXABAN 5 MG TABLET PO SCH (08:29)
== END 2019-12-26 08:55 | disposition home or self-care (01) | DRG 812 ==
LOC: N.EDINP 13:02 → N.ED 13:02 → N.TELEN 18:07 → SUATTDRO 12-24 13:38
PROVIDERS: ADMIT Hospitalist; ATTEND Family Medicine

== ENCOUNTER 2020-02-16 23:45 | Inpatient (IN) ==
[2020-02-17] MEDS ORDERED: SODIUM CHLORIDE 0.9% 1,000 ML IV STA (01:29)
[2020-02-17] MEDS ORDERED: HYDROmorphone 2 MG/1 ML VIAL IV ONE ×2 (01:36→03:28)
[2020-02-17] MEDS ORDERED: diphenhydrAMINE 50 MG/1 ML VIAL IV STA (01:37)
[2020-02-17] MEDS ORDERED: ONDANSETRON 4 MG/2 ML VIAL IV STA (01:37)
[2020-02-17 02:44] LABS: Basophils # 0.1 10*3/uL (0.0-0.2); Basophils % 0.7 % (0.0-0.8); Eosinophils # 0.1 10*3/uL (0.0-0.87); Eosinophils % 0.9 % (0.00-10.9); Hematocrit 24.4 VOL% (35.7-47.0); Immature Granulocytes % 0.7 %; Immature Granulocytes Absolute 0.09 #; Lymphocytes # 4.9 10*3/uL (1.4-4.0); Lymphocytes % 40.5 % (21.3-54.2); Mean Corpuscular HGB Conc 32.8 GM/DL (32-36); Mean Corpuscular Volume 86.2 FL (87-102); Monocytes % 12.6 % (1.7-12.7); Neutrophils % 44.6 % (38.7-73.9); Platelet Count 551 T/CUMM (130-400); Red Blood Count 2.83 MC/CUMM (3.8-5.5); White Blood Count 12.1 T/CUMM (4-12)
[2020-02-17 02:50] LABS: Bacteria,Urine Occasional /HPF (Few); Bilirubin,Urine Negative (Negative); Blood, Urine Negative (Negative); Glucose,Urine (UA) Negative (Negative); Ketones,Urine 20 mg/dL (Negative); Mucus,Urine Few /LPF (Occasional); Nitrite,Urine Negative (Negative); Protein,Urine Negative; RBC,Urine <1 /HPF (0-4); Squamous Epithelial Cell,Urine Occasional /HPF (0-10); Urine Appearance CLEAR (Clear); Urine Color Yellow (Yellow); Urine Specific Gravity 1.015 (1.001-1.035); WBC,Urine 3 /HPF (0-6)
[2020-02-17 03:05] LABS: Albumin 3.4 G/DL (3.4-5.0); Bilirubin,Total 1.3 MG/DL (0.2-1.0); Calcium 9.4 MG/DL (8.5-10.1); Osmolality,Calculated 270.7 MOS/KG (273-304); Total Protein 7.3 G/DL (6.4-8.3)
[2020-02-17] MEDS ORDERED: POTASSIUM CHLORIDE 20 MEQ TABLET PO STA (03:25)
[2020-02-17] MEDS ORDERED: ONDANSETRON 4 MG/2 ML VIAL IV PRN (04:10)
[2020-02-17] MEDS ORDERED: DEXTROSE 50% 25 GM/50 ML VIAL IV PRN (04:10)
[2020-02-17] MEDS ORDERED: HYDROmorphone 2 MG/1 ML VIAL IV PRN ×2 (04:10→08:01)
[2020-02-17] MEDS ORDERED: GLUCAGON 1 MG VIAL IM PRN (04:10)
[2020-02-17 05:27] LABS: Band Neutrophils 1 % (0-10); Lymphocytes 44 % (20-55); Platelet Estimate Increased; Segmented Neutrophils 43 % (50-85); Total Cells Counted 100
[2020-02-17 05:28] LABS: Acanthocytes Few; Hypochromasia 2+; Ovalocytes 1+; Sickle Cells Few; Target Cells 2+
[2020-02-17 05:29] LABS: Anisocytosis 1+; Macrocytosis 1+
[2020-02-17] MEDS: SODIUM CHLORIDE 0.9% 1,000 ML IV SCH ×3 (05:57→23:02)
[2020-02-17] MEDS ORDERED: PROMETHAZINE 25 MG/1 ML VIAL IM PRN (07:59)
[2020-02-17] MEDS: POTASSIUM CHLORIDE 20 MEQ TABLET PO SCH (09:11)
[2020-02-17] MEDS: diphenhydrAMINE 50 MG/1 ML VIAL IV PRN ×4 (10:23→23:01)
[2020-02-17] MEDS: HYDROmorphone 2 MG/1 ML VIAL IV PRN ×7 (10:24→23:01)
[2020-02-17 14:15] LABS: Basophils # 0.1 10*3/uL (0.0-0.2); Basophils % 0.6 % (0.0-0.8); Eosinophils # 0.1 10*3/uL (0.0-0.87); Eosinophils % 0.6 % (0.00-10.9); Hematocrit 23.1 VOL% (35.7-47.0); Hemoglobin 7.6 GM/DL (12.0-16.0); Immature Granulocytes % 0.5 %; Immature Granulocytes Absolute 0.07 #; Lymphocytes # 4.1 10*3/uL (1.4-4.0); Mean Corpuscular HGB Conc 32.9 GM/DL (32-36); Mean Corpuscular Volume 86.5 FL (87-102); Mean Platelet Volume 8.8 FL (9.6-12.0); Monocytes % 11.2 % (1.7-12.7); NRBC # 0.02 10*3/uL; Neutrophils % 59.1 % (38.7-73.9); Platelet Count 495 T/CUMM (130-400); Red Blood Count 2.67 MC/CUMM (3.8-5.5); Red Cell Distribution Width 16.3 % (9.3-17.3); White Blood Count 14.5 T/CUMM (4-12)
[2020-02-17 14:41] LABS: Eosinophils 3 % (0-10); Lymphocytes 32 % (20-55); Nucleated Red Blood Cells 1 (0-5); Segmented Neutrophils 53 % (50-85); Total Cells Counted 100
[2020-02-17 14:42] LABS: Anisocytosis 1+; Macrocytosis 1+; Microcytosis Slight; Platelet Estimate Normal
[2020-02-17 14:43] LABS: Polychromasia Slight
[2020-02-18] MEDS: HYDROmorphone 2 MG/1 ML VIAL IV PRN ×9 (01:04→22:31)
[2020-02-18] MEDS: diphenhydrAMINE 50 MG/1 ML VIAL IV PRN ×7 (03:08→22:32)
[2020-02-18] MEDS: SODIUM CHLORIDE 0.9% 1,000 ML IV SCH ×3 (04:23→22:32)
[2020-02-18 05:30] LABS: Basophils # 0.1 10*3/uL (0.0-0.2); Basophils % 0.5 % (0.0-0.8); Eosinophils # 0.3 10*3/uL (0.0-0.87); Eosinophils % 1.8 % (0.00-10.9); Hematocrit 22.3 VOL% (35.7-47.0); Hemoglobin 7.5 GM/DL (12.0-16.0); Immature Granulocytes % 0.4 %; Immature Granulocytes Absolute 0.05 #; Lymphocytes # 4.5 10*3/uL (1.4-4.0); Lymphocytes % 32.4 % (21.3-54.2); Mean Corpuscular HGB Conc 33.6 GM/DL (32-36); Mean Corpuscular Volume 84.8 FL (87-102); Mean Platelet Volume 8.9 FL (9.6-12.0); Monocytes % 12.1 % (1.7-12.7); NRBC # 0.02 10*3/uL; Neutrophils % 52.8 % (38.7-73.9); Platelet Count 499 T/CUMM (130-400); Red Blood Count 2.63 MC/CUMM (3.8-5.5); Red Cell Distribution Width 16.6 % (9.3-17.3)
[2020-02-18 05:56] LABS: Calcium 8.4 MG/DL (8.5-10.1); Osmolality,Calculated 277.3 MOS/KG (273-304)
[2020-02-18 05:58] LABS: Band Neutrophils 1 % (0-10); Eosinophils 2 % (0-10); Lymphocytes 31 % (20-55); Platelet Estimate Normal; Segmented Neutrophils 53 % (50-85); Total Cells Counted 100
[2020-02-18 05:59] LABS: Anisocytosis 1+; Polychromasia Slight
[2020-02-18] MEDS ORDERED: SODIUM CHLORIDE 0.9% 1,000 ML IV PRN (08:45)
[2020-02-18] MEDS: POTASSIUM CHLORIDE 20 MEQ TABLET PO SCH (08:49)
[2020-02-18] MEDS: FOLIC ACID 1 MG TABLET PO SCH (20:26)
[2020-02-19] MEDS: diphenhydrAMINE 50 MG/1 ML VIAL IV PRN ×5 (01:27→13:47)
[2020-02-19] MEDS: HYDROmorphone 2 MG/1 ML VIAL IV PRN ×5 (01:27→13:46)
[2020-02-19] MEDS: SODIUM CHLORIDE 0.9% 1,000 ML IV SCH (07:04)
[2020-02-19] MEDS: FOLIC ACID 1 MG TABLET PO SCH (08:10)
[2020-02-19] MEDS: POTASSIUM CHLORIDE 20 MEQ TABLET PO SCH (08:10)
[2020-02-19] MEDS ORDERED: ENOXAPARIN 60 MG/0.6 ML SYRINGE SUBCUT SCH (09:30)
[2020-02-19 11:41] VITALS: BP 107/58
[2020-02-19] MEDS ORDERED: HEPARIN LOCK FLUSH 500 UNIT/5 ML SYRINGE IV ONE (13:42)
== END 2020-02-19 15:00 | disposition home or self-care (01) | DRG 831 ==
LOC: N.ED 23:45 → N.EDINP 23:45 → SUPCPDRO 02-17 04:10 → N.4E 02-17 05:20
PROVIDERS: ADMIT Internal Medicine; ATTEND Internal Medicine

== ENCOUNTER 2020-05-02 13:28 | Inpatient (IN) ==
[2020-05-02] MEDS ORDERED: SODIUM CHLORIDE 0.9% 1,000 ML IV STA (13:59)
[2020-05-02] MEDS ORDERED: ONDANSETRON 4 MG/2 ML VIAL IV STA (14:02)
[2020-05-02 14:38] LABS: Basophils # 0.1 10*3/uL (0.0-0.2); Basophils % 0.4 % (0.0-0.8); Eosinophils # 0.2 10*3/uL (0.0-0.87); Eosinophils % 1.6 % (0.00-10.9); Hematocrit 23.9 VOL% (35.7-47.0); Immature Granulocytes % 0.7 %; Immature Granulocytes Absolute 0.09 #; Lymphocytes % 23.2 % (21.3-54.2); Mean Corpuscular HGB Conc 33.5 GM/DL (32-36); Mean Platelet Volume 8.4 FL (9.6-12.0); Monocytes % 9.7 % (1.7-12.7); NRBC # 0.09 10*3/uL; Neutrophils % 64.4 % (38.7-73.9); Platelet Count 628 T/CUMM (130-400); Red Blood Count 2.78 MC/CUMM (3.8-5.5); Red Cell Distribution Width 17.3 % (9.3-17.3); White Blood Count 12.8 T/CUMM (4-12)
[2020-05-02 15:01] LABS: Albumin 3.3 G/DL (3.4-5.0); Calcium 8.9 MG/DL (8.5-10.1); Total Protein 8.7 G/DL (6.4-8.3)
[2020-05-02 15:08] LABS: Bilirubin,Urine Negative (Negative); Blood, Urine Large mg/dL (Negative); Glucose,Urine (UA) Negative (Negative); Hyaline Casts,Urine 1 /LPF (0-3); Ketones,Urine Negative (Negative); Mucus,Urine Many /LPF (Occasional); Nitrite,Urine Negative (Negative); Protein,Urine Negative; RBC,Urine 3 /HPF (0-4); Squamous Epithelial Cell,Urine Occasional /HPF (0-10); Urine Appearance CLEAR (Clear); Urine Color Yellow (Yellow); Urine Specific Gravity 1.013 (1.001-1.035); WBC,Urine 10 /HPF (0-6)
[2020-05-02 15:13] LABS: Barbiturates Screen,Urine Negative (Negative); Benzodiazepines Screen,Urine Negative (Negative); Cannabinoid Screen,Urine Negative (Negative); Opiate Screen,Urine Positive (Negative); Phencyclidine Screen,Urine Negative (Negative)
[2020-05-02 15:29] LABS: Eosinophils 2 % (0-10); Hypochromasia 3+; Lymphocytes 28 % (20-55); Microcytosis 2+; Segmented Neutrophils 66 % (50-85); Total Cells Counted 100
[2020-05-02] MEDS ORDERED: DEXTROSE 50% 25 GM/50 ML VIAL IV PRN (15:46)
[2020-05-02] MEDS ORDERED: ONDANSETRON 4 MG/2 ML VIAL IV PRN (15:46)
[2020-05-02] MEDS ORDERED: GLUCAGON 1 MG VIAL IM PRN (15:46)
[2020-05-02] MEDS ORDERED: HYDROmorphone 2 MG/1 ML VIAL IV STA (15:59)
[2020-05-02] MEDS ORDERED: diphenhydrAMINE 50 MG/1 ML VIAL IV STA (15:59)
[2020-05-02] MEDS ORDERED: ENOXAPARIN 40 MG/0.4 ML SYRINGE SUBCUT SCH (16:00)
[2020-05-02] MEDS ORDERED: NALOXONE 0.4 MG/ML VIAL IV PRN (16:05)
[2020-05-02] MEDS ORDERED: diphenhydrAMINE CAP 25 MG CAPSULE PO PRN (16:09)
[2020-05-02] MEDS ORDERED: HYDROmorphone PCA 30 MG/30 ML SYRINGE IV SCH (18:00)
[2020-05-02] MEDS: SODIUM CHLORIDE 0.9% 1,000 ML IV SCH (19:08)
[2020-05-02] MEDS: MONTELUKAST 10 MG TABLET PO SCH (20:40)
[2020-05-03] MEDS: SODIUM CHLORIDE 0.9% 1,000 ML IV SCH (05:00)
[2020-05-03 05:59] LABS: Basophils # 0.1 10*3/uL (0.0-0.2); Basophils % 0.4 % (0.0-0.8); Eosinophils # 0.3 10*3/uL (0.0-0.87); Eosinophils % 2.5 % (0.00-10.9); Hematocrit 22.2 VOL% (35.7-47.0); Immature Granulocytes % 0.6 %; Immature Granulocytes Absolute 0.08 #; Lymphocytes % 22.3 % (21.3-54.2); Mean Corpuscular HGB Conc 31.5 GM/DL (32-36); Mean Corpuscular Volume 89.5 FL (87-102); Mean Platelet Volume 8.7 FL (9.6-12.0); Monocytes % 13.5 % (1.7-12.7); NRBC # 0.05 10*3/uL; Neutrophils % 60.7 % (38.7-73.9); Platelet Count 593 T/CUMM (130-400); Red Blood Count 2.48 MC/CUMM (3.8-5.5); Red Cell Distribution Width 18.3 % (9.3-17.3); White Blood Count 13.5 T/CUMM (4-12)
[2020-05-03 06:23] LABS: Hypochromasia 2+; Platelet Estimate Adequate
[2020-05-03 06:24] LABS: Microcytosis 1+
[2020-05-03 06:26] LABS: Albumin 2.6 G/DL (3.4-5.0); Calcium 8.5 MG/DL (8.5-10.1); Osmolality,Calculated 277.3 MOS/KG (273-304); Total Protein 7.3 G/DL (6.4-8.3)
[2020-05-03] MEDS ORDERED: LEVOFLOXACIN INJ 500 MG in PREMIX 1 EACH IV SCH (07:00)
[2020-05-03] MEDS ORDERED: ENOXAPARIN 60 MG/0.6 ML SYRINGE SUBCUT SCH (09:00)
[2020-05-03] MEDS: PANTOPRAZOLE 40 MG TABLET PO SCH (09:32)
[2020-05-03] MEDS: FOLIC ACID 1 MG TABLET PO SCH (09:32)
[2020-05-03] MEDS: ENOXAPARIN 40 MG/0.4 ML SYRINGE SUBCUT SCH (11:09)
[2020-05-03] MEDS: HYDROmorphone 2 MG/1 ML VIAL IV PRN ×3 (12:35→20:53)
[2020-05-03] MEDS: diphenhydrAMINE 50 MG/1 ML VIAL IV PRN ×2 (12:38→18:09)
[2020-05-03] MEDS ORDERED: HYDROmorphone PCA 30 MG/30 ML SYRINGE IV SCH (18:00)
[2020-05-03] MEDS: MONTELUKAST 10 MG TABLET PO SCH (20:35)
[2020-05-04] MEDS: diphenhydrAMINE 50 MG/1 ML VIAL IV PRN ×2 (00:48→08:36)
[2020-05-04] MEDS: HYDROmorphone 2 MG/1 ML VIAL IV PRN ×7 (00:52→21:09)
[2020-05-04 05:00] LABS: Basophils # 0.1 10*3/uL (0.0-0.2); Basophils % 0.7 % (0.0-0.8); Eosinophils # 0.4 10*3/uL (0.0-0.87); Hematocrit 21.8 VOL% (35.7-47.0); Hemoglobin 7.1 GM/DL (12.0-16.0); Immature Granulocytes % 0.5 %; Immature Granulocytes Absolute 0.06 #; Lymphocytes # 3.6 10*3/uL (1.4-4.0); Lymphocytes % 28.7 % (21.3-54.2); Mean Corpuscular HGB Conc 32.6 GM/DL (32-36); Mean Corpuscular Volume 88.3 FL (87-102); Mean Platelet Volume 8.5 FL (9.6-12.0); Monocytes % 15.6 % (1.7-12.7); NRBC # 0.04 10*3/uL; Neutrophils % 51.5 % (38.7-73.9); Platelet Count 511 T/CUMM (130-400); Red Blood Count 2.47 MC/CUMM (3.8-5.5); Red Cell Distribution Width 17.8 % (9.3-17.3); White Blood Count 12.5 T/CUMM (4-12)
[2020-05-04 05:34] LABS: Albumin 2.7 G/DL (3.4-5.0); Bilirubin,Direct 0.15 MG/DL (0.0-0.20); Bilirubin,Indirect 0.8 MG/DL (0.0-1.0); Bilirubin,Total 0.9 MG/DL (0.2-1.0); Calcium 8.4 MG/DL (8.5-10.1); Ferritin 1990.5 ng/ml (8-252); Osmolality,Calculated 270.7 MOS/KG (273-304); Total Protein 7.3 G/DL (6.4-8.3)
[2020-05-04] MEDS: SODIUM CHLORIDE 0.9% 1,000 ML IV SCH (07:04)
[2020-05-04 07:11] LABS: Eosinophils 5 % (0-10); Hypochromasia 1+; Lymphocytes 27 % (20-55); Microcytosis 1+; Nucleated Red Blood Cells 1 (0-5); Ovalocytes Slight; Platelet Estimate Adequate; Segmented Neutrophils 56 % (50-85); Target Cells Few; Total Cells Counted 100
[2020-05-04] MEDS: ENOXAPARIN 40 MG/0.4 ML SYRINGE SUBCUT SCH (08:32)
[2020-05-04] MEDS: PANTOPRAZOLE 40 MG TABLET PO SCH (08:36)
[2020-05-04] MEDS: FOLIC ACID 1 MG TABLET PO SCH (08:36)
[2020-05-04] MEDS ORDERED: MAGNESIUM SULF RIDER 2 GM in PREMIX 1 EACH IV ONE (11:59)
[2020-05-04] MEDS: diphenhydrAMINE 50 MG/1 ML VIAL IV SCH ×2 (13:47→21:04)
[2020-05-04] MEDS: MONTELUKAST 10 MG TABLET PO SCH (21:04)
[2020-05-05] MEDS: HYDROmorphone 2 MG/1 ML VIAL IV PRN ×8 (00:20→22:22)
[2020-05-05] MEDS: diphenhydrAMINE 50 MG/1 ML VIAL IV SCH (04:28)
[2020-05-05] MEDS: SODIUM CHLORIDE 0.9% 1,000 ML IV SCH (04:34)
[2020-05-05 04:58] LABS: Basophils % 0.3 % (0.0-0.8); Eosinophils # 0.4 10*3/uL (0.0-0.87); Eosinophils % 3.4 % (0.00-10.9); Hematocrit 20.8 VOL% (35.7-47.0); Hemoglobin 6.8 GM/DL (12.0-16.0); Immature Granulocytes % 0.6 %; Immature Granulocytes Absolute 0.07 #; Lymphocytes # 3.3 10*3/uL (1.4-4.0); Lymphocytes % 26.5 % (21.3-54.2); Mean Corpuscular HGB Conc 32.7 GM/DL (32-36); Mean Corpuscular Volume 88.1 FL (87-102); Mean Platelet Volume 8.4 FL (9.6-12.0); Monocytes % 16.8 % (1.7-12.7); NRBC # 0.04 10*3/uL; Neutrophils % 52.4 % (38.7-73.9); Platelet Count 457 T/CUMM (130-400); Red Blood Count 2.36 MC/CUMM (3.8-5.5); Red Cell Distribution Width 17.7 % (9.3-17.3); White Blood Count 12.5 T/CUMM (4-12)
[2020-05-05 05:17] LABS: Calcium 7.8 MG/DL (8.5-10.1); Osmolality,Calculated 274.5 MOS/KG (273-304)
[2020-05-05 05:28] LABS: Eosinophils 2 % (0-10); Hypochromasia 1+; Lymphocytes 24 % (20-55); Microcytosis 1+; Polychromasia Slight; Segmented Neutrophils 58 % (50-85); Total Cells Counted 100
[2020-05-05 05:29] LABS: Pappenheimer Bodies Slight; Platelet Estimate Increased
[2020-05-05 05:30] LABS: Ovalocytes Slight; Target Cells Few
[2020-05-05] MEDS: FOLIC ACID 1 MG TABLET PO SCH (09:58)
[2020-05-05] MEDS: ENOXAPARIN 40 MG/0.4 ML SYRINGE SUBCUT SCH ×2 (09:58→10:01)
[2020-05-05] MEDS: PANTOPRAZOLE 40 MG TABLET PO SCH (09:58)
[2020-05-05] MEDS ORDERED: diphenhydrAMINE CAP 50 MG CAPSULE PO PRN (12:15)
[2020-05-05] MEDS ORDERED: POTASSIUM CHLORIDE 20 MEQ TABLET PO ONE (15:00)
[2020-05-05] MEDS ORDERED: POTASSIUM CHLORIDE 20 MEQ/15 ML UDCUP PO ONE (17:00)
[2020-05-05] MEDS: diphenhydrAMINE 50 MG/1 ML VIAL IV PRN ×2 (18:24→22:21)
[2020-05-05] MEDS: MONTELUKAST 10 MG TABLET PO SCH (21:31)
[2020-05-06] MEDS: HYDROmorphone 2 MG/1 ML VIAL IV PRN ×6 (02:25→21:53)
[2020-05-06] MEDS: diphenhydrAMINE 50 MG/1 ML VIAL IV PRN ×5 (02:26→18:47)
[2020-05-06] MEDS ORDERED: TISSUE ADHESIVE 1 EACH APPLICATOR TOP ONE (08:00)
[2020-05-06] MEDS ORDERED: BUPIVACAINE MPF 0.25% 30 ML VIAL ONE (08:00)
[2020-05-06] MEDS ORDERED: LIDOCAINE 1%/EPI INJ 20 ML VIAL ONE (08:00)
[2020-05-06] MEDS ORDERED: propofoL 200 MG/20 ML VIAL IV ONE ×3 (08:05→09:21)
[2020-05-06] MEDS ORDERED: LIDOCAINE 2% 5 ML VIAL ONE (08:05)
[2020-05-06] MEDS ORDERED: MIDAZOLAM 2 MG/2 ML VIAL ONE (08:05)
[2020-05-06] MEDS: FOLIC ACID 1 MG TABLET PO SCH (09:00)
[2020-05-06] MEDS: PANTOPRAZOLE 40 MG TABLET PO SCH (09:00)
[2020-05-06] MEDS: ENOXAPARIN 40 MG/0.4 ML SYRINGE SUBCUT SCH (09:00)
[2020-05-06] MEDS: SODIUM CHLORIDE 0.9% 1,000 ML IV SCH ×2 (18:56→18:58)
[2020-05-06] MEDS: MONTELUKAST 10 MG TABLET PO SCH (21:52)
[2020-05-07] MEDS: diphenhydrAMINE 50 MG/1 ML VIAL IV PRN ×4 (01:02→21:13)
[2020-05-07] MEDS: HYDROmorphone 2 MG/1 ML VIAL IV PRN ×7 (01:03→21:14)
[2020-05-07 06:58] LABS: Basophils # 0.1 10*3/uL (0.0-0.2); Basophils % 0.4 % (0.0-0.8); Eosinophils # 0.5 10*3/uL (0.0-0.87); Eosinophils % 2.9 % (0.00-10.9); Hematocrit 25.9 VOL% (35.7-47.0); Hemoglobin 8.2 GM/DL (12.0-16.0); Immature Granulocytes % 0.7 %; Immature Granulocytes Absolute 0.12 #; Lymphocytes # 3.7 10*3/uL (1.4-4.0); Lymphocytes % 22.4 % (21.3-54.2); Mean Corpuscular HGB Conc 31.7 GM/DL (32-36); Mean Corpuscular Volume 87.2 FL (87-102); Mean Platelet Volume 9.2 FL (9.6-12.0); Monocytes % 14.2 % (1.7-12.7); NRBC # 0.04 10*3/uL; Neutrophils % 59.4 % (38.7-73.9); Platelet Count 504 T/CUMM (130-400); Red Blood Count 2.97 MC/CUMM (3.8-5.5); Red Cell Distribution Width 18.6 % (9.3-17.3); White Blood Count 16.6 T/CUMM (4-12)
[2020-05-07 07:11] LABS: Albumin 3.2 G/DL (3.4-5.0); Bilirubin,Total 0.9 MG/DL (0.2-1.0); Osmolality,Calculated 262.4 MOS/KG (273-304); Total Protein 8.7 G/DL (6.4-8.3)
[2020-05-07] MEDS: FOLIC ACID 1 MG TABLET PO SCH ×2 (07:55→08:00)
[2020-05-07] MEDS: PANTOPRAZOLE 40 MG TABLET PO SCH ×2 (07:55→08:00)
[2020-05-07] MEDS: ENOXAPARIN 40 MG/0.4 ML SYRINGE SUBCUT SCH (08:01)
[2020-05-07 08:10] LABS: Atypical Lymphocytes Few; Hypochromasia 1+; Lymphocytes 25 % (20-55); Platelet Estimate Increased; Polychromasia Slight; Segmented Neutrophils 52 % (50-85); Total Cells Counted 100
[2020-05-07] MEDS ORDERED: SODIUM CHLORIDE 0.9% 1,000 ML IV SCH (09:00)
[2020-05-07] MEDS ORDERED: PHENOL 1.4% THROAT SPRAY 177 ML BOTTLE PO PRN (14:51)
[2020-05-07] MEDS: MONTELUKAST 10 MG TABLET PO SCH (22:14)
[2020-05-08] MEDS: HYDROmorphone 2 MG/1 ML VIAL IV PRN ×8 (00:22→21:49)
[2020-05-08] MEDS: diphenhydrAMINE 50 MG/1 ML VIAL IV PRN ×4 (03:18→21:43)
[2020-05-08 05:56] LABS: Basophils # 0.1 10*3/uL (0.0-0.2); Basophils % 0.4 % (0.0-0.8); Eosinophils # 0.5 10*3/uL (0.0-0.87); Eosinophils % 3.9 % (0.00-10.9); Hemoglobin 7.1 GM/DL (12.0-16.0); Immature Granulocytes % 0.4 %; Immature Granulocytes Absolute 0.06 #; Lymphocytes # 3.1 10*3/uL (1.4-4.0); Lymphocytes % 22.8 % (21.3-54.2); Mean Corpuscular HGB Conc 32.3 GM/DL (32-36); Mean Corpuscular Volume 86.3 FL (87-102); Mean Platelet Volume 8.9 FL (9.6-12.0); Monocytes % 15.5 % (1.7-12.7); NRBC # 0.04 10*3/uL; Platelet Count 463 T/CUMM (130-400); Red Blood Count 2.55 MC/CUMM (3.8-5.5); Red Cell Distribution Width 19.4 % (9.3-17.3); White Blood Count 13.5 T/CUMM (4-12)
[2020-05-08 06:22] LABS: Eosinophils 6 % (0-10); Lymphocytes 25 % (20-55); Platelet Estimate Adequate; Segmented Neutrophils 54 % (50-85); Total Cells Counted 100
[2020-05-08 06:23] LABS: Hypochromasia 2+; Microcytosis Slight; Ovalocytes Slight; Target Cells Few
[2020-05-08 06:52] LABS: Calcium 8.9 MG/DL (8.5-10.1); Osmolality,Calculated 260.5 MOS/KG (273-304)
[2020-05-08] MEDS: FOLIC ACID 1 MG TABLET PO SCH (08:54)
[2020-05-08] MEDS: PANTOPRAZOLE 40 MG TABLET PO SCH (08:54)
[2020-05-08] MEDS: ENOXAPARIN 40 MG/0.4 ML SYRINGE SUBCUT SCH (09:01)
[2020-05-08] MEDS: MONTELUKAST 10 MG TABLET PO SCH (21:43)
[2020-05-09] MEDS: HYDROmorphone 2 MG/1 ML VIAL IV PRN ×7 (00:54→21:27)
[2020-05-09] MEDS: diphenhydrAMINE 50 MG/1 ML VIAL IV PRN ×3 (03:58→17:41)
[2020-05-09 06:11] LABS: Basophils # 0.1 10*3/uL (0.0-0.2); Basophils % 0.6 % (0.0-0.8); Eosinophils # 1.2 10*3/uL (0.0-0.87); Eosinophils % 7.8 % (0.00-10.9); Hematocrit 23.9 VOL% (35.7-47.0); Hemoglobin 7.7 GM/DL (12.0-16.0); Immature Granulocytes % 0.6 %; Immature Granulocytes Absolute 0.09 #; Lymphocytes # 2.8 10*3/uL (1.4-4.0); Lymphocytes % 17.7 % (21.3-54.2); Mean Corpuscular HGB Conc 32.2 GM/DL (32-36); Mean Corpuscular Volume 85.4 FL (87-102); Mean Platelet Volume 8.9 FL (9.6-12.0); Monocytes % 13.3 % (1.7-12.7); NRBC # 0.03 10*3/uL; Platelet Count 536 T/CUMM (130-400); Red Cell Distribution Width 19.8 % (9.3-17.3); White Blood Count 15.8 T/CUMM (4-12)
[2020-05-09 06:30] LABS: Calcium 9.2 MG/DL (8.5-10.1); Osmolality,Calculated 264.4 MOS/KG (273-304)
[2020-05-09] MEDS: FOLIC ACID 1 MG TABLET PO SCH (08:28)
[2020-05-09] MEDS: ENOXAPARIN 40 MG/0.4 ML SYRINGE SUBCUT SCH ×2 (08:28→08:31)
[2020-05-09] MEDS: PANTOPRAZOLE 40 MG TABLET PO SCH (08:28)
[2020-05-09] MEDS: MONTELUKAST 10 MG TABLET PO SCH (21:27)
[2020-05-10] MEDS: diphenhydrAMINE 50 MG/1 ML VIAL IV PRN ×3 (01:04→15:18)
[2020-05-10] MEDS: HYDROmorphone 2 MG/1 ML VIAL IV PRN ×5 (01:07→15:20)
[2020-05-10 06:07] LABS: Basophils # 0.1 10*3/uL (0.0-0.2); Basophils % 0.6 % (0.0-0.8); Eosinophils # 1.1 10*3/uL (0.0-0.87); Eosinophils % 6.4 % (0.00-10.9); Hematocrit 21.9 VOL% (35.7-47.0); Hemoglobin 7.1 GM/DL (12.0-16.0); Immature Granulocytes % 0.4 %; Immature Granulocytes Absolute 0.07 #; Lymphocytes # 4.8 10*3/uL (1.4-4.0); Lymphocytes % 26.6 % (21.3-54.2); Mean Corpuscular HGB Conc 32.4 GM/DL (32-36); Mean Corpuscular Volume 83.9 FL (87-102); Mean Platelet Volume 8.7 FL (9.6-12.0); Monocytes % 12.9 % (1.7-12.7); NRBC # 0.04 10*3/uL; Neutrophils % 53.1 % (38.7-73.9); Platelet Count 570 T/CUMM (130-400); Red Blood Count 2.61 MC/CUMM (3.8-5.5); Red Cell Distribution Width 19.9 % (9.3-17.3); White Blood Count 17.9 T/CUMM (4-12)
[2020-05-10 06:33] LABS: Calcium 9.1 MG/DL (8.5-10.1); Osmolality,Calculated 265.8 MOS/KG (273-304)
[2020-05-10 06:35] LABS: Eosinophils 10 % (0-10); Hypochromasia 1+; Lymphocytes 26 % (20-55); Nucleated Red Blood Cells 1 (0-5); Platelet Estimate Increased; Segmented Neutrophils 51 % (50-85); Target Cells Few; Total Cells Counted 100
[2020-05-10 06:36] LABS: Microcytosis Slight; Ovalocytes Slight
[2020-05-10] MEDS: FOLIC ACID 1 MG TABLET PO SCH (09:01)
[2020-05-10] MEDS: PANTOPRAZOLE 40 MG TABLET PO SCH (09:01)
[2020-05-10] MEDS: ENOXAPARIN 40 MG/0.4 ML SYRINGE SUBCUT SCH (09:07)
[2020-05-10 12:04] VITALS: BP 101/56
== END 2020-05-10 16:00 | disposition home or self-care (01) | DRG 314 ==
LOC: N.ED 13:28 → N.EDINP 13:28 → N.4E 17:25 → SUATTDRO 05-03 14:10
PROVIDERS: ADMIT Internal Medicine; ATTEND Internal Medicine

== ENCOUNTER 2020-07-25 16:34 | Inpatient (IN) ==
[2020-07-25] MEDS ORDERED: SODIUM CHLORIDE 0.9% 1,000 ML IV STA (19:49)
[2020-07-25] MEDS ORDERED: ONDANSETRON 4 MG/2 ML VIAL IV STA (19:50)
[2020-07-25] MEDS ORDERED: HYDROmorphone 2 MG/1 ML VIAL IV STA (19:52)
[2020-07-25 20:42] LABS: Bilirubin,Urine Negative (Negative); Blood, Urine Small mg/dL (Negative); Glucose,Urine (UA) Negative (Negative); Ketones,Urine Negative (Negative); Mucus,Urine Moderate /LPF (Occasional); Nitrite,Urine Negative (Negative); Protein,Urine Negative; RBC,Urine 2 /HPF (0-4); Squamous Epithelial Cell,Urine Occasional /HPF (0-10); Urine Appearance CLEAR (Clear); Urine Color Amber (Yellow); Urine Specific Gravity 1.016 (1.001-1.035); WBC,Urine 34 /HPF (0-6)
[2020-07-25] MEDS ORDERED: diphenhydrAMINE CAP 25 MG CAPSULE PO STA (21:08)
[2020-07-25 21:12] LABS: Basophils # 0.1 10*3/uL (0.0-0.2); Basophils % 0.4 % (0.0-0.8); Eosinophils # 0.4 10*3/uL (0.0-0.87); Eosinophils % 2.7 % (0.00-10.9); Hematocrit 22.1 VOL% (35.7-47.0); Hemoglobin 6.9 GM/DL (12.0-16.0); Immature Granulocytes % 0.5 %; Immature Granulocytes Absolute 0.07 #; Lymphocytes # 4.6 10*3/uL (1.4-4.0); Mean Corpuscular HGB Conc 31.2 GM/DL (32-36); Mean Corpuscular Volume 87.7 FL (87-102); Mean Platelet Volume 8.8 FL (9.6-12.0); Monocytes % 12.5 % (1.7-12.7); Neutrophils % 49.9 % (38.7-73.9); Platelet Count 620 T/CUMM (130-400); Red Blood Count 2.52 MC/CUMM (3.8-5.5); Red Cell Distribution Width 20.1 % (9.3-17.3); White Blood Count 13.6 T/CUMM (4-12)
[2020-07-25 21:34] LABS: Alanine Aminotransferase 22 U/L (13-56); Albumin 3.5 G/DL (3.4-5.0); Alkaline Phosphatase 76 U/L (45-117); Aspartate Amino Transferase 23 U/L (0-37); Blood Urea Nitrogen 4 MG/DL (7-18); Calcium 9.2 MG/DL (8.5-10.1); Carbon Dioxide 31 MMOL/L (21-32); Estimated Glom Filtration Rate 132 ML/MIN; Glucose 76 MG/DL (74-106); Osmolality,Calculated 272.5 MOS/KG (273-304); Potassium 3.4 MMOL/L (3.5-5.1); Sodium 139 MMOL/L (136-145); Total Protein 8.8 G/DL (6.4-8.3); Troponin I < 0.015 NG/ML (0.00-0.045)
[2020-07-25] MEDS ORDERED: diphenhydrAMINE 50 MG/1 ML VIAL IV STA (21:52)
[2020-07-25 21:54] LABS: Anisocytosis 4+; Eosinophils 2 % (0-10); Hypochromasia 3+; Lymphocytes 38 % (20-55); Poikilocytosis 2+; Segmented Neutrophils 54 % (50-85); Total Cells Counted 100
[2020-07-25 21:55] LABS: Microcytosis 2+; Ovalocytes 2+; Sickle Cells Slight; Target Cells 2+
[2020-07-26] MEDS ORDERED: HYDROmorphone 2 MG/1 ML VIAL IV STA (00:54)
[2020-07-26] MEDS ORDERED: SODIUM CHLORIDE 0.9% 1,000 ML IV PRN (01:15)
[2020-07-26] MEDS ORDERED: NALOXONE 0.4 MG/ML VIAL IV PRN (01:17)
[2020-07-26] MEDS ORDERED: HYDROmorphone PCA 30 MG/30 ML SYRINGE IV SCH (01:30)
[2020-07-26] MEDS ORDERED: methylPREDNISolone SOD SUC 40 MG/1 ML VIAL IV ONE ×2 (04:11→22:51)
[2020-07-26] MEDS ORDERED: DEXTROSE 50% 25 GM/50 ML VIAL IV PRN (04:12)
[2020-07-26] MEDS ORDERED: ONDANSETRON 4 MG/2 ML VIAL IV PRN (04:12)
[2020-07-26] MEDS ORDERED: hydrALAZINE 20 MG/1 ML VIAL IV PRN (04:12)
[2020-07-26] MEDS ORDERED: ACETAMINOPHEN 325 MG TABLET PO PRN (04:12)
[2020-07-26] MEDS ORDERED: DOCUSATE SODIUM 100 MG CAPSULE PO PRN (04:12)
[2020-07-26] MEDS ORDERED: GLUCAGON 1 MG VIAL IM PRN (04:12)
[2020-07-26] MEDS ORDERED: ACETAMINOPHEN 325 MG TABLET PO SCH (04:30)
[2020-07-26] MEDS ORDERED: diphenhydrAMINE 50 MG/1 ML VIAL IV SCH ×2 (04:30→16:30)
[2020-07-26] MEDS ORDERED: LEVOFLOXACIN INJ 500 MG in PREMIX 1 EACH IV SCH (05:00)
[2020-07-26] MEDS ORDERED: ALBUTEROL 2.5 MG/3 ML NEB RESP TX PRN (05:04)
[2020-07-26] MEDS: SODIUM CHLORIDE 0.9% 1,000 ML IV SCH ×2 (05:24→20:48)
[2020-07-26] MEDS: HYDROmorphone 2 MG/1 ML VIAL IV PRN ×6 (05:44→23:45)
[2020-07-26] MEDS ORDERED: HYDROXYUREA 500 MG CAPSULE PO SCH (09:00)
[2020-07-26] MEDS ORDERED: FOLIC ACID 1 MG TABLET PO SCH (09:00)
[2020-07-26] MEDS ORDERED: MONTELUKAST 10 MG TABLET PO SCH (21:00)
[2020-07-26] MEDS ORDERED: diphenhydrAMINE CAP 25 MG CAPSULE PO ONE (22:50)
[2020-07-27] MEDS ORDERED: HYDROmorphone PCA 30 MG/30 ML SYRINGE IV SCH (01:30)
[2020-07-27 05:11] VITALS: BP 123/69
[2020-07-27] MEDS ORDERED: oxyCODONE IR 5 MG TABLET PO PRN (05:28)
[2020-07-27 06:55] LABS: Basophils # 0.1 10*3/uL (0.0-0.2); Basophils % 0.5 % (0.0-0.8); Eosinophils # 0.3 10*3/uL (0.0-0.87); Eosinophils % 2.3 % (0.00-10.9); Hematocrit 26.6 VOL% (35.7-47.0); Hemoglobin 8.7 GM/DL (12.0-16.0); Immature Granulocytes % 0.5 %; Immature Granulocytes Absolute 0.05 #; Lymphocytes # 2.8 10*3/uL (1.4-4.0); Lymphocytes % 25.2 % (21.3-54.2); Mean Corpuscular HGB Conc 32.7 GM/DL (32-36); Mean Corpuscular Volume 85.8 FL (87-102); Monocytes % 14.6 % (1.7-12.7); NRBC # 0.12 10*3/uL; Neutrophils % 56.9 % (38.7-73.9); Platelet Count 438 T/CUMM (130-400); Red Cell Distribution Width 17.9 % (9.3-17.3); White Blood Count 10.9 T/CUMM (4-12)
[2020-07-27 08:13] LABS: Osmolality,Calculated 273.5 MOS/KG (273-304); Potassium 3.5 MMOL/L (3.5-5.1)
[2020-07-27] MEDS ORDERED: INFLUENZA VIRUS VACCINE 0.5 ML SYRINGE IM ONE (09:00)
== END 2020-07-27 09:11 | disposition home or self-care (01) | DRG 812 ==
LOC: N.ED 16:34 → N.EDINP 07-26 01:14 → N.4E 07-26 04:00
PROVIDERS: ADMIT Internal Medicine; ATTEND Internal Medicine

== ENCOUNTER 2020-09-11 14:06 | Inpatient (IN) ==
[2020-09-11] MEDS ORDERED: SODIUM CHLORIDE 0.9% 1,000 ML IV STA (14:24)
[2020-09-11] MEDS ORDERED: ONDANSETRON 4 MG/2 ML VIAL IV STA (14:24)
[2020-09-11] MEDS ORDERED: HYDROmorphone 2 MG/1 ML VIAL IV STA (14:24)
[2020-09-11 14:49] LABS: Basophils # 0.1 10*3/uL (0.0-0.2); Basophils % 0.5 % (0.0-0.8); Eosinophils # 0.3 10*3/uL (0.0-0.87); Eosinophils % 1.9 % (0.00-10.9); Hematocrit 22.4 VOL% (35.7-47.0); Hemoglobin 7.4 GM/DL (12.0-16.0); Immature Granulocytes % 0.4 %; Immature Granulocytes Absolute 0.06 #; Lymphocytes # 4.2 10*3/uL (1.4-4.0); Lymphocytes % 30.2 % (21.3-54.2); Mean Corpuscular Volume 84.2 FL (87-102); Mean Platelet Volume 8.9 FL (9.6-12.0); Monocytes % 11.7 % (1.7-12.7); NRBC # 0.04 10*3/uL; Neutrophils % 55.3 % (38.7-73.9); Platelet Count 487 T/CUMM (130-400); Red Blood Count 2.66 MC/CUMM (3.8-5.5); Red Cell Distribution Width 17.3 % (9.3-17.3); White Blood Count 13.8 T/CUMM (4-12)
[2020-09-11 15:05] LABS: Albumin 3.6 G/DL (3.4-5.0); Calcium 9.1 MG/DL (8.5-10.1); Osmolality,Calculated 269.8 MOS/KG (273-304); Potassium 3.1 MMOL/L (3.5-5.1); Total Protein 8.2 G/DL (6.4-8.2)
[2020-09-11] MEDS ORDERED: diphenhydrAMINE 50 MG/1 ML VIAL ONE (15:40)
[2020-09-11] MEDS ORDERED: diphenhydrAMINE 50 MG/1 ML VIAL IV STA (15:41)
[2020-09-11 16:00] LABS: Eosinophils 2 % (0-10); Lymphocytes 26 % (20-55); Segmented Neutrophils 61 % (50-85); Total Cells Counted 100
[2020-09-11 16:03] LABS: Target Cells Few
[2020-09-11 16:04] LABS: Anisocytosis 2+; Hypochromasia 2+; Sickle Cells Slight
[2020-09-11 16:06] LABS: Microcytosis 1+; Ovalocytes Few; Platelet Estimate Adequate; Polychromasia Few
[2020-09-11] MEDS ORDERED: NALOXONE 0.4 MG/ML VIAL IV PRN (16:27)
[2020-09-11] MEDS ORDERED: ONDANSETRON 4 MG/2 ML VIAL IV PRN (16:27)
[2020-09-11] MEDS ORDERED: SODIUM CHLORIDE 0.9% 1,000 ML IV PRN (16:27)
[2020-09-11] MEDS ORDERED: DEXTROSE 50% 25 GM/50 ML VIAL IV PRN (16:27)
[2020-09-11] MEDS ORDERED: GLUCAGON 1 MG VIAL IM PRN (16:27)
[2020-09-11] MEDS ORDERED: HYDROmorphone PCA 30 MG/30 ML SYRINGE IV SCH (16:30)
[2020-09-11] MEDS ORDERED: METAXALONE 800 MG TABLET PO PRN (16:30)
[2020-09-11] MEDS ORDERED: POTASSIUM CHLORIDE 20 MEQ TABLET PO ONE (16:34)
[2020-09-11] MEDS: ENOXAPARIN 40 MG/0.4 ML SYRINGE SUBCUT SCH (19:18)
[2020-09-11] MEDS: LACTATED RINGERS 1,000 ML IV SCH (20:15)
[2020-09-11] MEDS ORDERED: diphenhydrAMINE 50 MG/1 ML VIAL IV PRN (20:35)
[2020-09-11] MEDS: MONTELUKAST 10 MG TABLET PO SCH (21:08)
[2020-09-12 04:27] LABS: Bacteria,Urine Occasional /HPF (Few); Bilirubin,Urine Negative (Negative); Blood, Urine Moderate mg/dL (Negative); Glucose,Urine (UA) Negative (Negative); Ketones,Urine Negative (Negative); Mucus,Urine Occasional /LPF (Occasional); Nitrite,Urine Negative (Negative); Protein,Urine Negative; RBC,Urine 10 /HPF (0-4); Squamous Epithelial Cell,Urine Occasional /HPF (0-10); Urine Appearance CLEAR (Clear); Urine Color Yellow (Yellow); Urine Specific Gravity 1.012 (1.001-1.035); Urine Urobilinogen < 2.0 EU/DL (0.2-1.0); WBC,Urine 5 /HPF (0-6)
[2020-09-12] MEDS: LACTATED RINGERS 1,000 ML IV SCH ×3 (05:44→13:55)
[2020-09-12] MEDS ORDERED: HYDROmorphone 2 MG/1 ML VIAL IV ONE (08:13)
[2020-09-12] MEDS ORDERED: OXYCODONE 15 MG PO PRN (08:14)
[2020-09-12] MEDS ORDERED: oxyCODONE IR 5 MG TABLET PO PRN (08:19)
[2020-09-12] MEDS: diphenhydrAMINE 50 MG/1 ML VIAL IV PRN ×2 (08:55→16:36)
[2020-09-12] MEDS: PANTOPRAZOLE 40 MG TABLET PO SCH (08:56)
[2020-09-12] MEDS: FOLIC ACID 1 MG TABLET PO SCH (08:56)
[2020-09-12] MEDS: HYDROXYUREA 500 MG CAPSULE PO SCH (08:56)
[2020-09-12 11:15] LABS: Basophils # 0.1 10*3/uL (0.0-0.2); Basophils % 0.4 % (0.0-0.8); Eosinophils # 0.5 10*3/uL (0.0-0.87); Eosinophils % 3.8 % (0.00-10.9); Hematocrit 19.8 VOL% (35.7-47.0); Immature Granulocytes % 0.6 %; Immature Granulocytes Absolute 0.08 #; Lymphocytes # 3.2 10*3/uL (1.4-4.0); Lymphocytes % 24.7 % (21.3-54.2); Mean Corpuscular HGB Conc 32.3 GM/DL (32-36); Mean Corpuscular Volume 84.6 FL (87-102); Mean Platelet Volume 8.7 FL (9.6-12.0); Monocytes % 10.3 % (1.7-12.7); NRBC # 0.04 10*3/uL; Neutrophils % 60.2 % (38.7-73.9); Platelet Count 517 T/CUMM (130-400); Red Blood Count 2.34 MC/CUMM (3.8-5.5); Red Cell Distribution Width 17.9 % (9.3-17.3); White Blood Count 12.8 T/CUMM (4-12)
[2020-09-12 11:17] LABS: Hemoglobin 6.4 GM/DL (12.0-16.0)
[2020-09-12 11:45] LABS: Calcium 8.6 MG/DL (8.5-10.1); Osmolality,Calculated 272.5 MOS/KG (273-304); Potassium 3.5 MMOL/L (3.5-5.1); Total Protein 6.9 G/DL (6.4-8.2)
[2020-09-12] MEDS ORDERED: SODIUM CHLORIDE 0.9% 1,000 ML IV PRN (14:09)
[2020-09-12] MEDS ORDERED: HYDROmorphone PCA 30 MG/30 ML SYRINGE IV SCH (16:30)
[2020-09-12] MEDS: ENOXAPARIN 40 MG/0.4 ML SYRINGE SUBCUT SCH (18:00)
[2020-09-12] MEDS: MONTELUKAST 10 MG TABLET PO SCH (21:08)
[2020-09-13] MEDS: diphenhydrAMINE 50 MG/1 ML VIAL IV PRN ×2 (01:03→09:24)
[2020-09-13] MEDS: LACTATED RINGERS 1,000 ML IV SCH ×3 (01:48→11:14)
[2020-09-13 06:48] LABS: Hematocrit 28.5 VOL% (35.7-47.0); Hemoglobin 9.5 GM/DL (12.0-16.0)
[2020-09-13 07:43] VITALS: BP 122/61
[2020-09-13] MEDS ORDERED: ACETAMINOPHEN 325 MG TABLET PO PRN (08:06)
[2020-09-13] MEDS ORDERED: MAGNESIUM SULF RIDER 4 GM in PREMIX 1 EACH IV ONE (08:08)
[2020-09-13 08:37] LABS: Basophils # 0.1 10*3/uL (0.0-0.2); Basophils % 0.6 % (0.0-0.8); Eosinophils # 0.6 10*3/uL (0.0-0.87); Eosinophils % 4.9 % (0.00-10.9); Hematocrit 30.8 VOL% (35.7-47.0); Hemoglobin 10.3 GM/DL (12.0-16.0); Immature Granulocytes % 0.3 %; Immature Granulocytes Absolute 0.04 #; Lymphocytes % 34.4 % (21.3-54.2); Mean Corpuscular HGB Conc 33.4 GM/DL (32-36); Mean Platelet Volume 8.6 FL (9.6-12.0); Monocytes % 12.6 % (1.7-12.7); NRBC # 0.05 10*3/uL; Neutrophils % 47.2 % (38.7-73.9); Platelet Count 430 T/CUMM (130-400); Red Cell Distribution Width 16.9 % (9.3-17.3); White Blood Count 11.6 T/CUMM (4-12)
[2020-09-13 08:40] LABS: Red Blood Count 3.71 MC/CUMM (3.8-5.5)
[2020-09-13 08:52] LABS: Calcium 9.2 MG/DL (8.5-10.1); Osmolality,Calculated 269.8 MOS/KG (273-304); Potassium 3.8 MMOL/L (3.5-5.1)
[2020-09-13] MEDS: PANTOPRAZOLE 40 MG TABLET PO SCH (09:22)
[2020-09-13] MEDS: HYDROXYUREA 500 MG CAPSULE PO SCH (09:22)
[2020-09-13] MEDS: FOLIC ACID 1 MG TABLET PO SCH (09:22)
== END 2020-09-13 11:10 | disposition home or self-care (01) | DRG 812 ==
LOC: N.ED 14:06 → N.EDINP 14:06 → N.3E 16:33
PROVIDERS: ADMIT Family Medicine; ATTEND Family Medicine

== ENCOUNTER 2020-11-20 09:02 | Observation (INO) ==
[2020-11-20] MEDS ORDERED: ONDANSETRON 4 MG/2 ML VIAL IV STA (10:57)
[2020-11-20] MEDS ORDERED: fentaNYL 100 MCG/2 ML VIAL IV STA ×2 (10:57→11:34)
[2020-11-20 11:00] LABS: Basophils # 0.1 10*3/uL (0.0-0.2); Basophils % 0.9 % (0.0-0.8); Eosinophils # 0.4 10*3/uL (0.0-0.87); Eosinophils % 3.7 % (0.00-10.9); Hematocrit 24.9 VOL% (35.7-47.0); Hemoglobin 8.5 GM/DL (12.0-16.0); Immature Granulocytes % 0.3 %; Immature Granulocytes Absolute 0.03 #; Lymphocytes % 35.4 % (21.3-54.2); Mean Corpuscular HGB Conc 34.1 GM/DL (32-36); Mean Corpuscular Volume 85.6 FL (87-102); Mean Platelet Volume 9.4 FL (9.6-12.0); Monocytes % 14.2 % (1.7-12.7); NRBC # 0.03 10*3/uL; Neutrophils % 45.5 % (38.7-73.9); Platelet Count 449 T/CUMM (130-400); Red Blood Count 2.91 MC/CUMM (3.8-5.5); Red Cell Distribution Width 17.2 % (9.3-17.3); White Blood Count 11.3 T/CUMM (4-12)
[2020-11-20 11:20] LABS: Albumin 3.6 G/DL (3.4-5.0); Bilirubin,Total 1.8 MG/DL (0.2-1.0); Calcium 8.7 MG/DL (8.5-10.1); Osmolality,Calculated 274.5 MOS/KG (273-304); Potassium 3.7 MMOL/L (3.5-5.1); Total Protein 7.7 G/DL (6.4-8.2)
[2020-11-20] MEDS ORDERED: diphenhydrAMINE 50 MG/1 ML VIAL IV STA (11:23)
[2020-11-20] MEDS ORDERED: HYDROmorphone 2 MG/1 ML VIAL IV STA (12:20)
[2020-11-20] MEDS ORDERED: NALOXONE 0.4 MG/ML VIAL IV PRN (13:31)
[2020-11-20] MEDS ORDERED: SODIUM CHLORIDE 0.9% 1,000 ML IV PRN (13:31)
[2020-11-20] MEDS ORDERED: ONDANSETRON 4 MG/2 ML VIAL IV PRN (13:32)
[2020-11-20] MEDS ORDERED: ALBUTEROL 2.5 MG/3 ML NEB RESP TX PRN (13:32)
[2020-11-20] MEDS ORDERED: DEXTROSE 50% 25 GM/50 ML VIAL IV PRN (13:32)
[2020-11-20] MEDS ORDERED: GLUCAGON 1 MG VIAL IM PRN (13:32)
[2020-11-20] MEDS ORDERED: hydrOXYzine HCL 25 MG TABLET PO STA (13:34)
[2020-11-20] MEDS ORDERED: HYDROmorphone PCA 30 MG/30 ML SYRINGE IV SCH (14:00)
[2020-11-20] MEDS ORDERED: LORazepam 2 MG/1 ML VIAL IV ONE (16:06)
[2020-11-20] MEDS: LACTATED RINGERS 1,000 ML IV SCH (18:17)
[2020-11-20] MEDS: ENOXAPARIN 40 MG/0.4 ML SYRINGE SUBCUT SCH (18:37)
[2020-11-20] MEDS ORDERED: diphenhydrAMINE CAP 25 MG CAPSULE PO PRN (20:14)
[2020-11-21] MEDS: LACTATED RINGERS 1,000 ML IV SCH (01:19)
[2020-11-21 05:03] LABS: Basophils # 0.1 10*3/uL (0.0-0.2); Basophils % 0.8 % (0.0-0.8); Eosinophils # 0.6 10*3/uL (0.0-0.87); Hematocrit 22.5 VOL% (35.7-47.0); Hemoglobin 7.3 GM/DL (12.0-16.0); Immature Granulocytes % 0.3 %; Immature Granulocytes Absolute 0.03 #; Lymphocytes # 4.5 10*3/uL (1.4-4.0); Lymphocytes % 38.5 % (21.3-54.2); Mean Corpuscular HGB Conc 32.4 GM/DL (32-36); Mean Corpuscular Volume 88.2 FL (87-102); Mean Platelet Volume 9.7 FL (9.6-12.0); Monocytes % 15.8 % (1.7-12.7); NRBC # 0.02 10*3/uL; Neutrophils % 39.6 % (38.7-73.9); Platelet Count 430 T/CUMM (130-400); Red Blood Count 2.55 MC/CUMM (3.8-5.5); Red Cell Distribution Width 17.2 % (9.3-17.3); White Blood Count 11.6 T/CUMM (4-12)
[2020-11-21 05:07] LABS: Calcium 8.3 MG/DL (8.5-10.1); Osmolality,Calculated 279.3 MOS/KG (273-304); Potassium 3.6 MMOL/L (3.5-5.1)
[2020-11-21 05:26] LABS: Eosinophils 6 % (0-10); Hypochromasia 1+; Lymphocytes 41 % (20-55); Platelet Estimate Adequate; Segmented Neutrophils 32 % (50-85); Total Cells Counted 100
[2020-11-21 05:27] LABS: Elliptocytes Few; Howell-Jolly Bodies Few; Microcytosis Slight; Pappenheimer Bodies Slight; Sickle Cells Slight
[2020-11-21] MEDS ORDERED: PANTOPRAZOLE 40 MG TABLET PO SCH (09:00)
[2020-11-21] MEDS ORDERED: ONDANSETRON 4 MG TABLET PO PRN (10:24)
[2020-11-21 11:55] VITALS: BP 107/59
[2020-11-21] MEDS: ENOXAPARIN 40 MG/0.4 ML SYRINGE SUBCUT SCH (13:30)
[2020-11-21] MEDS ORDERED: HEPARIN LOCK FLUSH 500 UNIT/5 ML SYRINGE IV ONE (13:57)
[2020-11-21] MEDS ORDERED: HYDROmorphone PCA 30 MG/30 ML SYRINGE IV SCH (14:00)
[2020-11-21] MEDS ORDERED: HYDROXYUREA 500 MG CAPSULE PO SCH (15:00)
[2020-11-21] MEDS ORDERED: MONTELUKAST 10 MG TABLET PO SCH (21:00)
[2020-11-22] MEDS ORDERED: FOLIC ACID 1 MG TABLET PO SCH (09:00)
== END 2020-11-21 14:29 | disposition left against medical advice (07) ==
LOC: N.ED 09:02 → N.EDINP 09:02 → SUATTDRO 12:22 → N.4E 13:37
PROVIDERS: ADMIT Internal Medicine; ATTEND Internal Medicine

== ENCOUNTER 2020-12-30 07:49 | Inpatient (IN) ==
[2020-12-30] MEDS ORDERED: ONDANSETRON 4 MG/2 ML VIAL IV ONE (09:06)
[2020-12-30] MEDS ORDERED: diphenhydrAMINE 50 MG/1 ML VIAL IV STA (09:06)
[2020-12-30] MEDS ORDERED: SODIUM CHLORIDE 0.9% 1,000 ML IV STA (09:06)
[2020-12-30] MEDS ORDERED: HYDROmorphone 2 MG/1 ML VIAL IV STA ×2 (09:06→12:56)
[2020-12-30 09:52] LABS: Basophils # 0.1 10*3/uL (0.0-0.2); Basophils % 0.4 % (0.0-0.8); Eosinophils # 0.5 10*3/uL (0.0-0.87); Eosinophils % 2.7 % (0.00-10.9); Hematocrit 20.8 VOL% (35.7-47.0); Hemoglobin 6.7 GM/DL (12.0-16.0); Immature Granulocytes % 0.8 %; Immature Granulocytes Absolute 0.15 #; Lymphocytes # 3.9 10*3/uL (1.4-4.0); Lymphocytes % 19.4 % (21.3-54.2); Mean Corpuscular HGB Conc 32.2 GM/DL (32-36); Mean Platelet Volume 9.4 FL (9.6-12.0); Monocytes % 12.2 % (1.7-12.7); Neutrophils % 64.5 % (38.7-73.9); Platelet Count 440 T/CUMM (130-400); Red Blood Count 2.39 MC/CUMM (3.8-5.5); Red Cell Distribution Width 21.2 % (9.3-17.3)
[2020-12-30 10:05] LABS: Albumin 3.6 G/DL (3.4-5.0); Bilirubin,Total 1.1 MG/DL (0.20-1.00); Calcium 8.7 MG/DL (8.5-10.1); Osmolality,Calculated 275.4 MOS/KG (273-304); Potassium 3.4 MMOL/L (3.5-5.1); Total Protein 7.3 G/DL (6.4-8.2)
[2020-12-30] MEDS ORDERED: SODIUM CHLORIDE 0.9% 1,000 ML IV PRN (10:12)
[2020-12-30] MEDS ORDERED: DEXTROSE 50% 25 GM/50 ML VIAL IV PRN (10:12)
[2020-12-30] MEDS ORDERED: NALOXONE 0.4 MG/ML VIAL IV PRN (10:12)
[2020-12-30] MEDS ORDERED: GLUCAGON 1 MG VIAL IM PRN (10:12)
[2020-12-30] MEDS ORDERED: BISACODYL 5 MG TABLET PO PRN (10:13)
[2020-12-30] MEDS ORDERED: ACETAMINOPHEN 325 MG TABLET PO PRN (10:13)
[2020-12-30] MEDS ORDERED: ONDANSETRON 4 MG/2 ML VIAL IV PRN (10:13)
[2020-12-30] MEDS ORDERED: diphenhydrAMINE CAP 25 MG CAPSULE PO PRN ×2 (10:13→22:19)
[2020-12-30] MEDS ORDERED: MAGNESIUM SULF RIDER 4 GM/100 ML PREMIX IV PRN (10:14)
[2020-12-30] MEDS ORDERED: MAGNESIUM SULF RIDER 2 GM/50 ML PREMIX IV PRN (10:14)
[2020-12-30 10:16] LABS: Band Neutrophils 2 % (0-10); Basophilic Stippling Slight; Eosinophils 4 % (0-10); Lymphocytes 22 % (20-55); Nucleated Red Blood Cells 2 (0-5); Polychromasia 1+; Segmented Neutrophils 59 % (50-85); Total Cells Counted 100
[2020-12-30 10:17] LABS: Anisocytosis 3+; Dohle Bodies Few; Pappenheimer Bodies Few
[2020-12-30] MEDS ORDERED: HYDROmorphone PCA 30 MG/30 ML SYRINGE IV SCH (10:30)
[2020-12-30 11:16] LABS: Bilirubin,Urine Negative (Negative); Blood, Urine Negative (Negative); Glucose,Urine (UA) Negative (Negative); Hyaline Casts,Urine 1 /LPF (0-3); Ketones,Urine Negative (Negative); Nitrite,Urine Negative (Negative); Protein,Urine Negative; RBC,Urine 1 /HPF (0-4); Squamous Epithelial Cell,Urine Occasional /HPF (0-10); Urine Appearance CLEAR (Clear); Urine Color Straw (Yellow); Urine Specific Gravity 1.003 (1.001-1.035); Urine Urobilinogen < 2.0 EU/DL (0.2-1.0)
[2020-12-30] MEDS ORDERED: HYDROmorphone INJ 50 MG in SODIUM CHLORIDE 0.9% 45 ML IV SCH (12:30)
[2020-12-30] MEDS: SODIUM CHLORIDE 0.45% 1,000 ML IV SCH (12:35)
[2020-12-30] MEDS ORDERED: HYDROmorphone 2 MG/1 ML VIAL IV ONE ×2 (14:20→20:30)
[2020-12-30] MEDS: POTASSIUM CHLORIDE 20 MEQ TABLET PO PRN (17:41)
[2020-12-31] MEDS: SODIUM CHLORIDE 0.45% 1,000 ML IV SCH ×5 (04:58→22:50)
[2020-12-31 06:13] LABS: Basophils # 0.1 10*3/uL (0.0-0.2); Basophils % 0.5 % (0.0-0.8); Eosinophils # 0.8 10*3/uL (0.0-0.87); Eosinophils % 7.1 % (0.00-10.9); Hematocrit 27.5 VOL% (35.7-47.0); Hemoglobin 8.9 GM/DL (12.0-16.0); Immature Granulocytes % 0.2 %; Immature Granulocytes Absolute 0.02 #; Lymphocytes # 3.4 10*3/uL (1.4-4.0); Lymphocytes % 31.9 % (21.3-54.2); Mean Corpuscular HGB Conc 32.4 GM/DL (32-36); Mean Corpuscular Volume 88.1 FL (87-102); Mean Platelet Volume 9.1 FL (9.6-12.0); Monocytes % 16.7 % (1.7-12.7); NRBC # 0.15 10*3/uL; Neutrophils % 43.6 % (38.7-73.9); Platelet Count 340 T/CUMM (130-400); Red Blood Count 3.12 MC/CUMM (3.8-5.5); Red Cell Distribution Width 18.6 % (9.3-17.3); White Blood Count 10.8 T/CUMM (4-12)
[2020-12-31 06:29] LABS: Calcium 8.7 MG/DL (8.5-10.1); Osmolality,Calculated 277.3 MOS/KG (273-304); Potassium 3.7 MMOL/L (3.5-5.1)
[2020-12-31 09:34] LABS: Anisocytosis 2+; Band Neutrophils 2 % (0-10); Eosinophils 8 % (0-10); Lymphocytes 34 % (20-55); Macrocytosis 1+; Nucleated Red Blood Cells 1 (0-5); Ovalocytes Few; Platelet Estimate Normal; Poikilocytosis 1+; Segmented Neutrophils 40 % (50-85); Target Cells Few; Total Cells Counted 100
[2020-12-31] MEDS: FOLIC ACID 1 MG TABLET PO SCH (09:50)
[2020-12-31] MEDS ORDERED: HYDROmorphone 2 MG/1 ML VIAL IV ONE (09:51)
[2020-12-31] MEDS ORDERED: DOCUSATE SODIUM 100 MG CAPSULE PO PRN (09:56)
[2020-12-31] MEDS: diphenhydrAMINE 50 MG/1 ML VIAL IV PRN ×3 (10:30→22:36)
[2020-12-31] MEDS: POLYETHYLENE GLYCOL POWDER 17 GM PACK PO SCH (11:15)
[2020-12-31 12:24] LABS: Bacteria,Urine Occasional /HPF (Few); Bilirubin,Urine Negative (Negative); Blood, Urine Small mg/dL (Negative); Glucose,Urine (UA) Negative (Negative); Ketones,Urine Negative (Negative); Mucus,Urine Occasional /LPF (Occasional); Nitrite,Urine Negative (Negative); Protein,Urine Negative; RBC,Urine 1 /HPF (0-4); Squamous Epithelial Cell,Urine Occasional /HPF (0-10); Urine Appearance CLEAR (Clear); Urine Color Colorless (Yellow); Urine Specific Gravity 1.044 (1.001-1.035); Urine Urobilinogen < 2.0 EU/DL (0.2-1.0)
[2020-12-31] MEDS: POTASSIUM CHLORIDE 20 MEQ TABLET PO PRN (16:29)
[2020-12-31] MEDS: HYDROmorphone PCA 30 MG/30 ML SYRINGE IV SCH (16:54)
[2021-01-01] MEDS: diphenhydrAMINE 50 MG/1 ML VIAL IV PRN (05:24)
[2021-01-01] MEDS: SODIUM CHLORIDE 0.45% 1,000 ML IV SCH ×2 (05:25→10:30)
[2021-01-01 07:34] VITALS: BP 114/57
[2021-01-01] MEDS: FOLIC ACID 1 MG TABLET PO SCH (09:27)
[2021-01-01] MEDS: POLYETHYLENE GLYCOL POWDER 17 GM PACK PO SCH (09:27)
[2021-01-01] MEDS: HYDROmorphone PCA 30 MG/30 ML SYRINGE IV SCH (10:30)
== END 2021-01-01 10:54 | disposition home or self-care (01) | DRG 812 ==
LOC: N.ED 07:49 → N.EDINP 10:12 → SUATTDRO 10:12 → N.3E 13:55
PROVIDERS: ADMIT Emergency Medicine; ATTEND Internal Medicine

== ENCOUNTER 2021-02-13 16:38 | Inpatient (IN) ==
[2021-02-13] MEDS ORDERED: diphenhydrAMINE 50 MG/1 ML VIAL IV STA (17:36)
[2021-02-13] MEDS ORDERED: ONDANSETRON 4 MG/2 ML VIAL IV STA (17:36)
[2021-02-13] MEDS ORDERED: HYDROmorphone 2 MG/1 ML VIAL IV STA ×2 (17:36→19:09)
[2021-02-13] MEDS ORDERED: SODIUM CHLORIDE 0.9% 1,000 ML IV STA (17:48)
[2021-02-13 17:57] LABS: Basophils # 0.1 10*3/uL (0.0-0.2); Basophils % 0.5 % (0.0-0.8); Eosinophils # 0.6 10*3/uL (0.0-0.87); Hematocrit 21.9 VOL% (35.7-47.0); Hemoglobin 7.2 GM/DL (12.0-16.0); Immature Granulocytes % 0.5 %; Immature Granulocytes Absolute 0.07 #; Lymphocytes # 3.6 10*3/uL (1.4-4.0); Lymphocytes % 24.4 % (21.3-54.2); Mean Corpuscular HGB Conc 32.9 GM/DL (32-36); Mean Corpuscular Volume 86.2 FL (87-102); Mean Platelet Volume 9.7 FL (9.6-12.0); Monocytes % 11.1 % (1.7-12.7); NRBC # 0.06 10*3/uL; Neutrophils % 59.5 % (38.7-73.9); Platelet Count 406 T/CUMM (130-400); Red Blood Count 2.54 MC/CUMM (3.8-5.5); Red Cell Distribution Width 17.3 % (9.3-17.3); White Blood Count 14.8 T/CUMM (4-12)
[2021-02-13 18:23] LABS: Albumin 3.4 G/DL (3.4-5.0); Bilirubin,Total 1.9 MG/DL (0.20-1.00); Calcium 8.2 MG/DL (8.5-10.1); Osmolality,Calculated 280.1 MOS/KG (273-304); Potassium 3.5 MMOL/L (3.5-5.1); Total Protein 7.1 G/DL (6.4-8.2)
[2021-02-13 18:38] LABS: Anisocytosis 1+
[2021-02-13 18:39] LABS: Hypochromasia 1+; Ovalocytes 1+; Platelet Estimate Increased; Polychromasia 1+; Target Cells Slight
[2021-02-13 18:43] LABS: Sickle Cells Few; Tear Drop Cells Slight
[2021-02-13] MEDS ORDERED: MAGNESIUM SULF RIDER 2 GM/50 ML PREMIX IV STA (18:43)
[2021-02-13] MEDS ORDERED: DEXTROSE 50% 25 GM/50 ML VIAL IV PRN (19:47)
[2021-02-13] MEDS ORDERED: ONDANSETRON 4 MG/2 ML VIAL IV PRN (19:47)
[2021-02-13] MEDS ORDERED: diphenhydrAMINE CAP 25 MG CAPSULE PO PRN (19:47)
[2021-02-13] MEDS ORDERED: SODIUM CHLORIDE 0.9% 1,000 ML IV PRN ×2 (19:47→19:56)
[2021-02-13] MEDS ORDERED: GLUCAGON 1 MG VIAL IM PRN (19:47)
[2021-02-13] MEDS ORDERED: ALBUTEROL/IPRATROPIUM 3 ML NEB RESP TX PRN (19:47)
[2021-02-13] MEDS ORDERED: NALOXONE 0.4 MG/ML VIAL IV PRN (19:47)
[2021-02-13] MEDS ORDERED: MAGNESIUM SULF RIDER 2 GM/50 ML PREMIX IV ONE (19:55)
[2021-02-13] MEDS ORDERED: ACETAMINOPHEN 325 MG TABLET PO PRN (19:58)
[2021-02-13] MEDS ORDERED: diphenhydrAMINE 50 MG/1 ML VIAL IV PRN (19:58)
[2021-02-13] MEDS ORDERED: ENOXAPARIN 40 MG/0.4 ML SYRINGE SUBCUT SCH (20:00)
[2021-02-13] MEDS ORDERED: HYDROmorphone PCA 30 MG/30 ML SYRINGE IV SCH (20:00)
[2021-02-13] MEDS: LACTATED RINGERS 1,000 ML IV SCH (21:45)
[2021-02-14] MEDS: diphenhydrAMINE 50 MG/1 ML VIAL IV PRN ×3 (00:17→12:11)
[2021-02-14] MEDS: LACTATED RINGERS 1,000 ML IV SCH ×2 (08:59→09:58)
[2021-02-14] MEDS ORDERED: PANTOPRAZOLE 40 MG TABLET PO SCH (09:00)
[2021-02-14 11:17] LABS: Basophils # 0.1 10*3/uL (0.0-0.2); Basophils % 0.6 % (0.0-0.8); Eosinophils # 0.4 10*3/uL (0.0-0.87); Eosinophils % 3.8 % (0.00-10.9); Hematocrit 27.1 VOL% (35.7-47.0); Immature Granulocytes % 0.4 %; Immature Granulocytes Absolute 0.05 #; Lymphocytes # 3.2 10*3/uL (1.4-4.0); Lymphocytes % 27.8 % (21.3-54.2); Mean Corpuscular HGB Conc 33.2 GM/DL (32-36); Mean Corpuscular Volume 86.3 FL (87-102); Mean Platelet Volume 11.1 FL (9.6-12.0); Monocytes % 13.1 % (1.7-12.7); NRBC # 0.08 10*3/uL; Neutrophils % 54.3 % (38.7-73.9); Red Cell Distribution Width 16.1 % (9.3-17.3); White Blood Count 11.4 T/CUMM (4-12)
[2021-02-14 11:18] LABS: Platelet Count 304 T/CUMM (130-400); Red Blood Count 3.14 MC/CUMM (3.8-5.5)
[2021-02-14 11:30] LABS: Hypochromasia 1+; Platelet Estimate Adequate
[2021-02-14 11:32] LABS: Albumin 3.4 G/DL (3.4-5.0); Bilirubin,Total 1.8 MG/DL (0.20-1.00); Calcium 8.5 MG/DL (8.5-10.1); Osmolality,Calculated 279.1 MOS/KG (273-304); Potassium 3.8 MMOL/L (3.5-5.1); Total Protein 7.3 G/DL (6.4-8.2)
[2021-02-14 12:35] VITALS: BP 121/60
[2021-02-14 14:02] LABS: Bilirubin,Urine Negative (Negative); Blood, Urine Large mg/dL (Negative); Glucose,Urine (UA) Negative (Negative); Ketones,Urine Negative (Negative); Mucus,Urine Occasional /LPF (Occasional); Nitrite,Urine Negative (Negative); Protein,Urine Negative; RBC,Urine 44 /HPF (0-4); Squamous Epithelial Cell,Urine Occasional /HPF (0-10); Urine Appearance CLEAR (Clear); Urine Color Straw (Yellow); Urine Specific Gravity 1.005 (1.001-1.035); Urine Urobilinogen < 2.0 EU/DL (0.2-1.0)
[2021-02-14] MEDS ORDERED: HYDROmorphone PCA 30 MG/30 ML SYRINGE IV SCH (20:00)
== END 2021-02-14 16:10 | disposition home or self-care (01) | DRG 812 ==
LOC: N.ED 16:38 → N.EDINP 19:47 → SUATTDRO 19:47 → N.5E 20:49
PROVIDERS: ADMIT Internal Medicine; ATTEND Internal Medicine

== ENCOUNTER 2021-03-15 11:44 | Observation (INO) ==
[2021-03-15] MEDS ORDERED: SODIUM CHLORIDE 0.9% 1,000 ML IV STA (12:02)
[2021-03-15] MEDS ORDERED: ONDANSETRON 4 MG/2 ML VIAL IV STA (12:04)
[2021-03-15] MEDS ORDERED: HYDROmorphone 2 MG/1 ML VIAL IV STA (12:04)
[2021-03-15 12:57] LABS: Basophils # 0.1 10*3/uL (0.0-0.2); Basophils % 0.6 % (0.0-0.8); Eosinophils # 0.6 10*3/uL (0.0-0.87); Eosinophils % 4.5 % (0.00-10.9); Hematocrit 21.8 VOL% (35.7-47.0); Hemoglobin 7.2 GM/DL (12.0-16.0); Immature Granulocytes % 0.6 %; Immature Granulocytes Absolute 0.07 #; Lymphocytes # 3.2 10*3/uL (1.4-4.0); Lymphocytes % 25.8 % (21.3-54.2); Mean Corpuscular Volume 87.6 FL (87-102); Mean Platelet Volume 9.8 FL (9.6-12.0); Monocytes % 11.5 % (1.7-12.7); NRBC # 0.11 10*3/uL; Platelet Count 403 T/CUMM (130-400); Red Blood Count 2.49 MC/CUMM (3.8-5.5); White Blood Count 12.3 T/CUMM (4-12)
[2021-03-15] MEDS ORDERED: diphenhydrAMINE 50 MG/1 ML VIAL IV STA (13:13)
[2021-03-15 13:14] LABS: Albumin 3.7 G/DL (3.4-5.0); Bilirubin,Total 2.4 MG/DL (0.20-1.00); Calcium 8.7 MG/DL (8.5-10.1); Osmolality,Calculated 274.5 MOS/KG (273-304); Potassium 3.3 MMOL/L (3.5-5.1); Total Protein 7.4 G/DL (6.4-8.2)
[2021-03-15 13:33] LABS: Eosinophils 3 % (0-10); Lymphocytes 24 % (20-55); Segmented Neutrophils 62 % (50-85); Total Cells Counted 100
[2021-03-15 13:39] LABS: Hypochromasia Slight; Polychromasia Few; Schistocytes Slight; Sickle Cells Few; Target Cells Slight
[2021-03-15 13:40] LABS: Atypical Lymphocytes Few; Giant Platelets Few; Microcytosis Slight; Platelet Estimate Increased; Reactive Lymphocytes Slight
[2021-03-15] MEDS ORDERED: DEXTROSE 50% 25 GM/50 ML VIAL IV PRN (14:13)
[2021-03-15] MEDS ORDERED: ACETAMINOPHEN 325 MG TABLET PO PRN (14:13)
[2021-03-15] MEDS ORDERED: ONDANSETRON 4 MG/2 ML VIAL IV PRN (14:13)
[2021-03-15] MEDS ORDERED: GLUCAGON 1 MG VIAL IM PRN (14:13)
[2021-03-15] MEDS ORDERED: SODIUM CHLORIDE 0.9% 1,000 ML IV PRN ×2 (14:15→14:17)
[2021-03-15] MEDS ORDERED: NALOXONE 0.4 MG/ML VIAL IV PRN (14:15)
[2021-03-15] MEDS ORDERED: HYDROmorphone PCA 30 MG/30 ML SYRINGE IV SCH (14:30)
[2021-03-15] MEDS ORDERED: POTASSIUM CHLORIDE 20 MEQ TABLET PO ONE (15:15)
[2021-03-15] MEDS: SODIUM CHLORIDE 0.9% 1,000 ML IV SCH (17:14)
[2021-03-15] MEDS: diphenhydrAMINE 50 MG/1 ML VIAL IV PRN (18:40)
[2021-03-15] MEDS ORDERED: HYDROXYUREA 500 MG CAPSULE PO SCH (19:00)
[2021-03-15] MEDS ORDERED: diphenhydrAMINE CAP 25 MG CAPSULE PO ONE (20:54)
[2021-03-15] MEDS: LEVALBUTEROL 1.25 MG/3 ML NEB RESP TX SCH ×2 (21:10→21:20)
[2021-03-15 22:25] LABS: Hematocrit 23.7 VOL% (35.7-47.0); Hemoglobin 7.6 GM/DL (12.0-16.0)
[2021-03-16] MEDS: diphenhydrAMINE 50 MG/1 ML VIAL IV PRN ×3 (01:27→13:44)
[2021-03-16] MEDS: SODIUM CHLORIDE 0.9% 1,000 ML IV SCH ×2 (02:05→09:44)
[2021-03-16 05:10] LABS: Basophils # 0.1 10*3/uL (0.0-0.2); Basophils % 0.7 % (0.0-0.8); Eosinophils # 0.5 10*3/uL (0.0-0.87); Eosinophils % 4.8 % (0.00-10.9); Hemoglobin 7.8 GM/DL (12.0-16.0); Immature Granulocytes % 0.3 %; Immature Granulocytes Absolute 0.03 #; Lymphocytes # 3.5 10*3/uL (1.4-4.0); Lymphocytes % 32.2 % (21.3-54.2); Mean Corpuscular HGB Conc 32.5 GM/DL (32-36); Mean Corpuscular Volume 89.6 FL (87-102); Mean Platelet Volume 9.7 FL (9.6-12.0); Monocytes % 14.7 % (1.7-12.7); Neutrophils % 47.3 % (38.7-73.9); Platelet Count 340 T/CUMM (130-400); Red Blood Count 2.68 MC/CUMM (3.8-5.5); Red Cell Distribution Width 18.6 % (9.3-17.3); White Blood Count 10.7 T/CUMM (4-12)
[2021-03-16 05:25] LABS: Calcium 8.5 MG/DL (8.5-10.1); Potassium 3.5 MMOL/L (3.5-5.1)
[2021-03-16] MEDS ORDERED: FOLIC ACID 1 MG TABLET PO SCH (09:00)
[2021-03-16] MEDS: HYDROmorphone 2 MG/1 ML VIAL IV PRN ×2 (09:40→13:45)
[2021-03-16 12:39] VITALS: BP 111/66
[2021-03-16] MEDS ORDERED: HYDROmorphone PCA 30 MG/30 ML SYRINGE IV SCH (14:30)
[2021-03-16] MEDS ORDERED: FUROSEMIDE 20 MG/2 ML VIAL IV ONE (15:20)
[2021-03-17] MEDS ORDERED: FUROSEMIDE 20 MG TABLET PO SCH (09:00)
== END 2021-03-16 16:10 | disposition home or self-care (01) ==
LOC: N.EDINP 11:44 → N.ED 11:44 → N.4E 14:55
PROVIDERS: ADMIT Emergency Medicine; ATTEND Emergency Medicine

== ENCOUNTER 2021-04-30 01:22 | Inpatient (IN) ==
[2021-04-30] MEDS ORDERED: SODIUM CHLORIDE 0.9% 1,000 ML IV STA (01:42)
[2021-04-30] MEDS ORDERED: HYDROmorphone 2 MG/1 ML VIAL IV STA ×2 (01:43→03:08)
[2021-04-30] MEDS ORDERED: ONDANSETRON 4 MG/2 ML VIAL IV ONE (01:43)
[2021-04-30] MEDS ORDERED: diphenhydrAMINE 50 MG/1 ML VIAL IV STA (01:43)
[2021-04-30 02:13] LABS: Basophils # 0.1 10*3/uL (0.0-0.2); Basophils % 0.9 % (0.0-0.8); Eosinophils # 0.2 10*3/uL (0.0-0.87); Hematocrit 22.6 VOL% (35.7-47.0); Hemoglobin 7.4 GM/DL (12.0-16.0); Immature Granulocytes % 0.1 %; Immature Granulocytes Absolute 0.01 #; Lymphocytes # 4.3 10*3/uL (1.4-4.0); Lymphocytes % 46.7 % (21.3-54.2); Mean Corpuscular HGB Conc 32.7 GM/DL (32-36); Mean Corpuscular Volume 87.6 FL (87-102); Mean Platelet Volume 9.6 FL (9.6-12.0); Monocytes % 12.8 % (1.7-12.7); Neutrophils % 37.5 % (38.7-73.9); Platelet Count 352 T/CUMM (130-400); Red Blood Count 2.58 MC/CUMM (3.8-5.5); Red Cell Distribution Width 17.4 % (9.3-17.3); White Blood Count 9.2 T/CUMM (4-12)
[2021-04-30 02:36] LABS: Albumin 3.2 G/DL (3.4-5.0); Calcium 7.7 MG/DL (8.5-10.1); Osmolality,Calculated 276.4 MOS/KG (273-304); Potassium 2.8 MMOL/L (3.5-5.1); Total Protein 6.5 G/DL (6.4-8.2)
[2021-04-30] MEDS ORDERED: POTASSIUM CHLORIDE 20 MEQ TABLET PO STA (02:50)
[2021-04-30] MEDS ORDERED: ONDANSETRON 4 MG/2 ML VIAL IV PRN (03:16)
[2021-04-30] MEDS ORDERED: NALOXONE 0.4 MG/ML VIAL IV PRN (03:16)
[2021-04-30] MEDS ORDERED: SODIUM CHLORIDE 0.9% 1,000 ML IV PRN ×3 (03:16→08:22)
[2021-04-30] MEDS ORDERED: HYDROmorphone PCA 30 MG/30 ML SYRINGE IV SCH (03:30)
[2021-04-30] MEDS ORDERED: methylPREDNISolone SOD SUC 125 MG/2 ML VIAL IV STA (03:35)
[2021-04-30 03:47] LABS: Eosinophils 3 % (0-10); Lymphocytes 43 % (20-55); Segmented Neutrophils 44 % (50-85); Total Cells Counted 100
[2021-04-30 03:48] LABS: Hypochromasia 3+
[2021-04-30 03:49] LABS: Howell-Jolly Bodies 2+; Ovalocytes 2+; Sickle Cells Few
[2021-04-30 03:51] LABS: Platelet Estimate Normal; Target Cells Few
[2021-04-30] MEDS ORDERED: diphenhydrAMINE CAP 25 MG CAPSULE PO PRN (04:00)
[2021-04-30] MEDS: SODIUM CHLORIDE 0.9% 1,000 ML IV SCH ×2 (04:35→19:27)
[2021-04-30] MEDS ORDERED: ENOXAPARIN 40 MG/0.4 ML SYRINGE SUBCUT SCH (09:00)
[2021-04-30] MEDS: POTASSIUM CHLORIDE 20 MEQ TABLET PO PRN ×4 (10:01→15:18)
[2021-04-30] MEDS: diphenhydrAMINE 50 MG/1 ML VIAL IV PRN ×3 (10:01→21:20)
[2021-04-30 17:47] LABS: Hematocrit 28.8 VOL% (35.7-47.0)
[2021-04-30 17:48] LABS: Hemoglobin 9.6 GM/DL (12.0-16.0)
[2021-05-01] MEDS: diphenhydrAMINE 50 MG/1 ML VIAL IV PRN ×2 (03:14→09:02)
[2021-05-01] MEDS ORDERED: HYDROmorphone PCA 30 MG/30 ML SYRINGE IV SCH (03:30)
[2021-05-01 05:39] LABS: Albumin 3.4 G/DL (3.4-5.0); Bilirubin,Total 3.9 MG/DL (0.20-1.00); Calcium 9.2 MG/DL (8.5-10.1); Osmolality,Calculated 272.7 MOS/KG (273-304); Potassium 3.5 MMOL/L (3.5-5.1); Total Protein 7.2 G/DL (6.4-8.2)
[2021-05-01 05:41] LABS: Basophils # 0.1 10*3/uL (0.0-0.2); Basophils % 0.9 % (0.0-0.8); Eosinophils # 0.1 10*3/uL (0.0-0.87); Eosinophils % 0.6 % (0.00-10.9); Hematocrit 26.7 VOL% (35.7-47.0); Immature Granulocytes % 0.2 %; Immature Granulocytes Absolute 0.02 #; Lymphocytes # 6.3 10*3/uL (1.4-4.0); Lymphocytes % 50.6 % (21.3-54.2); Mean Corpuscular HGB Conc 33.7 GM/DL (32-36); Mean Platelet Volume 10.7 FL (9.6-12.0); Monocytes % 16.3 % (1.7-12.7); NRBC # 0.02 10*3/uL; Neutrophils % 31.4 % (38.7-73.9); Red Blood Count 3.07 MC/CUMM (3.8-5.5); Red Cell Distribution Width 17.3 % (9.3-17.3); White Blood Count 12.5 T/CUMM (4-12)
[2021-05-01 05:42] LABS: Platelet Count 173 T/CUMM (130-400)
[2021-05-01 05:48] LABS: Band Neutrophils 1 % (0-10); Lymphocytes 45 % (20-55); Platelet Estimate Normal; Segmented Neutrophils 46 % (50-85); Total Cells Counted 100
[2021-05-01 05:49] LABS: Ovalocytes Slight; Target Cells Few
[2021-05-01 05:50] LABS: Howell-Jolly Bodies Few; Pappenheimer Bodies Slight
[2021-05-01 08:51] VITALS: BP 129/78
[2021-05-01] MEDS ORDERED: HEPARIN LOCK FLUSH 500 UNIT/5 ML SYRINGE IV ONE (09:30)
[2021-05-02] MEDS ORDERED: oxyCODONE IR 5 MG TABLET PO PRN (03:30)
== END 2021-05-01 09:43 | disposition home or self-care (01) | DRG 812 ==
LOC: N.ED 01:22 → SUATTDRO 03:16 → N.EDINP 03:16 → N.2E 04:52
PROVIDERS: ADMIT Internal Medicine; ATTEND Internal Medicine

== ENCOUNTER 2021-07-11 03:03 | Inpatient (IN) ==
[2021-07-11] MEDS ORDERED: SODIUM CHLORIDE 0.9% 1,000 ML IV STA (04:01)
[2021-07-11] MEDS ORDERED: HYDROmorphone 2 MG/1 ML VIAL IV ONE ×2 (04:01→05:13)
[2021-07-11] MEDS ORDERED: ONDANSETRON 4 MG/2 ML VIAL IV STA (04:01)
[2021-07-11] MEDS ORDERED: diphenhydrAMINE 50 MG/1 ML VIAL IV STA ×3 (04:01→13:40)
[2021-07-11 04:58] LABS: Basophils # 0.1 10*3/uL (0.0-0.2); Basophils % 0.4 % (0.0-0.8); Eosinophils # 0.3 10*3/uL (0.0-0.87); Eosinophils % 2.6 % (0.00-10.9); Hematocrit 24.3 VOL% (35.7-47.0); Hemoglobin 7.9 GM/DL (12.0-16.0); Immature Granulocytes % 0.6 %; Immature Granulocytes Absolute 0.07 #; Lymphocytes # 3.4 10*3/uL (1.4-4.0); Lymphocytes % 26.7 % (21.3-54.2); Mean Corpuscular HGB Conc 32.5 GM/DL (32-36); Mean Corpuscular Volume 87.4 FL (87-102); Mean Platelet Volume 9.8 FL (9.6-12.0); Monocytes % 15.9 % (1.7-12.7); NRBC # 0.08 10*3/uL; Neutrophils % 53.8 % (38.7-73.9); Platelet Count 601 T/CUMM (130-400); Red Blood Count 2.78 MC/CUMM (3.8-5.5); Red Cell Distribution Width 15.9 % (9.3-17.3); White Blood Count 12.7 T/CUMM (4-12)
[2021-07-11 04:59] LABS: Bilirubin,Urine Negative (Negative); Blood, Urine Negative (Negative); Glucose,Urine (UA) Negative (Negative); Ketones,Urine Negative (Negative); Nitrite,Urine Negative (Negative); Protein,Urine Negative; RBC,Urine <1 /HPF (0-4); Squamous Epithelial Cell,Urine Occasional /HPF (0-10); Urine Appearance CLEAR (Clear); Urine Color Yellow (Yellow)
[2021-07-11 05:18] LABS: Eosinophils 2 % (0-10); Hypochromia 1+; Lymphocytes 32 % (20-55); Microcytosis 1+; Platelet Estimate Adequate; Segmented Neutrophils 51 % (50-85); Total Cells Counted 100
[2021-07-11 05:19] LABS: Howell-Jolly Bodies Slight; Pappenheimer Bodies Slight; Target Cells Slight
[2021-07-11 05:53] LABS: Alanine Aminotransferase 29 U/L (13-56); Albumin 3.3 G/DL (3.4-5.0); Alkaline Phosphatase 141 U/L (45-117); Aspartate Amino Transferase 52 U/L (0-37); Blood Urea Nitrogen 7 MG/DL (7-18); Calcium 8.7 MG/DL (8.5-10.1); Carbon Dioxide 26 MMOL/L (21-32); Estimated Glom Filtration Rate 149 ML/MIN; Glucose 98 MG/DL (74-106); Osmolality,Calculated 274.5 MOS/KG (273-304); Potassium 4.6 MMOL/L (3.5-5.1); Sodium 139 MMOL/L (136-145); Total Protein 7.8 G/DL (6.4-8.2)
[2021-07-11] MEDS ORDERED: ACETAMINOPHEN 325 MG TABLET PO PRN (07:27)
[2021-07-11] MEDS ORDERED: GLUCAGON 1 MG VIAL IM PRN (07:27)
[2021-07-11] MEDS ORDERED: ALBUTEROL 2.5 MG/3 ML NEB RESP TX PRN (07:27)
[2021-07-11] MEDS ORDERED: DEXTROSE 10% 250 ML BAG IV PRN (07:27)
[2021-07-11] MEDS ORDERED: BISACODYL 5 MG TABLET PO PRN (07:27)
[2021-07-11] MEDS ORDERED: NALOXONE 0.4 MG/ML VIAL IV PRN (07:27)
[2021-07-11] MEDS ORDERED: SODIUM CHLORIDE 0.9% 1,000 ML IV PRN (07:27)
[2021-07-11] MEDS ORDERED: ONDANSETRON 4 MG/2 ML VIAL IV PRN (07:27)
[2021-07-11] MEDS ORDERED: HYDROmorphone PCA 30 MG/30 ML SYRINGE IV SCH (07:30)
[2021-07-11] MEDS ORDERED: diphenhydrAMINE CAP 25 MG CAPSULE PO PRN (07:30)
[2021-07-11] MEDS: SODIUM CHLORIDE 0.9% 1,000 ML IV SCH ×2 (09:07→17:45)
[2021-07-11] MEDS: ENOXAPARIN 40 MG/0.4 ML SYRINGE SUBCUT SCH (09:08)
[2021-07-11] MEDS: diphenhydrAMINE 50 MG/1 ML VIAL IV PRN (20:08)
[2021-07-12] MEDS: diphenhydrAMINE 50 MG/1 ML VIAL IV PRN ×2 (03:16→10:17)
[2021-07-12] MEDS: SODIUM CHLORIDE 0.9% 1,000 ML IV SCH ×2 (05:37→14:18)
[2021-07-12 06:07] LABS: Albumin 2.6 G/DL (3.4-5.0); Basophils # 0.1 10*3/uL (0.0-0.2); Basophils % 0.5 % (0.0-0.8); Bilirubin,Total 1.2 MG/DL (0.20-1.00); Eosinophils # 0.4 10*3/uL (0.0-0.87); Hematocrit 22.5 VOL% (35.7-47.0); Hemoglobin 7.1 GM/DL (12.0-16.0); Immature Granulocytes % 0.6 %; Immature Granulocytes Absolute 0.08 #; Lymphocytes # 4.3 10*3/uL (1.4-4.0); Lymphocytes % 33.1 % (21.3-54.2); Mean Corpuscular HGB Conc 31.6 GM/DL (32-36); Mean Corpuscular Volume 89.6 FL (87-102); Mean Platelet Volume 10.8 FL (9.6-12.0); Monocytes % 16.7 % (1.7-12.7); NRBC # 0.06 10*3/uL; Neutrophils % 46.1 % (38.7-73.9); Platelet Count 239 T/CUMM (130-400); Potassium 3.6 MMOL/L (3.5-5.1); Red Blood Count 2.51 MC/CUMM (3.8-5.5); Total Protein 6.8 G/DL (6.4-8.2); White Blood Count 12.9 T/CUMM (4-12)
[2021-07-12 06:28] LABS: Eosinophils 4 % (0-10); Hypochromia 1+; Lymphocytes 37 % (20-55); Segmented Neutrophils 47 % (50-85); Total Cells Counted 100
[2021-07-12 06:29] LABS: Microcytosis 1+; Pappenheimer Bodies Few; Target Cells Slight
[2021-07-12 06:30] LABS: Ovalocytes Slight; Polychromasia Slight
[2021-07-12] MEDS ORDERED: HYDROmorphone PCA 30 MG/30 ML SYRINGE IV SCH (07:30)
[2021-07-12] MEDS ORDERED: SODIUM CHLORIDE 0.9% 1,000 ML IV PRN (08:50)
[2021-07-12] MEDS ORDERED: FOLIC ACID 1 MG TABLET PO SCH (09:00)
[2021-07-12] MEDS: ENOXAPARIN 40 MG/0.4 ML SYRINGE SUBCUT SCH (10:30)
[2021-07-12 12:14] VITALS: BP 107/59
[2021-07-12] MEDS ORDERED: HEPARIN LOCK FLUSH 500 UNIT/5 ML SYRINGE IV PRN (12:46)
[2021-07-12] MEDS ORDERED: HEPARIN LOCK FLUSH 500 UNIT/5 ML SYRINGE IV SCH (13:00)
[2021-07-12] MEDS ORDERED: HYDROXYUREA 500 MG CAPSULE PO SCH (21:00)
== END 2021-07-12 13:42 | disposition home or self-care (01) | DRG 812 ==
LOC: N.ED 03:03 → N.EDINP 07:27 → SUATTDRO 07:27 → N.EDINP 18:11 → N.5E 18:40
PROVIDERS: ADMIT Internal Medicine; ATTEND Internal Medicine

== ENCOUNTER 2021-09-22 20:51 | Observation (INO) ==
[2021-09-22] MEDS ORDERED: diphenhydrAMINE 50 MG/1 ML VIAL IV STA (22:34)
[2021-09-22] MEDS ORDERED: SODIUM CHLORIDE 0.9% 1,000 ML IV STA (22:34)
[2021-09-22] MEDS ORDERED: HYDROmorphone 1 MG/1 ML SYRINGE IV STA (22:34)
[2021-09-22 23:15] LABS: Basophils # 0.1 10*3/uL (0.0-0.2); Basophils % 0.7 % (0.0-0.8); Eosinophils # 0.3 10*3/uL (0.0-0.87); Eosinophils % 2.9 % (0.00-10.9); Hematocrit 20.9 VOL% (35.7-47.0); Hemoglobin 6.9 GM/DL (12.0-16.0); Immature Granulocytes % 0.3 %; Immature Granulocytes Absolute 0.03 #; Lymphocytes # 5.2 10*3/uL (1.4-4.0); Lymphocytes % 46.6 % (21.3-54.2); Mean Corpuscular Volume 83.9 FL (87-102); Monocytes # 1.5 10*3/uL (0.11-0.8); NRBC # 0.06 10*3/uL; Neutrophils % 36.5 % (38.7-73.9); Platelet Count 414 T/CUMM (130-400); Red Blood Count 2.49 MC/CUMM (3.8-5.5); White Blood Count 11.1 T/CUMM (4-12)
[2021-09-22 23:36] LABS: Eosinophils 4 % (0-10); Lymphocytes 49 % (20-55); Platelet Estimate Normal; Total Cells Counted 100
[2021-09-23 00:41] LABS: Albumin 3.3 G/DL (3.4-5.0); Calcium 8.6 MG/DL (8.5-10.1); Osmolality,Calculated 277.3 MOS/KG (273-304); Potassium 3.9 MMOL/L (3.5-5.1); Total Protein 7.1 G/DL (6.4-8.2)
[2021-09-23] MEDS ORDERED: HYDROmorphone 1 MG/1 ML SYRINGE IV STA (00:47)
[2021-09-23] MEDS ORDERED: diphenhydrAMINE 50 MG/1 ML VIAL IV STA (00:47)
[2021-09-23] MEDS ORDERED: SODIUM CHLORIDE 0.9% 1,000 ML IV PRN (01:03)
[2021-09-23] MEDS ORDERED: guaiFENesin/DM ER 600-30 MG TABLET PO PRN (01:05)
[2021-09-23] MEDS ORDERED: NICOTINE 21 MG/24 HR PATCH TRANSDERM PRN (01:05)
[2021-09-23] MEDS ORDERED: diphenhydrAMINE CAP 25 MG CAPSULE PO PRN (01:05)
[2021-09-23] MEDS ORDERED: hydrALAZINE 20 MG/1 ML VIAL IV PRN (01:05)
[2021-09-23] MEDS ORDERED: GLUCAGON 1 MG VIAL IM PRN (01:05)
[2021-09-23] MEDS ORDERED: ZALEPLON 5 MG CAPSULE PO PRN (01:05)
[2021-09-23] MEDS ORDERED: ONDANSETRON 4 MG/2 ML VIAL IV PRN (01:05)
[2021-09-23] MEDS ORDERED: ACETAMINOPHEN 325 MG TABLET PO PRN (01:05)
[2021-09-23] MEDS ORDERED: DEXTROSE 10% 250 ML BAG IV PRN (01:22)
[2021-09-23] MEDS: FOLIC ACID 1 MG TABLET PO SCH ×3 (02:30→20:04)
[2021-09-23] MEDS: HYDROmorphone 1 MG/1 ML SYRINGE IV PRN ×4 (05:17→20:04)
[2021-09-23] MEDS: diphenhydrAMINE 50 MG/1 ML VIAL IV PRN ×3 (07:14→20:04)
[2021-09-23] MEDS: PANTOPRAZOLE 40 MG TABLET PO SCH (08:41)
[2021-09-23] MEDS ORDERED: diphenhydrAMINE CAP 25 MG CAPSULE PO ONE (09:07)
[2021-09-23] MEDS: SODIUM CHLORIDE 0.9% 1,000 ML IV SCH ×2 (11:17→20:17)
[2021-09-23 12:58] LABS: Basophils # 0.1 10*3/uL (0.0-0.2); Basophils % 0.8 % (0.0-0.8); Eosinophils # 0.3 10*3/uL (0.0-0.87); Eosinophils % 3.1 % (0.00-10.9); Hematocrit 30.4 VOL% (35.7-47.0); Immature Granulocytes % 0.5 %; Immature Granulocytes Absolute 0.05 #; Lymphocytes # 3.1 10*3/uL (1.4-4.0); Lymphocytes % 31.9 % (21.3-54.2); Mean Corpuscular HGB Conc 32.9 GM/DL (32-36); Mean Corpuscular Volume 82.6 FL (87-102); Monocytes # 1.3 10*3/uL (0.11-0.8); Monocytes % 13.2 % (1.7-12.7); NRBC # 0.03 10*3/uL; Neutrophils % 50.5 % (38.7-73.9); Platelet Count 377 T/CUMM (130-400); Red Blood Count 3.68 MC/CUMM (3.8-5.5); Red Cell Distribution Width 16.6 % (9.3-17.3); White Blood Count 9.7 T/CUMM (4-12)
[2021-09-23 13:27] LABS: Osmolality,Calculated 278.3 MOS/KG (273-304); Potassium 3.8 MMOL/L (3.5-5.1)
[2021-09-23 15:21] LABS: Band Neutrophils 2 % (0-10); Eosinophils 2 % (0-10); Lymphocytes 39 % (20-55); Total Cells Counted 100
[2021-09-23 15:22] LABS: Platelet Estimate Normal; Polychromasia 1+; Sickle Cells 1+
[2021-09-23] MEDS ORDERED: HYDROXYUREA 500 MG CAPSULE PO SCH (19:00)
[2021-09-24] MEDS: HYDROmorphone 1 MG/1 ML SYRINGE IV PRN ×3 (00:38→12:26)
[2021-09-24] MEDS: diphenhydrAMINE 50 MG/1 ML VIAL IV PRN ×2 (02:46→09:28)
[2021-09-24] MEDS: FOLIC ACID 1 MG TABLET PO SCH (08:01)
[2021-09-24] MEDS: PANTOPRAZOLE 40 MG TABLET PO SCH (08:01)
[2021-09-24] MEDS: SODIUM CHLORIDE 0.9% 1,000 ML IV SCH (09:28)
[2021-09-24 12:04] VITALS: BP 114/62
[2021-09-25] MEDS ORDERED: MONTELUKAST 10 MG TABLET PO SCH (09:00)
== END 2021-09-24 14:21 | disposition home or self-care (01) ==
LOC: N.ED 20:51 → N.EDINP 20:51 → SUATTDRO 09-23 01:05 → N.5E 09-23 02:15
PROVIDERS: ADMIT Internal Medicine; ATTEND Internal Medicine

== ENCOUNTER 2022-02-07 09:51 | Inpatient (IN) ==
[2022-02-07] MEDS ORDERED: ONDANSETRON 4 MG/2 ML VIAL IV STA (10:51)
[2022-02-07] MEDS ORDERED: HYDROmorphone 1 MG/1 ML SYRINGE IV STA (10:51)
[2022-02-07] MEDS ORDERED: fentaNYL 100 MCG/2 ML VIAL IV STA (10:51)
[2022-02-07 11:34] LABS: Basophils % 0.3 % (0.0-0.8); Eosinophils # 0.1 10*3/uL (0.0-0.87); Hematocrit 21.2 VOL% (35.7-47.0); Hemoglobin 7.1 GM/DL (12.0-16.0); Immature Granulocytes % 0.8 %; Immature Granulocytes Absolute 0.11 #; Lymphocytes # 2.9 10*3/uL (1.4-4.0); Mean Corpuscular HGB Conc 33.5 GM/DL (32-36); Mean Corpuscular Volume 83.5 FL (87-102); Mean Platelet Volume 9.6 FL (9.6-12.0); Monocytes # 1.8 10*3/uL (0.11-0.8); Neutrophils % 63.9 % (38.7-73.9); Platelet Count 517 T/CUMM (130-400); Red Blood Count 2.54 MC/CUMM (3.8-5.5); Red Cell Distribution Width 16.4 % (9.3-17.3); White Blood Count 13.8 T/CUMM (4-12)
[2022-02-07 11:53] LABS: Albumin 2.9 G/DL (3.4-5.0); Bilirubin,Total 2.3 MG/DL (0.20-1.00); Calcium 8.8 MG/DL (8.5-10.1); Potassium 3.5 MMOL/L (3.5-5.1); Total Protein 7.1 G/DL (6.4-8.2)
[2022-02-07] MEDS ORDERED: diphenhydrAMINE 50 MG/1 ML VIAL IV STA (13:51)
[2022-02-07] MEDS ORDERED: DEXTROSE 10% 250 ML BAG IV PRN (13:53)
[2022-02-07] MEDS ORDERED: GLUCAGON 1 MG VIAL IM PRN (13:53)
[2022-02-07] MEDS ORDERED: ONDANSETRON 4 MG/2 ML VIAL IV PRN (13:53)
[2022-02-07] MEDS ORDERED: NALOXONE 0.4 MG/ML VIAL IV PRN (13:57)
[2022-02-07] MEDS ORDERED: SODIUM CHLORIDE 0.9% 1,000 ML IV PRN (14:23)
[2022-02-07] MEDS ORDERED: ALBUTEROL 2.5 MG/3 ML NEB RESP TX PRN (14:26)
[2022-02-07] MEDS: LACTATED RINGERS 1,000 ML IV SCH (15:22)
[2022-02-07] MEDS ORDERED: HYDROmorphone PCA 30 MG/30 ML SYRINGE IV SCH (15:30)
[2022-02-07] MEDS: ENOXAPARIN 40 MG/0.4 ML SYRINGE SUBCUT SCH (15:30)
[2022-02-07] MEDS: HYDROmorphone 1 MG/1 ML SYRINGE IV PRN ×2 (16:32→20:11)
[2022-02-07] MEDS: diphenhydrAMINE 50 MG/1 ML VIAL IV PRN ×2 (16:32→22:25)
[2022-02-07] MEDS: ACETAMINOPHEN 325 MG TABLET PO PRN ×2 (17:29→21:36)
[2022-02-07 17:36] LABS: RBC,Urine 1 /HPF (0-4); Squamous Epithelial Cell,Urine Occasional /HPF (0-10)
[2022-02-07 17:39] LABS: Glucose,Urine (UA) Negative (Negative); Ketones,Urine Negative (Negative); Nitrite,Urine Negative (Negative); Protein,Urine Negative (Negative); Urine Appearance Clear (Clear); Urine Color Yellow (Yellow); Urine Specific Gravity 1.015 (1.001-1.035)
[2022-02-07 17:40] LABS: Bilirubin,Urine Negative (Negative); Blood, Urine Small mg/dL (Negative)
[2022-02-08] MEDS: HYDROmorphone 1 MG/1 ML SYRINGE IV PRN ×6 (00:10→20:55)
[2022-02-08] MEDS: LACTATED RINGERS 1,000 ML IV SCH ×4 (00:11→20:56)
[2022-02-08] MEDS: diphenhydrAMINE 50 MG/1 ML VIAL IV PRN ×4 (04:27→23:00)
[2022-02-08 05:32] LABS: Basophils # 0.1 10*3/uL (0.0-0.2); Basophils % 0.3 % (0.0-0.8); Eosinophils % 0.2 % (0.00-10.9); Hematocrit 29.2 VOL% (35.7-47.0); Hemoglobin 9.6 GM/DL (12.0-16.0); Immature Granulocytes % 1.4 %; Immature Granulocytes Absolute 0.33 #; Lymphocytes # 3.1 10*3/uL (1.4-4.0); Lymphocytes % 13.5 % (21.3-54.2); Mean Corpuscular HGB Conc 32.9 GM/DL (32-36); Mean Corpuscular Volume 85.9 FL (87-102); Mean Platelet Volume 9.9 FL (9.6-12.0); Monocytes # 2.7 10*3/uL (0.11-0.8); Monocytes % 11.9 % (1.7-12.7); Neutrophils % 72.7 % (38.7-73.9); Platelet Count 363 T/CUMM (130-400); Red Cell Distribution Width 16.5 % (9.3-17.3)
[2022-02-08 05:51] LABS: Albumin 2.8 G/DL (3.4-5.0); Bilirubin,Total 3.5 MG/DL (0.20-1.00); Calcium 8.9 MG/DL (8.5-10.1); Potassium 3.5 MMOL/L (3.5-5.1); Total Protein 6.9 G/DL (6.4-8.2)
[2022-02-08 05:55] LABS: Lymphocytes 18 % (20-55); Total Cells Counted 100
[2022-02-08 05:56] LABS: Target Cells Slight
[2022-02-08 05:57] LABS: Platelet Estimate Normal
[2022-02-08] MEDS: ACETAMINOPHEN 325 MG TABLET PO PRN (08:11)
[2022-02-08] MEDS: MONTELUKAST 10 MG TABLET PO SCH (08:12)
[2022-02-08] MEDS ORDERED: PANTOPRAZOLE 40 MG TABLET PO SCH (09:00)
[2022-02-08] MEDS ORDERED: FOLIC ACID 1 MG TABLET PO SCH (09:00)
[2022-02-08] MEDS: PIPERACILLIN/TAZOBACTAM 3,375 MG in SODIUM CHLORIDE 0.9% 100 ML IV SCH ×2 (13:10→20:56)
[2022-02-08] MEDS: ENOXAPARIN 40 MG/0.4 ML SYRINGE SUBCUT SCH (14:48)
[2022-02-09] MEDS: HYDROmorphone 1 MG/1 ML SYRINGE IV PRN ×6 (01:01→22:00)
[2022-02-09] MEDS: diphenhydrAMINE 50 MG/1 ML VIAL IV PRN ×3 (05:03→18:10)
[2022-02-09] MEDS: PIPERACILLIN/TAZOBACTAM 3,375 MG in SODIUM CHLORIDE 0.9% 100 ML IV SCH ×3 (05:04→22:00)
[2022-02-09 06:48] LABS: Basophils # 0.1 10*3/uL (0.0-0.2); Basophils % 0.4 % (0.0-0.8); Eosinophils # 0.2 10*3/uL (0.0-0.87); Eosinophils % 1.4 % (0.00-10.9); Hematocrit 27.9 VOL% (35.7-47.0); Hemoglobin 9.2 GM/DL (12.0-16.0); Immature Granulocytes % 0.9 %; Immature Granulocytes Absolute 0.13 #; Lymphocytes # 2.5 10*3/uL (1.4-4.0); Lymphocytes % 16.1 % (21.3-54.2); Mean Corpuscular Volume 84.8 FL (87-102); Mean Platelet Volume 10.7 FL (9.6-12.0); Monocytes % 12.9 % (1.7-12.7); Neutrophils % 68.3 % (38.7-73.9); Platelet Count 223 T/CUMM (130-400); Red Blood Count 3.29 MC/CUMM (3.8-5.5); Red Cell Distribution Width 16.5 % (9.3-17.3); White Blood Count 15.2 T/CUMM (4-12)
[2022-02-09 07:14] LABS: Albumin 2.6 G/DL (3.4-5.0); Bilirubin,Total 2.5 MG/DL (0.20-1.00); Calcium 8.6 MG/DL (8.5-10.1); Osmolality,Calculated 266.1 MOS/KG (273-304); Potassium 3.4 MMOL/L (3.5-5.1); Total Protein 6.6 G/DL (6.4-8.2)
[2022-02-09] MEDS: MONTELUKAST 10 MG TABLET PO SCH (09:27)
[2022-02-09] MEDS: FOLIC ACID 1 MG TABLET PO SCH (09:52)
[2022-02-09] MEDS: ENOXAPARIN 40 MG/0.4 ML SYRINGE SUBCUT SCH (15:06)
[2022-02-09] MEDS: LACTATED RINGERS 1,000 ML IV SCH ×2 (17:47→18:29)
[2022-02-10] MEDS: diphenhydrAMINE 50 MG/1 ML VIAL IV PRN ×4 (00:50→21:34)
[2022-02-10] MEDS: HYDROmorphone 1 MG/1 ML SYRINGE IV PRN ×6 (01:50→23:49)
[2022-02-10] MEDS: PIPERACILLIN/TAZOBACTAM 3,375 MG in SODIUM CHLORIDE 0.9% 100 ML IV SCH ×3 (05:00→21:34)
[2022-02-10] MEDS: LACTATED RINGERS 1,000 ML IV SCH (05:00)
[2022-02-10] MEDS: MONTELUKAST 10 MG TABLET PO SCH (08:34)
[2022-02-10] MEDS: FOLIC ACID 1 MG TABLET PO SCH (09:17)
[2022-02-10] MEDS: ENOXAPARIN 40 MG/0.4 ML SYRINGE SUBCUT SCH (15:00)
[2022-02-11] MEDS: diphenhydrAMINE 50 MG/1 ML VIAL IV PRN ×4 (02:44→20:54)
[2022-02-11] MEDS: HYDROmorphone 1 MG/1 ML SYRINGE IV PRN ×6 (02:49→23:53)
[2022-02-11] MEDS: LACTATED RINGERS 1,000 ML IV SCH ×4 (02:49→20:57)
[2022-02-11] MEDS: PIPERACILLIN/TAZOBACTAM 3,375 MG in SODIUM CHLORIDE 0.9% 100 ML IV SCH ×3 (04:32→22:23)
[2022-02-11] MEDS ORDERED: MEROPENEM 500 MG in SODIUM CHLORIDE 0.9% 100 ML IV SCH (09:00)
[2022-02-11] MEDS: FOLIC ACID 1 MG TABLET PO SCH (09:01)
[2022-02-11] MEDS: MONTELUKAST 10 MG TABLET PO SCH (09:01)
[2022-02-11] MEDS: ENOXAPARIN 40 MG/0.4 ML SYRINGE SUBCUT SCH (15:06)
[2022-02-12] MEDS: HYDROmorphone 1 MG/1 ML SYRINGE IV PRN ×6 (03:09→23:54)
[2022-02-12] MEDS: diphenhydrAMINE 50 MG/1 ML VIAL IV PRN ×3 (03:10→20:31)
[2022-02-12] MEDS: PIPERACILLIN/TAZOBACTAM 3,375 MG in SODIUM CHLORIDE 0.9% 100 ML IV SCH ×3 (05:08→22:14)
[2022-02-12] MEDS ORDERED: LIDOCAINE 2% 5 ML VIAL ONE (09:41)
[2022-02-12] MEDS ORDERED: propofoL 200 MG/20 ML VIAL IV ONE ×3 (09:41→10:39)
[2022-02-12] MEDS ORDERED: LIDOCAINE 1% 5 ML VIAL ONE (10:23)
[2022-02-12] MEDS ORDERED: LIDOCAINE 2%/EPI 20 ML VIAL ONE (10:23)
[2022-02-12] MEDS ORDERED: BUPIVACAINE MPF 0.25% 10 ML VIAL ONE (10:23)
[2022-02-12] MEDS ORDERED: LACTATED RINGERS 1,000 ML IV SCH (10:30)
[2022-02-12] MEDS ORDERED: TISSUE ADHESIVE 1 EACH APPLICATOR TOP ONE (10:41)
[2022-02-12] MEDS: MONTELUKAST 10 MG TABLET PO SCH (11:13)
[2022-02-12] MEDS: FOLIC ACID 1 MG TABLET PO SCH (11:13)
[2022-02-12] MEDS: LACTATED RINGERS 1,000 ML IV SCH ×2 (14:33→18:24)
[2022-02-12] MEDS: ENOXAPARIN 40 MG/0.4 ML SYRINGE SUBCUT SCH (14:43)
[2022-02-13] MEDS: HYDROmorphone 1 MG/1 ML SYRINGE IV PRN ×6 (03:06→21:28)
[2022-02-13] MEDS: diphenhydrAMINE 50 MG/1 ML VIAL IV PRN ×4 (03:07→19:41)
[2022-02-13 05:58] LABS: Basophils % 0.4 % (0.0-0.8); Eosinophils # 0.1 10*3/uL (0.0-0.87); Eosinophils % 1.5 % (0.00-10.9); Hematocrit 27.5 VOL% (35.7-47.0); Immature Granulocytes % 0.2 %; Immature Granulocytes Absolute 0.02 #; Lymphocytes # 3.2 10*3/uL (1.4-4.0); Lymphocytes % 33.8 % (21.3-54.2); Mean Corpuscular HGB Conc 32.7 GM/DL (32-36); Mean Corpuscular Volume 86.2 FL (87-102); Mean Platelet Volume 10.7 FL (9.6-12.0); Monocytes # 1.1 10*3/uL (0.11-0.8); Monocytes % 11.5 % (1.7-12.7); Neutrophils % 52.6 % (38.7-73.9); Platelet Count 340 T/CUMM (130-400); Red Blood Count 3.19 MC/CUMM (3.8-5.5); Red Cell Distribution Width 16.6 % (9.3-17.3); White Blood Count 9.4 T/CUMM (4-12)
[2022-02-13 06:12] LABS: Calcium 9.2 MG/DL (8.5-10.1); Osmolality,Calculated 268.1 MOS/KG (273-304); Potassium 4.2 MMOL/L (3.5-5.1)
[2022-02-13] MEDS: PIPERACILLIN/TAZOBACTAM 3,375 MG in SODIUM CHLORIDE 0.9% 100 ML IV SCH ×3 (06:12→22:25)
[2022-02-13 06:19] LABS: Hypochromia 1+; Microcytosis 1+; Platelet Estimate Adequate
[2022-02-13] MEDS: MONTELUKAST 10 MG TABLET PO SCH (09:05)
[2022-02-13] MEDS: FOLIC ACID 1 MG TABLET PO SCH (14:24)
[2022-02-13] MEDS: ENOXAPARIN 40 MG/0.4 ML SYRINGE SUBCUT SCH (16:17)
[2022-02-13] MEDS: LACTATED RINGERS 1,000 ML IV SCH (19:42)
[2022-02-14] MEDS: HYDROmorphone 1 MG/1 ML SYRINGE IV PRN ×4 (00:28→11:11)
[2022-02-14] MEDS: diphenhydrAMINE 50 MG/1 ML VIAL IV PRN ×4 (00:45→19:21)
[2022-02-14] MEDS: PIPERACILLIN/TAZOBACTAM 3,375 MG in SODIUM CHLORIDE 0.9% 100 ML IV SCH ×3 (05:08→21:11)
[2022-02-14] MEDS: LACTATED RINGERS 1,000 ML IV SCH ×3 (05:08→19:22)
[2022-02-14 05:56] LABS: Basophils # 0.1 10*3/uL (0.0-0.2); Basophils % 0.7 % (0.0-0.8); Eosinophils # 0.7 10*3/uL (0.0-0.87); Hematocrit 26.7 VOL% (35.7-47.0); Hemoglobin 8.6 GM/DL (12.0-16.0); Immature Granulocytes % 0.3 %; Immature Granulocytes Absolute 0.03 #; Lymphocytes # 4.2 10*3/uL (1.4-4.0); Lymphocytes % 44.2 % (21.3-54.2); Mean Corpuscular HGB Conc 32.2 GM/DL (32-36); Mean Corpuscular Volume 86.7 FL (87-102); Mean Platelet Volume 9.6 FL (9.6-12.0); Monocytes # 1.1 10*3/uL (0.11-0.8); Monocytes % 11.4 % (1.7-12.7); Neutrophils % 36.4 % (38.7-73.9); Platelet Count 428 T/CUMM (130-400); Red Blood Count 3.08 MC/CUMM (3.8-5.5); Red Cell Distribution Width 16.5 % (9.3-17.3); White Blood Count 9.4 T/CUMM (4-12)
[2022-02-14 06:12] LABS: Calcium 8.8 MG/DL (8.5-10.1); Osmolality,Calculated 271.8 MOS/KG (273-304); Potassium 3.3 MMOL/L (3.5-5.1)
[2022-02-14 06:51] LABS: Eosinophils 7 % (0-10); Hypochromia Slight; Lymphocytes 48 % (20-55); Microcytosis Slight; Platelet Estimate Adequate; Total Cells Counted 100
[2022-02-14] MEDS: MONTELUKAST 10 MG TABLET PO SCH (10:25)
[2022-02-14] MEDS: FOLIC ACID 1 MG TABLET PO SCH (10:25)
[2022-02-14] MEDS: ENOXAPARIN 40 MG/0.4 ML SYRINGE SUBCUT SCH (14:36)
[2022-02-15] MEDS: diphenhydrAMINE 50 MG/1 ML VIAL IV PRN ×3 (01:18→12:50)
[2022-02-15 05:30] LABS: Basophils # 0.1 10*3/uL (0.0-0.2); Basophils % 1.1 % (0.0-0.8); Eosinophils # 0.6 10*3/uL (0.0-0.87); Eosinophils % 8.3 % (0.00-10.9); Hematocrit 25.4 VOL% (35.7-47.0); Hemoglobin 8.3 GM/DL (12.0-16.0); Immature Granulocytes % 0.1 %; Immature Granulocytes Absolute 0.01 #; Lymphocytes # 3.5 10*3/uL (1.4-4.0); Lymphocytes % 48.8 % (21.3-54.2); Mean Corpuscular HGB Conc 32.7 GM/DL (32-36); Mean Corpuscular Volume 84.9 FL (87-102); Mean Platelet Volume 9.4 FL (9.6-12.0); Monocytes # 0.7 10*3/uL (0.11-0.8); Monocytes % 10.1 % (1.7-12.7); Neutrophils % 31.6 % (38.7-73.9); Platelet Count 453 T/CUMM (130-400); Red Blood Count 2.99 MC/CUMM (3.8-5.5); Red Cell Distribution Width 16.2 % (9.3-17.3); White Blood Count 7.2 T/CUMM (4-12)
[2022-02-15 05:42] LABS: Osmolality,Calculated 270.8 MOS/KG (273-304); Potassium 3.3 MMOL/L (3.5-5.1)
[2022-02-15 06:12] LABS: Eosinophils 9 % (0-10); Lymphocytes 37 % (20-55); Total Cells Counted 100
[2022-02-15 06:13] LABS: Hypochromia Slight; Microcytosis Slight
[2022-02-15 06:14] LABS: Target Cells Slight
[2022-02-15 06:15] LABS: Ovalocytes Slight
[2022-02-15 06:16] LABS: Platelet Estimate Increased
[2022-02-15] MEDS: PIPERACILLIN/TAZOBACTAM 3,375 MG in SODIUM CHLORIDE 0.9% 100 ML IV SCH (06:19)
[2022-02-15] MEDS: LACTATED RINGERS 1,000 ML IV SCH (06:20)
[2022-02-15] MEDS: MONTELUKAST 10 MG TABLET PO SCH (08:08)
[2022-02-15] MEDS: FOLIC ACID 1 MG TABLET PO SCH (08:08)
[2022-02-15] MEDS ORDERED: ERTAPENEM 1,000 MG in SODIUM CHLORIDE 0.9% 100 ML IV SCH ×2 (11:00)
[2022-02-15 11:45] VITALS: BP 103/57
== END 2022-02-15 16:15 | disposition home or self-care (01) | DRG 832 ==
LOC: N.ED 09:51 → N.EDINP 13:52 → SUATTDRO 13:52 → N.3E 15:09
PROVIDERS: ADMIT Hospitalist; ATTEND Hospitalist